=== PATIENT | female | born 1980 | race African-American/Black ===

== ENCOUNTER → 2016-04-22 | Outpatient (CLI) | payer OTHER ==
[~2016-04-22] MED LIST: ARTIOIN OP; ATV/1 PO; BND25 PO; CYAN1LOZ; CYMBALTA PO; DOCU-94 PO; DULO-24 PO; GLC/500 PO; LORA5TAB3 PO; SENN-61 PO; TRIH2TAB2 PO
[2016-04-22 14:05] LABS: BASO % 0.1 %; BASO ABS # 0.01 K/uL (0-0.2); COMPLETE YES; EOS % 2.9 %; HEMATOCRIT 38.1 % (37-47); IG% 0.1 %; LYMPH % 49.9 %; LYMPH ABS # 3.43 K/uL (1.2-3.4); MEAN CELL VOLUME 86.2 fL (80-100); MEAN CORPUSCULAR HGB CONC 33.6 g/dl (32-36); MEAN PLATELET VOLUME 10.3 fL (7.4-10.4); MONO % 7.9 %; NEUT % 39.1 %; PLATELET COUNT 216 K/uL (130-400); RED BLOOD COUNT 4.42 M/uL (4.2-5.4); WHITE BLOOD COUNT 6.87 K/uL (4.8-10.8)
[2016-04-22 14:16] LABS: ALT/SGPT 29 U/L (12-78); AST/SGOT 16 U/L (15-37); BLOOD UREA NITROGEN 11 mg/dl (7-18); BUN/CREATININE RATIO 11.5 (10-20); CALCIUM 8.6 mg/dl (8.5-10.1); CARBON DIOXIDE 26 mmol/L (21-32); CHLORIDE 104 mmol/L (98-107); CREATININE 0.91 mg/dl (0.60-1.20); GLUCOSE 164 mg/dl (70-99); POTASSIUM 3.9 mmol/L (3.5-5.1); SODIUM 140 mmol/L (136-145)
[2016-04-22 14:24] LABS: ALB/GLOB RATIO 0.8 (0.9-2); ALKALINE PHOSPHATASE 54 U/L (45-117); FERRITIN 85.2 ng/ml (8.0-388.0); TOTAL IRON BINDING CAPACITY 291 mcg/dl (250-450)
== END | disposition home or self-care (01) ==
LOC: C.LABBC 09:30
PROVIDERS: ATTEND Family Medicine
DX: E28.2 Polycystic ovarian syndrome (principal); D50.9 Iron deficiency anemia, unspecified; F31.9 Bipolar disorder, unspecified; K59.09 Other constipation

== ENCOUNTER → 2016-10-06 | Outpatient (CLI) | payer OTHER ==
[2016-10-06 18:06] LABS: BLOOD UREA NITROGEN 16 mg/dl (7-18); BUN/CREATININE RATIO 12.1 (10-20); CALCIUM 9.6 mg/dl (8.5-10.1); CARBON DIOXIDE 29 mmol/L (21-32); CHLORIDE 93 mmol/L (98-107); POTASSIUM 4.6 mmol/L (3.5-5.1); SODIUM 128 mmol/L (136-145)
[2016-10-06 18:09] LABS: GLUCOSE 623 mg/dl (70-99)
[2016-10-06 18:28] LABS: BETA-HYDROXYBUTYRATE 2.06 mg/dL (0.2-2.81)
[2016-10-07 06:42] LABS: ESTIMATED AVERAGE GLUCOSE 275 mg/dl
[2016-10-07 06:55] LABS: HA1C FLAG Peak Unknown (Normal)
== END | disposition home or self-care (01) ==
LOC: C.LABBC 15:18
PROVIDERS: ATTEND Physician Assistant Medical
DX: Z00.00 Encounter for general adult medical examination without abnormal findings (principal); K59.09 Other constipation; R73.03 Prediabetes; E28.2 Polycystic ovarian syndrome

== ENCOUNTER 2016-10-07 11:18 | Emergency (ER) | payer OTHER ==
[~2016-10-07] VITALS: Ht 162.6 cm; Wt 104.0 kg
[~2016-10-07 11:18] MED LIST changes: -ARTIOIN OP; -ATV/1 PO; -BND25 PO; -CYAN1LOZ; -DOCU-94 PO; -DULO-24 PO; -GLC/500 PO; -LORA5TAB3 PO; -SENN-61 PO; -TRIH2TAB2 PO
[2016-10-07 11:22] VITALS: TEMP 36.7; Ht 162.6 cm; Wt 104.0 kg
[2016-10-07] MEDS ORDERED: SODIUM CHLORIDE 0.9% 1000ML 2,000 ML IV STA (11:27)
--- NOTE | 2016-10-07 11:39 | EMERGENCY ROOM VISIT NOTE ---
History Report prepared by Dennise: Emily Cabrera Under the Supervision of: Dr. Gaurav Franco M.D. First contact with patient: 11:25 Chief Complaint: HYPERGLYCEMIA Stated Complaint: HIGH BLOOD SUGER History of Present Illness The patient is a 36 year old female who presents to the Emergency Room with complaints of persistent hyperglycemia that was found yesterday. She currently rates her discomfort as a 4/10 in severity. The patient states that over the past two weeks she has been feeling poorly, but attributed her symptoms to her anti-psychotic medications she is prescribed. She states that she consulted her psychiatrist and she was instructed to see her PCP. The patient states that over the past two weeks she has been noticing an increase in urination, and increase in thirst, general weakness, dry mouth, and her hair falling out. She states that she saw her PCP yesterday and had a physical done. The patient states that she was found to have a blood glucose over 600. She states that she was instructed to come to the emergency department for further treatment and work up due to her elevated blood glucose levels. The patient denies any history of diabetes or elevated blood glucose levels. She states that she has been experiencing diarrhea, but denies any vomiting. The patient states that she has been feeling faint with activity. She reports a history of bi-polar disorder. Source of History: patient Onset: yesterday Position: other (global) Symptom Intensity: 4/10 Quality: other (hyperglycemia) Timing: other (persistent) Associated Symptoms: + diarrhea, + weakness, No vomiting Note: Associated Symptoms: increase in urination, increase in thirst, hair falling out , feeling faint. Review of Systems See HPI for pertinent positives & negatives. A total of 10 systems reviewed and were otherwise negative. Past Medical & Surgical Medical Problems: (1) Fracture of metatarsal bone (2) No chronic problems Family History Hypertension Social History Smoking Status: Never Smoker Alcohol Use: none Drug Use: none Marital Status: single Housing Status: unknown Occupation Status: employed Current/Historical Medications Scheduled Artificial Tears Oph Oint (Lacri-Lube Sop Oph Oint), 0.25-0.5 INCH OP QID Diphenhydramine Hcl (Benadryl), 25 MG PO BID Docusate Sodium (Colace), 1 CAP PO BID Duloxetine HCl (Cymbalta), 1 CAP PO DAILY Loratadine & Pseudoephedrine (Claritin-D 12 Hour), 1 TAB PO BID Lorazepam (Ativan), 1 MG PO Q6H Metformin Hcl (Glucophage), 500 MG PO DAILY Trihexyphenidyl Hcl (Artane), 1 TAB PO BID Miscellaneous Medications Cyanocobalamin (Vitamin B 12) Senna (Senokot), 1 TAB PO Allergies Coded Allergies: NUTS (Verified Allergy, Severe, HIVES, 10/07/16) Physical Exam Vital Signs Date Time Temp Pulse Resp B/P (MAP) Pulse Ox O2 Delivery O2 Flow Rate FiO2 10/07/16 12:59 88 18 100/56 94 10/07/16 11:22 36.7 98 20 117/70 94 Room Air Physical Exam GENERAL: Patient is in no acute distress. HEENT: No acute trauma, normocephalic atraumatic, mucous membranes dry, no nasal congestion, no scleral icterus. NECK: No stridor, no adenopathy, no meningismus, trachea is midline. LUNGS: Clear to auscultation bilaterally, no wheeze, no rhonchi, breath sounds equal. HEART: Without murmurs gallops or rubs, regular rate and rhythm. ABDOMEN: Soft, nontender, bowel sounds positive, no hernias, no peritonitis. EXTREMITIES: No cyanosis or edema, full range of motion of all the joints without pain or difficulty, no signs for acute trauma. NEUROLOGIC: Oriented x 3, no acute motor or sensory deficits, no focal weakness. SKIN: No rash, no jaundice, no diaphoresis. Medical Decision & Procedures ER Provider Diagnostic Interpretation: X-ray results as stated below per interpretation by me and the radiologist: CHEST ONE VIEW PORTABLE CLINICAL HISTORY: 36 years-old Female presenting with EVALUATE ALTERED MENTAL STATUS/WEAKNESS. TECHNIQUE: Portable upright AP view of the chest was obtained. COMPARISON: 12/31/2014. FINDINGS: Cardiomediastinal silhouette normal. Lungs and pleural spaces clear. Osseous structures normal. Upper abdomen normal. IMPRESSION: 1. No acute cardiopulmonary disease. Electronically signed by: Chapo Willson M.D. 10/07/2016 11:49 AM Dictated Date/Time: 10/07/2016 11:48 AM Laboratory Results 10/07/16 11:40 Red Blood Count 4.72, Mean Corpuscular Volume 81.6, Mean Corpuscular Hemoglobin 28.4, Mean Corpuscular Hemoglobin Concent 34.8, Mean Platelet Volume 11.5, Neutrophils (%) (Auto) 44.1, Lymphocytes (%) (Auto) 45.6, Monocytes (%) (Auto) 7.4, Eosinophils (%) (Auto) 2.3, Basophils (%) (Auto) 0.3, Neutrophils # (Auto) 2.68, Lymphocytes # (Auto) 2.77, Monocytes # (Auto) 0.45, Eosinophils # (Auto) 0.14, Basophils # (Auto) 0.02 10/07/16 11:40 Test 10/07/16 11:40 10/07/16 13:00 10/07/16 14:26 White Blood Count 6.08 K/uL (4.8-10.8) Red Blood Count 4.72 M/uL (4.2-5.4) Hemoglobin 13.4 g/dL (12.0-16.0) Hematocrit 38.5 % (37-47) Mean Corpuscular Volume 81.6 fL (80-100) Mean Corpuscular Hemoglobin 28.4 pg (25-34) Mean Corpuscular Hemoglobin Concent 34.8 g/dl (32-36) Platelet Count 176 K/uL (130-400) Mean Platelet Volume 11.5 fL (7.4-10.4) Neutrophils (%) (Auto) 44.1 % Lymphocytes (%) (Auto) 45.6 % Monocytes (%) (Auto) 7.4 % Eosinophils (%) (Auto) 2.3 % Basophils (%) (Auto) 0.3 % Neutrophils # (Auto) 2.68 K/uL (1.4-6.5) Lymphocytes # (Auto) 2.77 K/uL (1.2-3.4) Monocytes # (Auto) 0.45 K/uL (0.11-0.59) Eosinophils # (Auto) 0.14 K/uL (0-0.5) Basophils # (Auto) 0.02 K/uL (0-0.2) RDW Standard Deviation 36.7 fL (36.4-46.3) RDW Coefficient of Variation 12.3 % (11.5-14.5) Immature Granulocyte % (Auto) 0.3 % Immature Granulocyte # (Auto) 0.02 K/uL (0.00-0.02) Anion Gap 9.0 mmol/L (3-11) Est Creatinine Clear Calc Drug Dose 83.9 ml/min Estimated GFR () 75.3 Estimated GFR (Non- 65.0 BUN/Creatinine Ratio 13.1 (10-20) Calcium Level 8.9 mg/dl (8.5-10.1) Magnesium Level 1.8 mg/dl (1.8-2.4) Total Bilirubin 0.6 mg/dl (0.2-1) Aspartate Amino Transf (AST/SGOT) 58 U/L (15-37) Alanine Aminotransferase (ALT/SGPT) 74 U/L (12-78) Alkaline Phosphatase 75 U/L (45-117) Total Protein 7.7 gm/dl (6.4-8.2) Albumin 3.5 gm/dl (3.4-5.0) Globulin 4.2 gm/dl (2.5-4.0) Albumin/Globulin Ratio 0.8 (0.9-2) Beta-Hydroxybutyric Acid 7.88 mg/dL (0.2-2.81) Thyroid Stimulating Hormone (TSH) 0.923 uIu/ml (0.300-4.500) Human Chorionic Gonadotropin, Qual NEG (NEG) Chemistry Specimen Hemolysis Urine Color YELLOW Urine Appearance CLEAR (CLEAR) Urine pH 5.0 (4.5-7.5) Urine Specific [place] 1.034 (1.000-1.030) Urine Protein NEG (NEG) Urine Glucose (UA) 3+ (NEG) Urine Ketones 1+ (NEG) Urine Occult Blood NEG (NEG) Urine Nitrite NEG (NEG) Urine Bilirubin NEG (NEG) Urine Urobilinogen NEG (NEG) Urine Leukocyte Esterase NEG (NEG) Bedside Glucose 301 mg/dl (70-90) Laboratory results reviewed by me. Medications Administered Medications (Trade) Dose Ordered Sig/Sarah Route Start Time Stop Time Status Last Admin Dose Admin Sodium Chloride 2,000 ml @ 999 mls/hr Q2H1M STAT IV 10/07/16 11:27 10/07/16 13:27 DC 10/07/16 11:45 999 MLS/HR Insulin Human Regular (novoLIN-R U-100 PER UNIT) 10 units NOW STAT IV 10/07/16 11:42 10/07/16 11:43 DC 10/07/16 11:55 10 UNITS Insulin Human Regular (novoLIN-R U-100 PER UNIT) 10 units NOW STAT IV 10/07/16 13:37 10/07/16 13:38 DC 10/07/16 13:42 10 UNITS Sodium Chloride 500 ml @ 999 mls/hr Q31M STAT IV 10/07/16 13:37 10/07/16 14:07 DC 10/07/16 13:44 999 MLS/HR Insulin Human Regular (novoLIN-R U-100 PER UNIT) 6 units NOW STAT IV 10/07/16 14:28 10/07/16 14:29 DC 10/07/16 14:38 6 UNITS Metformin HCl (Glucophage Tab) 500 mg NOW STAT PO 10/07/16 14:31 10/07/16 14:32 DC 10/07/16 14:56 500 MG ED Course 1126: The patient was evaluated in room C6. A complete history and physical exam was performed. 1127: Ordered Sodium Chloride 2000 ml @ 999 mls/hr IV. 1142: Ordered Insulin Human Regular 10 units IV. 1337: Ordered Sodium Chloride 500 ml @ 999 mls/hr IV, Insulin Human Regular 10 units IV. 1340: I reevaluated the patient and she is resting comfortably. 1428: Ordered Insulin Human Regular 6 units IV. 1430: I discussed the patients case Adrienne Dia, [facility] PA-C. She states that the patient should be started on Metformin and they will follow up with the patient later on this week. Ordered Metformin HCl 500 mg PO. 1443: I reevaluated the patient and she is doing well. I discussed all the exam findings with her and I discussed the treatment plan. She verbalized complete understanding and agreement. She will be ready to go home shortly. Medical Decision The patient is a 36 year old female who presents to the ED with complaints of hyperglycemia. Differential diagnoses considered include New onset diabetes, dehydration, hyperglycemia, electrolyte imbalance, anemia, UTI, , pneumonia. There is no leukocytosis or concerning anemia. Renal panel testing shows hyperglycemia, no renal failure, no acidosis. No concerning hepatitis. Urinalysis does not show infection, ketones and glucose were seen. Chest film does not show pneumonia. On exam, there was no cellulitis. The patient was not toxic or febrile. testing is negative. The patient received 2 L of IV saline and then 500 mL of IV saline. She received IV insulin 10 units 2 doses. She received 6 units of IV insulin. Her blood sugar is decreasing. Last BSG was around 270. The patient was given a dose of oral Glucophage. I did speak to her family doctor's office before giving this medication. The patient will be on Glucophage daily for now and will be seen in the office in a day or 2 for a recheck and repeat BSG. The patient was given instructions on how to stick to a diabetic diet. She was encouraged to return here for vomiting, worsening symptoms or fever. She was felt stable for discharge. She is very likely a type II diabetic, new onset. Consults Time Called: 1428 Consulting Physician: [facility] Returned Call: [phone] I discussed the patients case [facility]. She states that the patient should be started on Metformin and they will follow up with the patient later on this week. Impression Primary Impression: Hyperglycemia Additional Impression: Dehydration Scribe Attestation The scribe's documentation has been prepared under my direction and personally reviewed by me in its entirety. I confirm that the note above accurately reflects all work, treatment, procedures, and medical decision making performed by me. Departure Information Dispostion Home / Self-Care Prescriptions Metformin Hcl (GLUCOPHAGE) 500 Mg Tab 500 MG PO DAILY for 15 Days, #15 TAB Prov: Gaurav Franco M.D. 10/07/16 Referrals Adrienne Dia,P.A. (PCP) Forms HOME CARE DOCUMENTATION FORM, IMPORTANT VISIT INFORMATION, WORK / SCHOOL INSTRUCTIONS Patient Instructions My [facility] Additional Instructions follow a diabetic diet as instructed start glucaphage 500 mg daily, next dose tomorrow am stay well hydrated see your doctor this week for a reheck and possible further testing return for fever, vomiting or worsening symptoms Problem Qualifiers
[2016-10-07] MEDS ORDERED: NovoLIN-R INSULIN PER UNIT CHARGE IV STA ×3 (11:42→14:28)
--- NOTE | 2016-10-07 11:50 | DIAGNOSTIC IMAGING REPORT ---
CHEST ONE VIEW PORTABLE CLINICAL HISTORY: 36 years-old Female presenting with EVALUATE ALTERED MENTAL STATUS/WEAKNESS. TECHNIQUE: Portable upright AP view of the chest was obtained. COMPARISON: 12/31/2014. FINDINGS: Cardiomediastinal silhouette normal. Lungs and pleural spaces clear. Osseous structures normal. Upper abdomen normal. IMPRESSION: 1. No acute cardiopulmonary disease. Electronically signed by: Chapo Willson M.D. 10/07/2016 11:49 AM Dictated Date/Time: 10/07/2016 11:48 AM
[2016-10-07 12:00] LABS: BASO % 0.3 %; BASO ABS # 0.02 K/uL (0-0.2); COMPLETE YES; EOS % 2.3 %; HEMATOCRIT 38.5 % (37-47); IG% 0.3 %; LYMPH % 45.6 %; LYMPH ABS # 2.77 K/uL (1.2-3.4); MEAN CELL VOLUME 81.6 fL (80-100); MEAN CORPUSCULAR HEMOGLOBIN 28.4 pg (25-34); MEAN CORPUSCULAR HGB CONC 34.8 g/dl (32-36); MEAN PLATELET VOLUME 11.5 fL (7.4-10.4); MONO % 7.4 %; NEUT % 44.1 %; PLATELET COUNT 176 K/uL (130-400); RED BLOOD COUNT 4.72 M/uL (4.2-5.4); WHITE BLOOD COUNT 6.08 K/uL (4.8-10.8)
[2016-10-07] MEDS ORDERED: LORA5TAB3 PO (12:02)
[2016-10-07] MEDS ORDERED: ARTIOIN OP (12:02)
[2016-10-07] MEDS ORDERED: SENN-61 PO (12:02)
[2016-10-07] MEDS ORDERED: DOCU-94 PO (12:02)
[2016-10-07] MEDS ORDERED: CYAN1LOZ (12:02)
[2016-10-07] MEDS ORDERED: BND25 PO (12:02)
[2016-10-07] MEDS ORDERED: DULO-24 PO (12:02)
[2016-10-07] MEDS ORDERED: ATV/1 PO (12:02)
[2016-10-07] MEDS ORDERED: TRIH2TAB2 PO (12:02)
[2016-10-07 12:28] LABS: BUN/CREATININE RATIO 13.1 (10-20); CALCIUM 8.9 mg/dl (8.5-10.1); CREATININE 1.1 mg/dl (0.60-1.20); MAGNESIUM 1.8 mg/dl (1.8-2.4)
[2016-10-07 12:35] LABS: ALB/GLOB RATIO 0.8 (0.9-2); THYROID STIMULATING HORMONE 0.923 uIu/ml (0.300-4.500)
[2016-10-07 12:45] LABS: BETA-HYDROXYBUTYRATE 7.88 mg/dL (0.2-2.81)
[2016-10-07 12:46] LABS: PREG INTERNAL NEGATIVE QC NEG CLEAR BACKGROUND; PREG INTERNAL POSITIVE QC POS CONTROL LINE
[2016-10-07 13:34] LABS: URINE APPEARANCE CLEAR (CLEAR); URINE BILIRUBIN NEG (NEG); URINE COLOR YELLOW; URINE NITRITE NEG (NEG); URINE SPECIFIC GRAVITY 1.034 (1.000-1.030); UROBILINOGEN NEG (NEG); ZZUR CULT IF INDIC CLEAN CATCH NO
[2016-10-07] MEDS ORDERED: SODIUM CHLORIDE 0.9% 500ML 500 ML IV STA (13:37)
[2016-10-07 13:48] LABS: MANUAL MICROSCOPIC REQUIRED? NO; REVIEW REQ? NO
[2016-10-07] MEDS ORDERED: METFORMIN HCL 500 MG TAB PO STA (14:31)
[2016-10-07] MEDS ORDERED: GLC/500 PO (14:40)
[2016-10-07 15:10] VITALS: BP 140/90; PULSE 91; O2SAT 98
== END 2016-10-07 15:13 | disposition home or self-care (01) ==
LOC: C.EDB 11:20 → C.EDC 15:13
DX: R73.9 Hyperglycemia, unspecified (principal); E86.0 Dehydration; F31.9 Bipolar disorder, unspecified; Z82.49 Family history of ischemic heart disease and other diseases of the circulatory system

== ENCOUNTER → 2016-11-10 | Outpatient (CLI) | payer OTHER ==
[~2016-11-10] MED LIST changes: +ARTIOIN OP; +ATV/1 PO; +BND25 PO; +CYAN1LOZ; -CYMBALTA PO; +DOCU-94 PO; +DULO-24 PO; +LORA5TAB3 PO; +SENN-61 PO; +TRIH2TAB2 PO
[2016-11-10 13:56] LABS: BLOOD UREA NITROGEN 12 mg/dl (7-18); BUN/CREATININE RATIO 15.1 (10-20); CALCIUM 8.7 mg/dl (8.5-10.1); CARBON DIOXIDE 24 mmol/L (21-32); CHLORIDE 107 mmol/L (98-107); GLUCOSE 162 mg/dl (70-99); POTASSIUM 4.2 mmol/L (3.5-5.1); SODIUM 139 mmol/L (136-145)
== END | disposition home or self-care (01) ==
LOC: C.LABBC 11:07
PROVIDERS: ATTEND Physician Assistant Medical
DX: E11.9 Type 2 diabetes mellitus without complications (principal)

== ENCOUNTER → 2016-12-08 | Outpatient (CLI) | payer OTHER ==
[2016-12-08 15:25] LABS: CREATININE RANDOM URINE 92.5 mg/dl
[2016-12-08 15:38] LABS: RATIO 7.6 mcg/mg (0-30.0)
[2016-12-08 16:44] LABS: PROLACTIN 89.41 ng/mL
[2016-12-12 02:17] LABS: 17 HYDROXYPROGEST 17180X 54 ng/dL
--- NOTE | 2016-12-14 11:54 | CODING QUERY MEDICAL NECESSITY ---
SUPPORTING DIAGNOSIS NEEDED A supporting diagnosis is required for the test/procedure performed on this patient in order for us to be reimbursed by the patient's insurance. Please provide a supporting diagnosis for the following test/procedure listed below next to the test name along with your signature. *If there is no additional diagnosis for this patient that would support the following test/procedure please document that below next to the test/procedure. Test(s)/Procedure(s) that require a supporting diagnosis: * VITAMIN D, 25-HYDROXY DIAGNOSIS: Provider Signature: Date: Thank you Cherry Valladares [employer] Once completed, please kindly fax back to [phone] For questions please call [phone]
== END | disposition home or self-care (01) ==
LOC: C.LAB1850 12:52
PROVIDERS: ATTEND Internal Medicine Endocrinology, Diabetes & Metabolism
DX: E11.65 Type 2 diabetes mellitus with hyperglycemia (principal); E22.1 Hyperprolactinemia; E28.2 Polycystic ovarian syndrome

== ENCOUNTER → 2017-03-13 | Outpatient (CLI) | payer OTHER ==
[~2017-03-13] MED LIST changes: -BND25 PO; +DIPH25CA5 PO
[2017-03-13 12:59] LABS: HEMOGLOBIN A1C 4.7 % (4.5-5.6)
== END | disposition home or self-care (01) ==
LOC: C.LAB1850 11:43
PROVIDERS: ATTEND Internal Medicine Endocrinology, Diabetes & Metabolism
DX: E11.65 Type 2 diabetes mellitus with hyperglycemia (principal); E22.1 Hyperprolactinemia

== ENCOUNTER → 2017-04-10 | Outpatient (CLI) | payer OTHER ==
[2017-04-10 12:52] LABS: HEMATOCRIT 37.2 % (37-47); HEMOGLOBIN 12.5 g/dL (12.0-16.0); MEAN CELL VOLUME 84.4 fL (80-100); MEAN CORPUSCULAR HEMOGLOBIN 28.3 pg (25-34); MEAN CORPUSCULAR HGB CONC 33.6 g/dl (32-36); MEAN PLATELET VOLUME 11.1 fL (7.4-10.4); PLATELET COUNT 207 K/uL (130-400); RED CELL DISTRIBUTION WIDTH CV 12.4 % (11.5-14.5); RED CELL DISTRIBUTION WIDTH SD 38.2 fL (36.4-46.3); WHITE BLOOD COUNT 5.53 K/uL (4.8-10.8)
[2017-04-10 12:59] LABS: ALBUMIN 3.8 gm/dl (3.4-5.0); BLOOD UREA NITROGEN 13 mg/dl (7-18); CALCIUM 9.3 mg/dl (8.5-10.1); CARBON DIOXIDE 25 mmol/L (21-32); CREATININE 0.93 mg/dl (0.60-1.20); GLUCOSE 73 mg/dl (70-99); HEMOGLOBIN A1C 4.5 % (4.5-5.6); SODIUM 139 mmol/L (136-145)
[2017-04-10 13:02] LABS: ALKALINE PHOSPHATASE 43 U/L (45-117); ALT/SGPT 53 U/L (12-78); AST/SGOT 22 U/L (15-37); CHOLESTEROL 164 mg/dl (0-200); LDL CHOLESTEROL CALCULATED 105 mg/dl
== END | disposition home or self-care (01) ==
LOC: C.LAB1850 10:40
PROVIDERS: ATTEND Internal Medicine Endocrinology, Diabetes & Metabolism
DX: Z00.00 Encounter for general adult medical examination without abnormal findings (principal); E22.1 Hyperprolactinemia; N91.5 Oligomenorrhea, unspecified; D50.9 Iron deficiency anemia, unspecified; E11.65 Type 2 diabetes mellitus with hyperglycemia

== ENCOUNTER → 2017-04-23 | Outpatient (CLI) | payer OTHER ==
[~2017-04-23] MED LIST changes: +GADAVIST IV PRN
--- NOTE | 2017-04-23 20:22 | DIAGNOSTIC IMAGING REPORT ---
MRI THE BRAIN AND PITUITARY WITHOUT A WITH GADOLINIUM CLINICAL HISTORY: A menorrhea. Elevated prolactin level. COMPARISON STUDY: Noncontrast head CT performed December 2014 FINDINGS: Sagittal T1, axial diffusion, axial T2, coronal FLAIR, dynamic coronal images through the pituitary, pre and post gadolinium axial T1, and post gadolinium thin section sagittal T1-weighted images were acquired. Imaging was performed before and after the administration of 10 cc of intravenous Gadavist No intra or extra-axial mass lesions are visualized. Axial diffusion-weighted images reveal no evidence of acute or subacute infarction. There is a focus of increased FLAIR signal at the base of the right frontal lobe. This is consistent with an area of encephalomalacia, likely secondary to a remote insult. The pituitary gland is of normal size. The optic chiasm appears normal. The infundibulum is within the midline. Dynamic images reveal a small focus of decreased enhancement within the left posterior aspect of the pituitary measuring 6 x 3 x 1 mm. In the setting of prolactinemia, this could represent a tiny pituitary microadenoma. No additional foci of abnormal enhancement are visualized. IMPRESSION: 1. No evidence of acute or subacute infarction 2. Right frontal lobe encephalomalacia 3. Tiny focus of decreased enhancement within the left posterior pituitary gland measuring 6 x 3 x 1 mm. In the setting of prolactinemia, this could represent a tiny pituitary microadenoma Electronically signed by: Tono Farias M.D. 04/23/2017 8:20 PM Dictated Date/Time: 04/23/2017 8:11 PM
== END | disposition home or self-care (01) ==
LOC: C.MRI 18:08 → EDSTATUS 19:00
PROVIDERS: ATTEND Internal Medicine Endocrinology, Diabetes & Metabolism
DX: E22.1 Hyperprolactinemia (principal); G93.89 Other specified disorders of brain

== ENCOUNTER → 2017-04-30 | Day surgery (SDC) | payer OTHER ==
[~2017-04-30] VITALS: Ht 162.6 cm; Wt 91.0 kg
[~2017-04-30] MED LIST changes: +COSYNTROPIN INJ 250 MCG in SYRINGE 4 ML IV SCH; -GADAVIST IV PRN
[2017-04-30 08:04] VITALS: BP 126/76; PULSE 75; TEMP 36.8; O2SAT 94; Ht 162.6 cm; Wt 91.0 kg
[2017-04-30 09:08] VITALS: BP 117/78; PULSE 71; TEMP 36.8; O2SAT 95
== END | disposition home or self-care (01) ==
LOC: EDSTATUS 04-06 08:00 → C.MTU 04-23 07:49 → EDSTATUS 04-23 08:00 → C.MTU 07:52 → EDSTATUS 08:00
PROVIDERS: ATTEND Internal Medicine Endocrinology, Diabetes & Metabolism
DX: E22.1 Hyperprolactinemia (principal); E28.2 Polycystic ovarian syndrome

== ENCOUNTER → 2017-06-10 | Outpatient (CLI) | payer OTHER ==
[~2017-06-10] MED LIST changes: -COSYNTROPIN INJ 250 MCG in SYRINGE 4 ML IV SCH; -SENN-61 PO
== END | disposition home or self-care (01) ==
LOC: C.PAPS 16:36
PROVIDERS: ATTEND Physician Assistant
DX: Z12.4 Encounter for screening for malignant neoplasm of cervix (principal)

== ENCOUNTER 2019-08-21 08:49 | Inpatient (IN) ==
--- NOTE | 2019-08-21 09:35 | XRay Report ---
XR chest 1V portable HISTORY: 39 years-old Female AMS acutely altered mental status COMPARISON: Chest radiograph 10/07/2016 TECHNIQUE: PA of the chest FINDINGS: Lungs are hypoinflated. Bronchovascular crowding. Cardiac silhouette is upper limits of normal in siz e, likely secondary to hypoinflation. No pneumothorax, pleural effusion or airspace consolidation typ ical for pneumonia. Bones appear grossly intact. IMPRESSION: Hypoinflation without acute process. ACT 112: Negative or not required by law. The above report was generated using voice recognition software. It may contain grammatical, syntax o r spelling errors. Electronically signed by: Jeison Malcolm M.D. 08/21/2019 9:33 AM
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
[2019-08-21 10:14] LABS: Basophils # (auto) 0.02 K/uL (0-0.2); Basophils % (auto) 0.3 %; Eosinophils # (auto) 0.19 K/uL (0-0.5); Eosinophils % (auto) 2.5 %; Hematocrit (blood only) 40.3 % (37-47); Hemoglobin 13.5 g/dL (12.0-16.0); Immature Granulocytes # (auto) 0.02 K/uL (0.00-0.02); Immature Granulocytes % (auto) 0.3 %; Lymphocytes # (auto) 3.58 K/uL (1.2-3.4); Lymphocytes % (auto) 47.2 %; Mean Corpuscular Hemoglobin 28.7 pg (25-34); Mean Corpuscular Hgb Conc 33.5 g/dL (32-36); Mean Corpuscular Volume 85.7 fL (80-100); Monocytes # (auto) 0.48 K/uL (0.11-0.59); Monocytes % (auto) 6.3 %; Neutrophils # (auto) 3.29 K/uL (1.4-6.5); Neutrophils % (auto) 43.4 %; Platelet Count 208 K/uL (130-400); RDW Coefficient of Variation 12.6 % (11.5-14.5); RDW Standard Deviation 39.4 fL (36.4-46.3); White Blood Count 7.58 K/uL (4.8-10.8)
[2019-08-21 10:26] LABS: Prothrombin Time 10.9 Seconds (9.0-12.0)
[2019-08-21 10:32] LABS: Alanine Aminotransferase 48 U/L (12-78); Albumin Level 3.6 gm/dl (3.4-5.0); Aspartate Aminotransferase 20 U/L (15-37); BUN Creatinine Ratio 14.2 (10-20); Blood Urea Nitrogen 14 mg/dl (7-18); Calcium 9.2 mg/dl (8.5-10.1); Carbon Dioxide 25 mmol/L (21-32); Chloride 108 mmol/L (98-107); Creatinine Clr Calc Pharmacy 97.3 ml/min; Est GFR (African American) 81.8; Est GFR (Non-African American) 70.6; Glucose 161 mg/dl (70-99); Magnesium 1.8 mg/dl (1.8-2.4); Potassium 3.8 mmol/L (3.5-5.1); Sodium 138 mmol/L (136-145)
[2019-08-21 10:33] LABS: Acetaminophen < 2 ug/ml (10-30)
--- NOTE | 2019-08-21 10:33 | CT Scan Report ---
CT head/brain wo con CT DOSE: 1042.04 mGy.cm HISTORY: Mental status change AMS TECHNIQUE: Multiaxial CT images of the head were performed without the use of intravenous contrast. A dose lowering technique was utilized adhering to the principles of ALARA. Comparison: 01/02/2015 Findings: The paranasal sinuses and mastoid air cells are clear. The calvarium and skull base are int act. The ventricles and sulci are within normal limits. There is no mass, hematoma, midline shift, or acute infarct. Impression: No acute intracranial abnormality. ACT 112: Negative or not required by law. The above report was generated using voice recognition software. It may contain grammatical, syntax or spelling errors. Electronically signed by: Aryan Rojo M.D. 08/21/2019 10:31 AM
[2019-08-21 10:34] LABS: Salicylate < 1.7 mg/dl (2.8-20)
[2019-08-21 10:43] LABS: Albumin Globulin Ratio 0.9 (0.9-2); Alkaline Phosphatase 52 U/L (45-117); Bilirubin,Total 1.1 mg/dl (0.2-1); Globulin 4.2 gm/dl (2.5-4.0); Thyroid Stimulating Hormone 0.818 uIu/ml (0.300-4.500); Total Protein 7.8 gm/dl (6.4-8.2); Troponin I < 0.015 ng/ml (0-0.045)
--- NOTE | 2019-08-21 10:56 | CT Scan Report ---
CT OF THE CERVICAL SPINE WITHOUT CONTRAST CLINICAL HISTORY: Altered mental status. COMPARISON STUDY: No previous studies for comparison. TECHNIQUE: Helical axial images of the cervical spine were obtained without IV contrast. Sagittal a nd coronal reconstructions were viewed. Automated exposure control was utilized for the study. A do se lowering technique was utilized adhering to the principles of ALARA. FINDINGS: Alignment of the cervical spine is anatomic. Vertebral body heights are maintained. No acut e cervical spine fracture or subluxation is present. There is no prevertebral edema. Facet joints are intact. Exam is mildly compromised by motion artifact. Central canal and neural foramen are subopti brenna assessed by CT. IMPRESSION: No acute cervical spine fracture or subluxation. ACT 112: Negative or not required by law. Electronically signed by: Johny Veras M.D. 08/21/2019 10:55 AM
[2019-08-21 10:59] LABS: Pregnancy Test, Serum Negative (Negative)
[2019-08-21 13:51] LABS: Appearance Urine Clear (Clear); Bacteria Urine Automated Negative (Negative); Bilirubin Urine Negative (Negative); Blood Urine Negative (Negative); Cast Urine Automated 0 /lpf (0-5); Color Urine Yellow; Glucose Urine UA Negative (Negative); Ketones Urine Negative (Negative); Leukocyte Esterase Urine 1+ (Negative); Nitrite Urine Negative (Negative); Protein Urine Negative (Negative); RBC Urine Automated 0-4 /hpf (0-4); Specific Gravity Urine 1.021 (1.000-1.030); Urobilinogen Urine Negative (Negative)
[2019-08-21 14:17] LABS: Amphetamines+Metham, Urine Neg (Neg); Barbiturates, Urine Neg (Neg); Benzodiazepine, Urine Neg (Neg); Cocaine, Urine Neg (Neg); MDMA (Ecstacy), Urine Neg (Neg); Methadone, Urine Neg (Neg); Opiate, Urine Neg (Neg); Phencyclidine, Urine Neg (Neg)
[2019-08-21] MEDS ORDERED: ACETAMINOPHEN 325 MG TAB PO PRN (15:49)
[2019-08-21] MEDS ORDERED: BISMUTH SUBSALICYLATE PER ML OMNICELL CHARGE PO PRN (15:49)
[2019-08-21] MEDS ORDERED: ALUMINUM/MAGNESIUM SUSP 30 ML UDC PO PRN (15:49)
[2019-08-21] MEDS ORDERED: MAGNESIUM HYDROXIDE SUSP 30 ML UDC PO PRN (15:49)
[2019-08-21] MEDS ORDERED: SODIUM CHLORIDE 0.65% NA SOLN 45 ML (OCEAN) PRN (15:49)
[2019-08-21] MEDS ORDERED: haloperidoL 5 MG TAB PO PRN (15:54)
[2019-08-21] MEDS ORDERED: LORazepam 2 MG/ML VIAL (IM USE) IM STA (16:07)
[2019-08-21] MEDS ORDERED: HALOPERIDOL LACTATE 5 MG/ML 1 ML VIAL IM STA (16:07)
[2019-08-21] MEDS ORDERED: PHARMACY GLYCEMIC MGMT CONSULT PRN (17:17)
[2019-08-21] MEDS: LORazepam 1 MG TAB PO PRN (17:23)
[2019-08-21] MEDS ORDERED: GLUCOSE 10 TABS/TUBE PO PRN (18:15)
[2019-08-21] MEDS ORDERED: DEXTROSE 50% 50 ML SYRINGE IV PRN (18:15)
[2019-08-21] MEDS ORDERED: GLUCOSE 40% GEL 15 GM TUBE PO PRN (18:15)
[2019-08-21] MEDS ORDERED: CARBOHYDRATES FOR HYPOGLYCEMIA PO PRN (18:15)
[2019-08-21] MEDS ORDERED: GLUCAGON FOR INJ 1 MG VIAL IM PRN (18:15)
[2019-08-21] MEDS: METFORMIN HCL 500 MG TAB PO SCH (18:42)
[2019-08-21] MEDS: INSULIN ASPART 100 UNITS/ML 3 ML PEN SC SCH ×2 (18:42→22:53)
[2019-08-21] MEDS: CLOTRIMAZOLE/BETAMETHASONE CR 15 GM TUBE EXT SCH (21:03)
--- NOTE | 2019-08-22 06:18 | Electrocardiogram Report ---
Test Reason : Blood Pressure : / mmHG Vent. Rate : 075 BPM Atrial Rate : 075 BPM P-R Int : 160 ms QRS Dur : 076 ms QT Int : 348 ms P-R-T Axes : 026 017 025 degrees QTc Int : 388 ms Normal sinus rhythm Nonspecific T wave abnormality Abnormal ECG When compared with ECG of 04-OCT-2018 10:30, Nonspecific T wave abnormality now evident in Anterior leads Confirmed by Rito Michelle ([id number]) on 08/22/2019 6:18:30 AM Referred By: REFERRED SELF Confirmed By:Rito Michelle
[2019-08-22] MEDS: RESTASIS: ORDER AWAITING ACTION SCH ×2 (08:38→21:11)
[2019-08-22] MEDS: METFORMIN HCL 500 MG TAB PO SCH ×2 (08:40→18:16)
--- NOTE | 2019-08-22 08:44 | History & Physical ---
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 of Portia Plt Count MPV Immature Gran % (Auto) Neut % (Auto) Lymph % (Auto) [place] % (Auto) Eos % (Auto) Baso % (Auto) Neut # (Auto) Lymph # (Auto) [place] # (Auto) Eos # (Auto) Baso # (Auto) Immature Gran # (Auto) PT INR Sodium Potassium Chloride Carbon Dioxide Anion Gap BUN Creatinine Est Cr Clr Drug Dosing Est GFR ( Amer) Est GFR (Non-Af Amer) BUN/Creatinine Ratio Glucose POC Glucose Calcium Magnesium Total Bilirubin AST ALT Alkaline Phosphatase Troponin I Total Protein Albumin Globulin Albumin/Globulin Ratio TSH HCG, Qual Negative Urine Color Urine Appearance Urine pH Ur Specific Brethren Urine Protein Urine Glucose (UA) Urine Ketones Urine Blood Urine Nitrite Urine Bilirubin Urine Urobilinogen Ur Leukocyte Esterase Urine WBC (Auto) Urine RBC (Auto) U Hyaline Cast (Auto) U Epithel Cells (Auto) Urine Bacteria (Auto) Salicylates < 1.7 L Urine Opiates Screen Ur Methadone, Qual Acetaminophen < 2 L Urine Barbiturates Ur Phencyclidine (PCP) U Amphetamin/Meth Scrn MDMA (Ecstasy) Screen U Benzodiazepines Scrn Ur Cocaine Metabolite U Marijuana (THC) Screen Ethyl Alcohol mg/dL < 3.0 08/21/19 08/21/19 08/21/19 13:35 13:35 17:17 WBC RBC Hgb Hct MCV MCH MCHC RDW Std Deviation RDW Coeff of Portia Plt Count MPV Immature Gran % (Auto) Neut % (Auto) Lymph % (Auto) [place] % (Auto) Eos % (Auto) Baso % (Auto) Neut # (Auto) Lymph # (Auto) [place] # (Auto) Eos # (Auto) Baso # (Auto) Immature Gran # (Auto) PT INR Sodium Potassium Chloride Carbon Dioxide Anion Gap BUN Creatinine Est Cr Clr Drug Dosing Est GFR ( Amer) Est GFR (Non-Af Amer) BUN/Creatinine Ratio Glucose POC Glucose 113 H Calcium Magnesium Total Bilirubin AST ALT Alkaline Phosphatase Troponin I Total Protein Albumin Globulin Albumin/Globulin Ratio TSH HCG, Qual Urine Color Yellow Urine Appearance Clear Urine pH 5.0 Ur Specific Brethren 1.021 Urine Protein Negative Urine Glucose (UA) Negative Urine Ketones Negative Urine Blood Negative Urine Nitrite Negative Urine Bilirubin Negative Urine Urobilinogen Negative Ur Leukocyte Esterase 1+ H Urine WBC (Auto) 10-30 H Urine RBC (Auto) 0-4 U Hyaline Cast (Auto) 0 U Epithel Cells (Auto) 5-10 H Urine Bacteria (Auto) Negative Salicylates Urine Opiates Screen Neg Ur Methadone, Qual Neg Acetaminophen Urine Barbiturates Neg Ur Phencyclidine (PCP) Neg U Amphetamin/Meth Scrn Neg MDMA (Ecstasy) Screen Neg U Benzodiazepines Scrn Neg Ur Cocaine Metabolite Neg U Marijuana (THC) Screen Neg Ethyl Alcohol mg/dL 08/22/19 07:57 WBC RBC Hgb Hct MCV MCH MCHC RDW Std Deviation RDW Coeff of Portia Plt Count MPV Immature Gran % (Auto) Neut % (Auto) Lymph % (Auto) [place] % (Auto) Eos % (Auto) Baso % (Auto) Neut # (Auto) Lymph # (Auto) [place] # (Auto) Eos # (Auto) Baso # (Auto) Immature Gran # (Auto) PT INR Sodium Potassium Chloride Carbon Dioxide Anion Gap BUN Creatinine Est Cr Clr Drug Dosing Est GFR ( Amer) Est GFR (Non-Af Amer) BUN/Creatinine Ratio Glucose POC Glucose 190 H Calcium Magnesium Total Bilirubin AST ALT Alkaline Phosphatase Troponin I Total Protein Albumin Globulin Albumin/Globulin Ratio TSH HCG, Qual Urine Color Urine Appearance Urine pH Ur Specific [place]thren Urine Protein Urine Glucose (UA) Urine Ketones Urine Blood Urine Nitrite Urine Bilirubin Urine Urobilinogen Ur Leukocyte Esterase Urine WBC (Auto) Urine RBC (Auto) U Hyaline Cast (Auto) U Epithel Cells (Auto) Urine Bacteria (Auto) Salicylates Urine Opiates Screen Ur Methadone, Qual Acetaminophen Urine Barbiturates Ur Phencyclidine (PCP) U Amphetamin/Meth Scrn MDMA (Ecstasy) Screen U Benzodiazepines Scrn Ur Cocaine Metabolite U Marijuana (THC) Screen Ethyl Alcohol mg/dL Current Inpatient Medications Current Inpatient Medications: Current Inpatient Medications Acetaminophen (Tylenol) 650 mg PO Q4H PRN PRN Reason: Headache or Minor Fever Stop: 09/20/19 15:48 Al Hydrox/Mg Hydrox/Simethicone (Maalox) 30 ml PO Q4H PRN PRN Reason: GI Upset Stop: 09/20/19 15:48 Benztropine Mesylate (Cogentin) 0.5 mg PO Q6 PRN PRN Reason: Muscle Spasm Stop: 09/20/19 15:53 Betamethasone/Clotrimazole (Lotrisone 1/0.5%) 1 appln EXT BID LEIF Stop: 09/20/19 20:59 Last Admin: 08/21/19 21:03 Dose: 1 appln Documented by: Bismuth Subsalicylate (Kaopectate) 15 ml PO PRN PRN PRN Reason: Loose Stool Stop: 09/20/19 15:48 Dextrose (Dextrose 50%) 25 - 50 ml IV UD PRN; Protocol PRN Reason: Hypoglycemia Protocol Stop: 09/20/19 18:14 Glucagon (Glucagen) 1 mg IM UD PRN; Protocol PRN Reason: Hypoglycemia Protocol Stop: 09/20/19 18:14 Glucose (Glucose 40%) 15 - 30 gm PO UD PRN; Protocol PRN Reason: Hypoglycemia Protocol Stop: 09/20/19 18:14 Glucose (Dex4 Glucose) 4 - 8 tabs PO UD PRN; Protocol PRN Reason: Hypoglycemia Protocol Stop: 09/20/19 18:14 Haloperidol (Haldol) 5 mg PO Q6 PRN PRN Reason: Anxiety/Agitation Stop: 09/20/19 15:53 Hydroxyzine HCl (Vistaril) 50 mg PO HSZ PRN PRN Reason: Insomnia Stop: 09/20/19 15:48 Hydroxyzine HCl (Vistaril) 25 mg PO Q4H PRN PRN Reason: Anxiety Stop: 09/20/19 15:48 Insulin Aspart (Novolog Flexpen) 0 units SC ACHS LEIF Stop: 09/20/19 17:59 Last Admin: 08/21/19 22:53 Dose: Not Given Documented by: Insulin Glargine (Lantus Solostar Pen) 20 units SQ DAILY LEIF Stop: 09/21/19 08:59 Lorazepam (Ativan) 1 mg PO Q6 PRN PRN Reason: Anxiety/Agitation Stop: 09/20/19 15:53 Last Admin: 08/21/19 17:23 Dose: 1 mg Documented by: Magnesium Hydroxide (Milk Of Magnesia) 30 ml PO DAILY PRN PRN Reason: Constipation Stop: 09/20/19 15:48 Metformin HCl (Glucophage) 1,000 mg PO BIDM LEIF Stop: 09/20/19 17:59 Last Admin: 08/21/19 18:42 Dose: Not Given Documented by: Miscellaneous (Order Awaiting Action) 1 ea N/A QS LEIF Stop: 09/21/19 00:00 Last Admin: 08/22/19 08:38 Dose: Not Given Documented by: Miscellaneous (Order Awaiting Action) 1 ea N/A QS LEIF Stop: 09/21/19 00:00 Last Admin: 08/22/19 08:38 Dose: Not Given Documented by: Miscellaneous (Carbohydrates For Hypoglycemia) 15 - 30 gm PO UD PRN PRN Reason: Hypoglycemia Treatment Stop: 09/20/19 18:14 Miscellaneous Information (Consult Glycemic Management Pharmacy) 1 ea N/A UD PRN PRN Reason: Consult Stop: 09/20/19 17:16 Sodium Chloride ([place] Nasal) 1 - 2 sprays NA PRN PRN PRN Reason: Nasal Dryness/Congestion Stop: 09/20/19 15:48
[2019-08-22] MEDS: CLOTRIMAZOLE/BETAMETHASONE CR 15 GM TUBE EXT SCH ×2 (08:45→21:11)
[2019-08-22] MEDS: INSULIN ASPART 100 UNITS/ML 3 ML PEN SC SCH ×4 (08:57→21:12)
[2019-08-22] MEDS: INSULIN GLARGINE SOLOSTAR 100 UNITS/ML 3 ML PEN SQ SCH (08:58)
[2019-08-22] MEDS: LORazepam 1 MG TAB PO PRN (09:44)
[2019-08-22] MEDS ORDERED: PHARMACY GLYCEMIC MGMT CONSULT STA (09:55)
[2019-08-22] MEDS ORDERED: OLANZapine 5 MG TABLET PO PRN (11:25)
--- NOTE | 2019-08-22 14:44 | Pharmacy Report ---
Glycemic Control Consultation - Date of Service August 22, 2019 - Scope Scope: Glycemic Pharmacist consulted for glycemic control and to write orders per [facility] inpatient glycemic control protocol. - Objective Weight: 111.7 kg Accuchecks BSG (last 24hrs): 08/21/19 08/22/19 08/22/19 17:17 07:57 12:31 POC Glucose 113 H 190 H 112 H - Recent Pertinent Medications Outpatient Anti-diabetic Regimen: * Lantus 20 units daily (22?); metformin 1000 mg BId * A1c = 13.1 % 05/15/2019; A1c refused this morning, attempting again tomorrow The patient is currently receiving: * Basal insulin: Lantus 20 units every 24 hours * Correctional Insulin: Novolog Correction per scale ACHS Goal Range: Low 110 mg/dL - High 140 mg/dL Correction Factor: 20 mg/dL/unit * Prandial insulin: Per carb ratio of 1 unit per 7 grams CHO consumed Risk Factors for Insulin Resistance: * Diet: T2DM - Assessment & Plan Assessment & Plan: ASSESSMENT: * Ms. Barcenas has a history of schizoaffective disorder and is admitted to the psychiatric unit, initially refusing medication last PM but received insulin doses/metformin this AM * Fasting this morning 190, received lantus 20 units x 1 this morning will continue for now * Prandial BSG 112, will continue current weight based stress of 2 novolog parameters PLAN FOR INPATIENT GLYCEMIC CONTROL: * Metformin 1000 mg BID * Basal insulin * Lantus 20 units SQ qAM * Bolus insulin * NovoLog per scale ACHS or Q6hrs while NPO * Goal Range: Low 110 mg/dL - High 140 mg/dL * Correction Factor: 20 mg/dL/unit * Nutritional / Prandial insulin per carb ratio of 1 unit per 7 grams CHO consumed * Please note that the plan above was derived based on current level of insulin resistance and hospital stress. These recommendations are appropriate for inpatient admission only. Plan of care upon discharge will need to be reassessed to avoid potential outpatient hypo/hyperglycemia. Thank you.
--- NOTE | 2019-08-22 16:24 | Communication Note ---
Date of Service: August 22, 2019 Spoke with Concepcion Vo and reviewed patient's history: did not complete grad school, was in a Master's program at [employer] when she became ill, and left. W as hospitalized at [facility] 03/2015 where they were unsure if she had bipolar or schizophrenia. She went to the [facility] on discharge from [place], and then went to [place] to try grad school again, against medical advice. At her last appt with Concepcion last month she was paranoid, mood elevated, speech rapid, appeared manic, and refused medication. She has consistently refused antipsychotics, doesn't agree with her diagnosis or med recommendations, and often stops medications. She recommends an involuntary outpatient commitment. She had been on Invega Sustenna and didn't like it as made her affect flat. She recommended Abilify Maintena as low risk for hyperprolactinemia and affective flattening. She had given her samples of Abilify which she refused to try.
[2019-08-22] MEDS: OLANZapine 5 MG TABLET PO SCH (21:12)
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
--- NOTE | 2019-08-23 08:41 | Pharmacy Report ---
Pharmacy Glycemic Short Note 2 - Date of Service August 23, 2019 - Glycemic Short BSG Results (Last 24 hours): 08/22/19 08/22/19 08/23/19 12:31 16:54 08:23 POC Glucose 112 H 137 H 306 H* OUTPATIENT ANTIDIABETIC REGIMEN: * Lantus 20 units daily (22?); metformin 1000 mg BID * A1c = 13.1 % 05/15/2019; follow-up A1c ordered and refused by patient ASSESSMENT: * AO is a 39 year old female with schizoaffective disorder * History of multiple hospitalizations and treatment noncompliance * BSGs reasonably well-controlled yesterday - ranging 112-190 mg/dL * Of note: patient intermittently refusing insulin and BSG checks * BSG of 306 mg/dL this morning, but patient did eat cereal about 1-1.5 hrs prior to BSG check * Will adjust CF this morning as to not overcorrect the high BSG level PLAN FOR INPATIENT GLYCEMIC CONTROL: * Continue home metformin 1000 mg PO BIDM - patient refused last 2 doses * Basal insulin - continue * Lantus 20 units SQ daily * Consider increasing Lantus tomorrow - will stick with once daily Lantus given patient non-compliance * Bolus insulin * NovoLog per scale ACHS or Q6hrs while NPO * Goal Range: Low 110 mg/dL - High 140 mg/dL * Correction Factor: 20 mg/dL/unit * Nutritional / Prandial insulin per carb ratio of 1 unit per 7 grams CHO consumed PLAN FOR DISCHARGE: * A1c in April 2019 of 13.1% demonstrates very poor outpatient glycemic control * Patient is non-compliant with medications, which may explain poor A1c - will follow BSGs while inpatient and recommend changes to regimen as needed
[2019-08-23] MEDS: INSULIN ASPART 100 UNITS/ML 3 ML PEN SC SCH ×5 (08:55→20:32)
[2019-08-23] MEDS: INSULIN GLARGINE SOLOSTAR 100 UNITS/ML 3 ML PEN SQ SCH ×2 (08:58→09:49)
[2019-08-23] MEDS ORDERED: HALOPERIDOL LACTATE 5 MG/ML 1 ML VIAL IM PRN ×2 (09:49→13:56)
[2019-08-23] MEDS: CLOTRIMAZOLE/BETAMETHASONE CR 15 GM TUBE EXT SCH (09:50)
[2019-08-23] MEDS: METFORMIN HCL 500 MG TAB PO SCH ×2 (09:50→17:43)
[2019-08-23] MEDS: OLANZapine 5 MG TABLET PO SCH (09:50)
[2019-08-23] MEDS ORDERED: LORazepam 2 MG/ML VIAL (IM USE) IM PRN (09:51)
--- NOTE | 2019-08-23 13:29 | Communication Note ---
Date of Service: August 23, 2019 I personally evaluated the patient in a [id number] interview this afternoon. I have also reviewed her medical record and discussed the case with the jason corley team. I agree that the patient suffers from schizoaffective disorder and is currently psychotic. Attempts to discuss her treatment options with her were frustrated by her insistence that I place "an ankle monitor on [her] ankle and let her leave the hospital." The patient tells me that earlier today she was "Yosef," but now she is "Tu," and that her problem is "too much cooking wine when making dinner," as well as "M.S." and claustrophobia. She cannot rationally process information and lacks the capacity to refuse antipsychotic medications. She also tells me that she will continue to refuse psychiatric medications. I agree that antipsychotic medications over objection are medically necessary at this point.
[2019-08-23] MEDS: ARIPiprazole 5 MG TAB PO SCH (14:27)
[2019-08-23] MEDS: BENZTROPINE MESYLATE 0.5 MG TAB PO PRN (16:11)
[2019-08-23] MEDS: haloperidoL 5 MG TAB PO PRN (16:11)
[2019-08-23] MEDS: LORazepam 1 MG TAB PO PRN (16:15)
[2019-08-24] MEDS: haloperidoL 5 MG TAB PO PRN ×2 (09:13→17:26)
[2019-08-24] MEDS: METFORMIN HCL 500 MG TAB PO SCH ×2 (09:13→17:29)
[2019-08-24] MEDS: INSULIN ASPART 100 UNITS/ML 3 ML PEN SC SCH ×4 (09:17→21:26)
[2019-08-24] MEDS: INSULIN GLARGINE SOLOSTAR 100 UNITS/ML 3 ML PEN SQ SCH (09:18)
[2019-08-24] MEDS: RESTASIS: ORDER AWAITING ACTION SCH ×2 (09:20→13:12)
[2019-08-24] MEDS: ARIPiprazole 5 MG TAB PO SCH (09:20)
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
[2019-08-24] MEDS: BENZTROPINE MESYLATE 0.5 MG TAB PO PRN (16:57)
[2019-08-24] MEDS ORDERED: TRIHEXYPHENIDYL HCL 2 MG TAB PO STA (17:14)
[2019-08-24] MEDS: LORazepam 1 MG TAB PO PRN (17:26)
[2019-08-25] MEDS: RESTASIS: ORDER AWAITING ACTION SCH (00:13)
[2019-08-25 08:23] LABS: Chol HDL Ratio 4; Cholesterol 222 mg/dl (0-200); HDL Cholesterol 50 mg/dl; LDL Cholesterol Calculated 150 mg/dl; Triglycerides 111 mg/dl (0-150); VLDL Cholesterol 22 mg/dl
[2019-08-25 08:53] LABS: Estimated Average Glucose 163 mg/dl; Hemoglobin A1C 7.3 % (4.5-5.6)
[2019-08-25] MEDS: METFORMIN HCL 500 MG TAB PO SCH ×2 (09:19→17:42)
[2019-08-25] MEDS: haloperidoL 5 MG TAB PO SCH (09:20)
[2019-08-25] MEDS: TRIHEXYPHENIDYL HCL 2 MG TAB PO SCH (09:20)
[2019-08-25] MEDS: INSULIN GLARGINE SOLOSTAR 100 UNITS/ML 3 ML PEN SQ SCH (09:22)
[2019-08-25] MEDS: INSULIN ASPART 100 UNITS/ML 3 ML PEN SC SCH ×4 (09:23→21:49)
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
[2019-08-25] MEDS: CLOTRIMAZOLE/BETAMETHASONE CR 15 GM TUBE EXT PRN (12:30)
[2019-08-25] MEDS: LORazepam 1 MG TAB PO PRN (17:12)
[2019-08-25] MEDS: BENZTROPINE MESYLATE 0.5 MG TAB PO PRN (17:12)
[2019-08-25] MEDS: haloperidoL 5 MG TAB PO PRN (17:13)
[2019-08-26] MEDS: RESTASIS: ORDER AWAITING ACTION SCH (04:56)
[2019-08-26] MEDS: TRIHEXYPHENIDYL HCL 2 MG TAB PO SCH (07:55)
[2019-08-26] MEDS: haloperidoL 5 MG TAB PO SCH (07:55)
[2019-08-26] MEDS: METFORMIN HCL 500 MG TAB PO SCH ×2 (07:55→17:48)
[2019-08-26] MEDS: INSULIN GLARGINE SOLOSTAR 100 UNITS/ML 3 ML PEN SQ SCH (09:07)
[2019-08-26] MEDS: INSULIN ASPART 100 UNITS/ML 3 ML PEN SC SCH ×4 (09:09→20:41)
--- NOTE | 2019-08-26 10:58 | Pharmacy Report ---
Pharmacy Glycemic Short Note 2 - Date of Service August 26, 2019 - Glycemic Short BSG Results (Last 24 hours): 08/25/19 08/25/19 08/25/19 12:34 17:04 21:43 POC Glucose 133 H 124 H 126 H 08/26/19 07:38 POC Glucose 142 H OUTPATIENT ANTIDIABETIC REGIMEN: * Lantus 20 units daily; metformin 1000 mg BID * A1c = 7.3% 08/25/19 ASSESSMENT: 08/26/19 * Blood sugars at goal, no changes needed in glycemic regimen at this time. 08/23/19 * AO is a 39 year old female with schizoaffective disorder * History of multiple hospitalizations and treatment noncompliance * BSGs reasonably well-controlled yesterday - ranging 112-190 mg/dL * Of note: patient intermittently refusing insulin and BSG checks * BSG of 306 mg/dL this morning, but patient did eat cereal about 1-1.5 hrs prior to BSG check * Will adjust CF this morning as to not overcorrect the high BSG level PLAN FOR INPATIENT GLYCEMIC CONTROL: * Continue home metformin 1000 mg PO BIDM * Basal insulin - continue * Lantus 20 units SQ daily * Bolus insulin - continue * NovoLog per scale ACHS or Q6hrs while NPO * Goal Range: Low 110 mg/dL - High 140 mg/dL * Correction Factor: 20 mg/dL/unit * Nutritional / Prandial insulin per carb ratio of 1 unit per 8 grams CHO consumed PLAN FOR DISCHARGE: * A1c 7.3 % demonstrates much better outpatient glycemic control since April, previous A1c 13.3%. * Recommend continue outpatient regimen at this time, encouraging and affirming compliance.
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
[2019-08-26] MEDS: TRIHEXYPHENIDYL HCL 2 MG TAB PO PRN (17:59)
[2019-08-26] MEDS: haloperidoL 5 MG TAB PO PRN (18:00)
[2019-08-26] MEDS: LORazepam 1 MG TAB PO PRN (18:00)
[2019-08-27] MEDS: haloperidoL 5 MG TAB PO SCH ×2 (08:31→21:15)
[2019-08-27] MEDS: TRIHEXYPHENIDYL HCL 2 MG TAB PO SCH (08:31)
[2019-08-27] MEDS: METFORMIN HCL 500 MG TAB PO SCH ×2 (08:31→18:23)
[2019-08-27] MEDS: INSULIN GLARGINE SOLOSTAR 100 UNITS/ML 3 ML PEN SQ SCH (09:04)
[2019-08-27] MEDS: INSULIN ASPART 100 UNITS/ML 3 ML PEN SC SCH ×4 (09:04→21:10)
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
[2019-08-27] MEDS ORDERED: HALOPERIDOL LACTATE 5 MG/ML 1 ML VIAL IM PRN (12:50)
[2019-08-27] MEDS ORDERED: haloperidoL 5 MG TAB PO PRN (12:50)
[2019-08-27] MEDS: LORazepam 1 MG TAB PO PRN (17:15)
[2019-08-27] MEDS: TRIHEXYPHENIDYL HCL 2 MG TAB PO PRN (17:15)
[2019-08-27] MEDS: haloperidoL 5 MG TAB PO PRN (17:15)
[2019-08-28] MEDS: INSULIN ASPART 100 UNITS/ML 3 ML PEN SC SCH ×4 (09:13→21:14)
[2019-08-28] MEDS: TRIHEXYPHENIDYL HCL 2 MG TAB PO SCH (09:14)
[2019-08-28] MEDS: METFORMIN HCL 500 MG TAB PO SCH ×2 (09:14→18:08)
[2019-08-28] MEDS: haloperidoL 5 MG TAB PO SCH ×2 (09:14→21:14)
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
[2019-08-28] MEDS: INSULIN GLARGINE SOLOSTAR 100 UNITS/ML 3 ML PEN SQ SCH (09:31)
[2019-08-28] MEDS: CLOTRIMAZOLE/BETAMETHASONE CR 15 GM TUBE EXT PRN (09:42)
[2019-08-28] MEDS: LORazepam 1 MG TAB PO PRN (18:47)
[2019-08-28] MEDS: TRIHEXYPHENIDYL HCL 2 MG TAB PO PRN (18:47)
[2019-08-28] MEDS: haloperidoL 5 MG TAB PO PRN (18:47)
[2019-08-29] MEDS: haloperidoL 5 MG TAB PO SCH ×2 (08:06→21:10)
[2019-08-29] MEDS: METFORMIN HCL 500 MG TAB PO SCH ×2 (08:06→17:39)
[2019-08-29] MEDS: TRIHEXYPHENIDYL HCL 2 MG TAB PO SCH (08:06)
[2019-08-29] MEDS: INSULIN ASPART 100 UNITS/ML 3 ML PEN SC SCH ×4 (08:50→21:28)
[2019-08-29] MEDS: INSULIN GLARGINE SOLOSTAR 100 UNITS/ML 3 ML PEN SQ SCH (08:50)
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
[2019-08-29] MEDS: DOCUSATE SODIUM 100 MG CAP PO SCH ×2 (12:59→21:10)
--- NOTE | 2019-08-29 14:08 | Pharmacy Report ---
Pharmacy Glycemic Short Note 2 - Date of Service August 29, 2019 - Glycemic Short BSG Results (Last 24 hours): 08/28/19 08/28/19 08/29/19 16:43 20:20 07:36 POC Glucose 141 H 99 137 H 08/29/19 12:42 POC Glucose 116 H OUTPATIENT ANTIDIABETIC REGIMEN: * Lantus 20 units daily; metformin 1000 mg BID * A1c = 7.3% 08/25/19 ASSESSMENT: 08/29/19 * Blood sugars at goal today, fasting BSG at 137. No changes made to insulin basal and bolus regimen. 08/26/19 * Blood sugars at goal, no changes needed in glycemic regimen at this time. 08/23/19 * AO is a 39 year old female with schizoaffective disorder * History of multiple hospitalizations and treatment noncompliance * BSGs reasonably well-controlled yesterday - ranging 112-190 mg/dL * Of note: patient intermittently refusing insulin and BSG checks * BSG of 306 mg/dL this morning, but patient did eat cereal about 1-1.5 hrs prior to BSG check * Will adjust CF this morning as to not overcorrect the high BSG level PLAN FOR INPATIENT GLYCEMIC CONTROL: * Continue home metformin 1000 mg PO BIDM * Basal insulin - continue * Lantus 20 units SQ daily * Bolus insulin - continue * NovoLog per scale ACHS or Q6hrs while NPO * Goal Range: Low 110 mg/dL - High 140 mg/dL * Correction Factor: 20 mg/dL/unit * Nutritional / Prandial insulin per carb ratio of 1 unit per 8 grams CHO consumed PLAN FOR DISCHARGE: * A1c 7.3 % demonstrates much better outpatient glycemic control since April, previous A1c 13.3%. * Recommend continue outpatient regimen at this time, encouraging and affirming compliance.
[2019-08-29] MEDS: TRIHEXYPHENIDYL HCL 2 MG TAB PO PRN (18:33)
[2019-08-29] MEDS: LORazepam 1 MG TAB PO PRN (18:33)
[2019-08-29] MEDS: haloperidoL 5 MG TAB PO PRN (18:34)
[2019-08-30] MEDS: haloperidoL 5 MG TAB PO SCH ×3 (08:50→20:59)
[2019-08-30] MEDS: METFORMIN HCL 500 MG TAB PO SCH ×2 (08:50→17:39)
[2019-08-30] MEDS: TRIHEXYPHENIDYL HCL 2 MG TAB PO SCH ×2 (08:51→20:58)
[2019-08-30] MEDS: DOCUSATE SODIUM 100 MG CAP PO SCH ×2 (08:51→20:58)
[2019-08-30] MEDS: INSULIN GLARGINE SOLOSTAR 100 UNITS/ML 3 ML PEN SQ SCH (08:52)
[2019-08-30] MEDS: INSULIN ASPART 100 UNITS/ML 3 ML PEN SC SCH ×4 (08:54→21:19)
[2019-08-30] MEDS ORDERED: HALOPERIDOL DECANOATE INJ 50 MG/ML VIAL IM ONE (09:45)
--- NOTE | 2019-08-30 09:48 | Psychiatric Progress Note ---
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 Glycemic state: with hyperglycemia Qualified Code(s): E11.65 - Type 2 diabetes mellitus with hyperglycemia (2) Schizoaffective disorder Schizoaffective disorder type: unspecified Qualified Code(s): F25.9 - Schizoaffective disorder, unspecified
[2019-08-30] MEDS: CLOTRIMAZOLE/BETAMETHASONE CR 15 GM TUBE EXT PRN (12:40)
[2019-08-30] MEDS: TRIHEXYPHENIDYL HCL 2 MG TAB PO PRN (15:59)
[2019-08-30] MEDS: LORazepam 1 MG TAB PO PRN (16:04)
[2019-08-30] MEDS: haloperidoL 5 MG TAB PO PRN (16:11)
--- NOTE | 2019-08-31 08:48 | Psychiatric Progress Note ---
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 Haloperidol Decanoate (Haldol Decanoate) 100 mg IM ONE ONE Stop: 09/02/19 09:31 Haloperidol Lactate (Haldol) 10 mg IM DAILY PRN PRN Reason: refusal of PO antipsychotics Stop: 09/22/19 13:55 Haloperidol Lactate (Haldol) 5 mg IM DAILY PRN PRN Reason: psychosis or agitation Stop: 09/22/19 09:48 Insulin Aspart (Novolog Flexpen) 0 units SC ACHS [facility] Stop: 09/20/19 17:59 Last Admin: 08/30/19 21:19 Dose: 3 units Documented by: Insulin Glargine (Lantus Solostar Pen) 20 units SQ DAILY [facility] Stop: 09/21/19 08:59 Last Admin: 08/30/19 08:52 Dose: 20 units Documented by: Lorazepam (Ativan) 1 mg PO Q4H PRN PRN Reason: psychosis Stop: 09/22/19 09:50 Last Admin: 08/30/19 16:04 Dose: 1 mg Documented by: Lorazepam (Ativan) 2 mg IM Q4H PRN PRN Reason: psychosis Stop: 09/22/19 09:50 Magnesium Hydroxide (Milk Of Magnesia) 30 ml PO DAILY PRN PRN Reason: Constipation Stop: 09/20/19 15:48 Metformin HCl (Glucophage) 1,000 mg PO BIDM [facility] Stop: 09/20/19 17:59 Last Admin: 08/30/19 17:39 Dose: 1,000 mg Documented by: Miscellaneous (Carbohydrates For Hypoglycemia) 15 - 30 gm PO UD PRN PRN Reason: Hypoglycemia Treatment Stop: 09/20/19 18:14 Miscellaneous Information (Consult Glycemic Management Pharmacy) 1 ea N/A UD PRN PRN Reason: Consult Stop: 09/20/19 17:16 Sodium Chloride ([place] Nasal) 1 - 2 sprays NA PRN PRN PRN Reason: Nasal Dryness/Congestion Stop: 09/20/19 15:48 Trihexyphenidyl HCl (Artane) 1 mg PO Q4 PRN PRN Reason: Restlessness Stop: 09/23/19 17:10 Last Admin: 08/30/19 15:59 Dose: 1 mg Documented by: Trihexyphenidyl HCl (Artane) 2 mg PO BID [facility] Stop: 09/29/19 20:59 Last Admin: 08/30/19 20:58 Dose: 2 mg Documented by: Mental Health & Subst Abuse Tx Psychiatrist Name of Psychiatrist: Kailey Vo Psychiatrist's Date of Appointment with Psychiatrist: 09/21/19 Time of Appointment with Psychiatrist: 1:00 p.m Psychiatric Appointment Comment: [facility] Therapist Name of Therapist: Kailey Britton Therapist's Date of Therapist Appointment: 09/25/19 Time of Therapist Appointment: 1:00 p.m. Therapy Appointment Comment: [facility] Schedule Maker Name of Schedule Maker: Otilio Zimmer Phone Number for Schedule Maker: [phone] Post Discharge Appointments Primary Care Physician Name Of Family Doctor: ANIBAL EVANS Primary Care Provider Appointment Comment: [address] [facility] Specialist Name of Specialist: [facility] Door Maker - Dr. Lisa Contact Information Discharge Discharge Address: [address] [place] [address] [id number], [place], [place] (1) Diabetes mellitus type 2, uncontrolled Glycemic state: with hyperglycemia Qualified Code(s): E11.65 - Type 2 diabetes mellitus with hyperglycemia (2) Schizoaffective disorder Schizoaffective disorder type: unspecified Qualified Code(s): F25.9 - Schizoaffective disorder, unspecified
[2019-08-31] MEDS: INSULIN ASPART 100 UNITS/ML 3 ML PEN SC SCH ×4 (08:58→20:59)
[2019-08-31] MEDS: INSULIN GLARGINE SOLOSTAR 100 UNITS/ML 3 ML PEN SQ SCH (09:01)
[2019-08-31] MEDS: DOCUSATE SODIUM 100 MG CAP PO SCH ×2 (09:03→20:47)
[2019-08-31] MEDS: METFORMIN HCL 500 MG TAB PO SCH ×2 (09:03→17:18)
[2019-08-31] MEDS: TRIHEXYPHENIDYL HCL 2 MG TAB PO SCH ×2 (09:03→20:46)
[2019-08-31] MEDS: haloperidoL 5 MG TAB PO SCH ×2 (09:04→20:47)
[2019-08-31] MEDS: LORazepam 1 MG TAB PO PRN (11:50)
[2019-08-31] MEDS: TRIHEXYPHENIDYL HCL 2 MG TAB PO PRN ×2 (12:53→20:50)
[2019-09-01] MEDS: TRIHEXYPHENIDYL HCL 2 MG TAB PO PRN ×2 (00:49→17:14)
[2019-09-01] MEDS: haloperidoL 5 MG TAB PO PRN (00:51)
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
[2019-09-01] MEDS: haloperidoL 5 MG TAB PO SCH ×2 (09:14→21:18)
[2019-09-01] MEDS: DOCUSATE SODIUM 100 MG CAP PO SCH ×2 (09:14→21:18)
[2019-09-01] MEDS: METFORMIN HCL 500 MG TAB PO SCH ×2 (09:14→17:10)
[2019-09-01] MEDS: TRIHEXYPHENIDYL HCL 2 MG TAB PO SCH ×2 (09:14→21:16)
[2019-09-01] MEDS: INSULIN GLARGINE SOLOSTAR 100 UNITS/ML 3 ML PEN SQ SCH (09:17)
[2019-09-01] MEDS: INSULIN ASPART 100 UNITS/ML 3 ML PEN SC SCH ×4 (09:20→21:23)
[2019-09-01] MEDS ORDERED: DiphenhydrAMINE HCL 50 MG/ML VIAL IM STA (10:04)
[2019-09-01] MEDS ORDERED: DiphenhydrAMINE HCL 50 MG/ML VIAL ONE (10:06)
--- NOTE | 2019-09-01 12:14 | Pharmacy Report ---
Pharmacy Glycemic Sign Off Nt - Date of Service September 01, 2019 - Assessment & Plan ASSESSMENT: * Pharmacy was consulted by Dr Deluca on 08/21/19 for glycemic control and to write orders per [facility] inpatient glycemic control protocol. * Major changes made by pharmacy to antidiabetic regimen include: * adjust CF/CR * Patient has been receiving/requiring 39 units of insulin per day for adequate glycemic control * BSGs ranging 76-150 mg/dl (recent draw of 221mg/dl was after patient rec ently ate breakfast) * Regimen has not required any adjustments over the past 6 days to achieve this level of control * Do not anticipate further changes in patient status that would quickly deteriorate glycemic control (i.e. patient to be NPO for upcoming procedure, steroids tapering, starting tube feedings, etc). * Please see recommendations for outpatient antidiabetic regimen below. PLAN FOR INPATIENT GLYCEMIC CONTROL: No changes needed to current regimen. * Continue basal insulin with Lantus 20 units SQ daily * Continue NovoLog per scale ACHS/Q6hrs while NPO * Goal range = 110-140 mg/dl * CF = 20 mg/dl/unit * CR = 1 unit for ever 8 g CHO consumed * Pharmacy is signing off of glycemic consult and will no longer be making adjustments to inpatient regimen. Please feel free to re-consult if needed. Thank you. DISCHARGE RECOMMENDATIONS: * A1c 7.3 % on 08/25/19 * No changes to current regimen, encourage compliance and lifestyle modifications.
--- NOTE | 2019-09-01 17:02 | Psychiatric Progress Note ---
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 Haloperidol (Haldol) 5 mg PO Q12H PRN PRN Reason: agitation/psychosis Stop: 09/26/19 14:30 Last Admin: 09/01/19 00:51 Dose: 5 mg Documented by: Haloperidol Decanoate (Haldol Decanoate) 100 mg IM ONE ONE Stop: 09/02/19 09:31 Haloperidol Lactate (Haldol) 10 mg IM DAILY PRN PRN Reason: refusal of PO antipsychotics Stop: 09/22/19 13:55 Haloperidol Lactate (Haldol) 5 mg IM DAILY PRN PRN Reason: psychosis or agitation Stop: 09/22/19 09:48 Insulin Aspart (Novolog Flexpen) 0 units SC ACHS [facility] Stop: 09/20/19 17:59 Last Admin: 09/01/19 13:54 Dose: 7 units Documented by: Insulin Glargine (Lantus Solostar Pen) 20 units SQ DAILY [facility] Stop: 09/21/19 08:59 Last Admin: 09/01/19 09:17 Dose: 20 units Documented by: Lorazepam (Ativan) 1 mg PO Q4H PRN PRN Reason: psychosis Stop: 09/22/19 09:50 Last Admin: 08/31/19 11:50 Dose: 1 mg Documented by: Lorazepam (Ativan) 2 mg IM Q4H PRN PRN Reason: psychosis Stop: 09/22/19 09:50 Magnesium Hydroxide (Milk Of Magnesia) 30 ml PO DAILY PRN PRN Reason: Constipation Stop: 09/20/19 15:48 Metformin HCl (Glucophage) 1,000 mg PO BIDM [facility] Stop: 09/20/19 17:59 Last Admin: 09/01/19 09:14 Dose: 1,000 mg Documented by: Miscellaneous (Carbohydrates For Hypoglycemia) 15 - 30 gm PO UD PRN PRN Reason: Hypoglycemia Treatment Stop: 09/20/19 18:14 Sodium Chloride ([place] Nasal) 1 - 2 sprays NA PRN PRN PRN Reason: Nasal Dryness/Congestion Stop: 09/20/19 15:48 Trihexyphenidyl HCl (Artane) 1 mg PO Q4 PRN PRN Reason: Restlessness Stop: 09/23/19 17:10 Last Admin: 09/01/19 00:49 Dose: 1 mg Documented by: Trihexyphenidyl HCl (Artane) 2 mg PO BID LEIF Stop: 09/29/19 20:59 Last Admin: 09/01/19 09:14 Dose: 2 mg Documented by: Mental Health & Subst Abuse Tx Psychiatrist Name of Psychiatrist: Kailey Vo Psychiatrist's Date of Appointment with Psychiatrist: 09/21/19 Time of Appointment with Psychiatrist: 1:00 p.m Psychiatric Appointment Comment: [facility] Therapist Name of Therapist: Kailey Britton Therapist's Date of Therapist Appointment: 09/25/19 Time of Therapist Appointment: 1:00 p.m. Therapy Appointment Comment: [facility] Inspector Aligning Name of Inspector Aligning: Otilio Zimmer Phone Number for Inspector Aligning: [phone] Date of Appointment with Inspector Aligning: 09/04/19 Time of Appointment with Inspector Aligning: 3:00 p.m. Case Management Appointment Comment: Will meet you at your apartment Post Discharge Appointments Primary Care Physician Name Of Family Doctor: ANIBAL EVANS Primary Care Time of Appointment with PCP: Please follow up as needed Provider Appointment Comment: [address] [facility] Specialist Name of Specialist: Visual Specialist - Dr. Lisa Contact Information Discharge Discharge Address: [address] [place] [address], [place] Contact Information Comment: Housing Transitions (1) Schizoaffective disorder Schizoaffective disorder type: unspecified Qualified Code(s): F25.9 - Schizoaffective disorder, unspecified (2) Diabetes mellitus type 2, uncontrolled Glycemic state: with hyperglycemia Qualified Code(s): E11.65 - Type 2 diabetes mellitus with hyperglycemia
[2019-09-02] MEDS: TRIHEXYPHENIDYL HCL 2 MG TAB PO PRN ×3 (03:56→18:18)
[2019-09-02] MEDS: LORazepam 1 MG TAB PO PRN (03:56)
[2019-09-02] MEDS: haloperidoL 5 MG TAB PO SCH ×2 (08:16→20:56)
[2019-09-02] MEDS: DOCUSATE SODIUM 100 MG CAP PO SCH ×2 (08:16→20:55)
[2019-09-02] MEDS: TRIHEXYPHENIDYL HCL 2 MG TAB PO SCH ×2 (08:17→20:55)
[2019-09-02] MEDS: METFORMIN HCL 500 MG TAB PO SCH ×2 (08:17→17:59)
[2019-09-02] MEDS: INSULIN GLARGINE SOLOSTAR 100 UNITS/ML 3 ML PEN SQ SCH (09:10)
[2019-09-02] MEDS: INSULIN ASPART 100 UNITS/ML 3 ML PEN SC SCH ×4 (09:13→21:00)
[2019-09-02] MEDS ORDERED: HALOPERIDOL DECANOATE INJ 50 MG/ML VIAL IM ONE (09:30)
--- NOTE | 2019-09-02 11:34 | Psychiatric Progress Note ---
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 1,000 mg PO BIDM [facility] Stop: 09/20/19 17:59 Last Admin: 09/02/19 08:17 Dose: 1,000 mg Documented by: Miscellaneous (Carbohydrates For Hypoglycemia) 15 - 30 gm PO UD PRN PRN Reason: Hypoglycemia Treatment Stop: 09/20/19 18:14 Sodium Chloride ([place] Nasal) 1 - 2 sprays NA PRN PRN PRN Reason: Nasal Dryness/Congestion Stop: 09/20/19 15:48 Trihexyphenidyl HCl (Artane) 1 mg PO Q4 PRN PRN Reason: Restlessness Stop: 09/23/19 17:10 Last Admin: 09/02/19 03:56 Dose: 1 mg Documented by: Trihexyphenidyl HCl (Artane) 5 mg PO BID [facility] Stop: 10/01/19 20:59 Last Admin: 09/02/19 08:17 Dose: 5 mg Documented by: Mental Health & Subst Abuse Tx Psychiatrist Name of Psychiatrist: Kailey Vo Psychiatrist's Date of Appointment with Psychiatrist: 09/21/19 Time of Appointment with Psychiatrist: 1:00 p.m Psychiatric Appointment Comment: [id number] [facility] Therapist Name of Therapist: Kailey Britton Therapist's Date of Therapist Appointment: 09/25/19 Time of Therapist Appointment: 1:00 p.m. Therapy Appointment Comment: [id number] [facility] Insight Director Name of Insight Director: Otilio Zimmer Phone Number for Insight Director: [phone] Date of Appointment with Insight Director: 09/04/19 Time of Appointment with Insight Director: 3:00 p.m. Case Management Appointment Comment: Will meet you at your apartment Post Discharge Appointments Primary Care Physician Name Of Family Doctor: ANIBAL EVANS Primary Care Time of Appointment with PCP: Please follow up as needed Provider Appointment Comment: [id number] [facility] Specialist Name of Specialist: Funeral Arrangement Director - Dr. Lisa Contact Information Discharge Discharge Address: [address] [place] [address], [place] Contact Information Comment: Housing Transitions (1) Schizoaffective disorder Schizoaffective disorder type: unspecified Qualified Code(s): F25.9 - Schizoaffective disorder, unspecified (2) Diabetes mellitus type 2, uncontrolled Glycemic state: with hyperglycemia Qualified Code(s): E11.65 - Type 2 diabetes mellitus with hyperglycemia
[2019-09-03] MEDS: TRIHEXYPHENIDYL HCL 2 MG TAB PO PRN ×3 (02:02→18:24)
[2019-09-03] MEDS: LORazepam 1 MG TAB PO PRN (02:03)
--- NOTE | 2019-09-03 08:18 | Psychiatric Progress Note ---
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 Reason: Restlessness Stop: 09/23/19 17:10 Last Admin: 09/03/19 02:02 Dose: 1 mg Documented by: Trihexyphenidyl HCl (Artane) 5 mg PO BID [facility] Stop: 10/01/19 20:59 Last Admin: 09/02/19 20:55 Dose: 5 mg Documented by: Mental Health & Subst Abuse Tx Psychiatrist Name of Psychiatrist: Kailey Vo Psychiatrist's Date of Appointment with Psychiatrist: 09/21/19 Time of Appointment with Psychiatrist: 1:00 p.m Psychiatric Appointment Comment: [id number] [facility] Therapist Name of Therapist: Kailey Britton Therapist's Date of Therapist Appointment: 09/25/19 Time of Therapist Appointment: 1:00 p.m. Therapy Appointment Comment: [id number] [facility] Spooling Supervisor Name of Spooling Supervisor: Otilio Zimmer Phone Number for Spooling Supervisor: [phone] Date of Appointment with Spooling Supervisor: 09/04/19 Time of Appointment with Spooling Supervisor: 3:00 p.m. Case Management Appointment Comment: Will meet you at your apartment Post Discharge Appointments Primary Care Physician Name Of Family Doctor: ANIBAL EVANS Primary Care Time of Appointment with PCP: Please follow up as needed Provider Appointment Comment: [phone] [facility] Specialist Name of Specialist: Validation Analyst - Dr. Lisa Contact Information Discharge Discharge Address: [address] [place] [address], [place] Contact Information Comment: Housing Transitions (1) Diabetes mellitus type 2, uncontrolled Glycemic state: with hyperglycemia Qualified Code(s): E11.65 - Type 2 diabetes mellitus with hyperglycemia (2) Schizoaffective disorder Schizoaffective disorder type: unspecified Qualified Code(s): F25.9 - Schizoaffective disorder, unspecified
[2019-09-03] MEDS: DOCUSATE SODIUM 100 MG CAP PO SCH ×2 (09:10→20:33)
[2019-09-03] MEDS: METFORMIN HCL 500 MG TAB PO SCH ×2 (09:10→17:41)
[2019-09-03] MEDS: haloperidoL 5 MG TAB PO SCH ×2 (09:11→20:33)
[2019-09-03] MEDS: TRIHEXYPHENIDYL HCL 2 MG TAB PO SCH ×2 (09:11→20:31)
[2019-09-03] MEDS: INSULIN GLARGINE SOLOSTAR 100 UNITS/ML 3 ML PEN SQ SCH (09:14)
[2019-09-03] MEDS: INSULIN ASPART 100 UNITS/ML 3 ML PEN SC SCH ×4 (09:15→20:57)
[2019-09-04] MEDS: TRIHEXYPHENIDYL HCL 2 MG TAB PO PRN (01:49)
--- NOTE | 2019-09-04 06:43 | Discharge Summary ---
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 that she does favorably appear to respond to some degree to haloperidol, it was decided that, for the time being, it would be best to simplify medication administration by discontinuing oral aripiprazole and focusing on haloperidol. Her dose of haloperidol has been increased to a dose of 10 mg of haloperidol in the morning, and an order for medication over objection has been issued for haloperidol 10 mg IM if the patient refuses her oral antipsychotic medication. - Maintain private room 08/25 - very disorganized yesterday, seems to be willing to take po haldol last 2 doses offered, will keep at 10mg at this time with ongoing medication over objection is declined and monitor behavior during the day. She is certainly isolating but states that she feels agitated by noises and activity when outside her room needing to meditate in her room to cope, appreciate her insight and will continue MNPR for this time. Agree with consideration for haldol decanoate if she continues to respond. 08/26 - mixed picture as she is taking oral meds and at times asking for prns, showing some reorganization of thoughts, but quickly labile to irritability remains. She is sleeping which is a good sign. SHe is unwilling to engage in available activities she has been offered to occupy her attention other than laying in bed listening to radio. We will continue haldol 10mg/AM and add scheduled haldol 5mg/hs, and maintain 5mg po qday prn agitation/psychosis. - IN regards to her demands for her phone. She does indeed have a disability but there is no indication clinically that her disability requires a handheld electronic device to recover and adapt to the unit. Certainly we understand her desire and want and her difficulty with lability and will continue to try to work towards offering a variety of options to occupy her and continue to allow MNPR for her own ability to withdraw from agitating stimuli as she remains labile at this time.. Further she has access to TV or [employer] fit as diversions. 08/27 - Pt remains very irritable, and while better able to acknowledge that she was delusional and disorganized on admission she continues to be irrational as it relates to her need to be discharged from the hospital immediately. - Sleep has improved, and patient has been compliant with scheduled doses of haloperidol. Revisited the idea of transitioning to oral aripiprazole, with eventual goal of converting to an ODELL. Pt is unwilling to take this medication, and is stating she will only take haloperidol until she is able to meet with her outpatient psychiatric provider and discuss other medication options. Risks, benefits, and reasonable alternatives were discussed with patient, who is now stating she has "resolved to never go off my antipsychotic medication again, and that is your proof." She is considering if she would be willing for an ODELL - as there is potential to initiate haloperidol decanoate until patient is able to discuss options that may be more ideal for long-term treatment. - Pt continues to demand discharge based on claims of "claustrophobia", but affect is not generally consistent with these claims. Continue to offer encouragement and assist with development of coping strategies that will allow patient to take advantage of available programming and resources to distract or withdraw from agitating stimuli. - Pt is willing for support meeting with her counter caser, and was encouraged to work on her safety plan - Maintain MNPR due to significant irritability and continued mood lability. 08/28 - Continue current medication regimen, as patient is unwilling to engage in conversation to discuss antipsychotic medications that may be more ideal for long-term use given numerous co-morbidities. Consider conversion to haloperidol decanoate prior to discharge if patient is unwilling to consider an alternative agent. - Pt continues to demand discharge and has been filing numerous grievances which report "claustrophobia" - pt again made aware of numerous resources and staff available on the unit to assist with processing and distracting from these feelings. Reminded that discharge at this time is not considered safe or appropriate and patient is encouraged to focus on treatment which includes attending group programming, development of a safe discharge plan, and engaging in appropriate conversations about treatment recommendations. - Maintain MNPR 08/29 - Pt consented to initial injection of haloperidol decanoate 100mg IM given today; second 100mg IM injection ordered for 09/02/2019. Oral dose of haloperidol was reduced to 5mg BID (with continued prn availability not to exceed 20mg daily dose), and oral medication can be tapered on an outpatient basis (patient's request). - Scheduled dosing of Artane increased to 2mg BID. Patient continues to report "restlessness" and "claustrophobia", but presentation does not clearly reflect these reports. Prn doses of 1mg Artane remain available if needed - Pt was informed today that there will be changes to her housing on discharge - Family meeting scheduled with sister and counter caser to begin conversations about discharge transition. - Maintain MNPR as patient continues to be rather irritable 08/30 - Tolerated initial injection of haloperidol decanoate 100mg IM - second injection ordered for 09/01 - Continue oral haloperidol at 5mg BID, with Artane 2mg BID (prn dosing still available) - Support meeting with sister and counter caser scheduled for tomorrow - Maintain MNPR, behavior and irritability slowly improving but is not yet compatible with a shared room situation 08/31 -Today's behavior reflected a setback for the patient. Not long after she was told that her estimated length of stay would be fairly short at this point, she had what she later referred to as a "seizure" that she claims was precipitated by 1 of her peers. However, the patient was never unresponsive to verbal and visual stimuli. She did have mild cogwheel rigidity on testing, and a dystonic reaction was considered as a possible explanation. However, although she held her head back in a posture suggestive of torticollis, and although she also rolled her eyes upward in her eye sockets as if to suggest an oculogyric crisis, the patient's head and neck were supple and could be easily manipulated manually. She also tracked finger movements with her eyes, briefly, and then as if she suddenly realized what she was doing simply return to her eyes to the previous upward gaze. Vital signs and blood sugars were non-explanatory. She said that she did feel better after she was given diphenhydramine 25 mg IM, and the cogwheel rigidity noted at the time of the episode had resolved. During the episode the patient Indicating that she had had a "seizure" because she was "jealous" of attention that to other persons in the mill you were giving to each other. Subsequent to that, the patient was poorly communicative, isolated, and responded only to select questions. -1 of the things the patient did say was that she thought that she needed an increase in her dose of Artane. She has received a series of a extra doses of Artane as well as the Benadryl noted above, and today her dose of Artane has been increased from 2 mg twice a day to a dose of 5 mg twice a day with an extra dose being given in the late afternoon. -The patient's planned discharge at the beginning of next week may be delayed because of the current setback. 09/01 -Continue current medication regimen; received second haloperidol decanoate injection today, and will be due for maintenance dose 200 mg in 4 weeks (09/30/2019). We will discontinue oral haloperidol at discharge. -Fasting labs performed 08/25/2019 for monitoring on an antipsychotic: Hemoglobin A1c 7.3% (estimated average glucose 163), FLP notable for cholesterol 222. Prolactin 20.52. She will need to follow-up with her PCP for hypercholesterolemia. 09/02 -[facility] tomorrow, with discharge afterwards. 09/03 -Patient being discharged on Haldol decanoate, and although we have recommended aripiprazole with transition to Maintena due to history of hyperprolactinemia and to minimize risk of weight gain, but she refused and was only willing to take haloperidol. -Discharged on a 304 involuntary outpatient commitment. (2) Diabetes mellitus type 2, uncontrolled: 08/21 -Continue metformin and insulin, diabetic diet, consult diabetic pharmacist as glucose poorly controlled, daily BG, and Hgb A1C and FLP (patient refused blood draw this AM, will try again tomorrow). -Reviewed outpatient records from Endocrinology, Dr. Lisa and ALEJA Brar: Last seen 07/14/2019, and follow-up recommended in 1 month. She also saw her PCP 07/25/2019 who recommended Restasis for dry eyes, and follow-up with an cigarette vendor. 08/22 -Patient refusing insulin and labs. We may need to restrain her in order to administer insulin and check lab work, as BG > 300 today, with risk of DKA if she continues to refuse treatment. -Continue to attempt to get fasting labs, which she has been refusing. 08/23 - intermittently agreeable with scheduled insulin dosing - Fasting labs rescheduled for tomorrow morning 08/24 -The patient remains only intermittently agreeable to her scheduled insulin dos ages. She also has been nonadherent with diet and diabetic monitoring, and requires a great deal of support and encouragement from staff in order to achieve adherence with scheduled medications, diet, and laboratory testing. 08/25 - she seems more willing to have blood sugars taken, appreciate nursing efforts and pharamcy guidance for insuline dosing, will attempt to increase low Carbohydrate options for patient as she feels she is not getting enough to eat (some of this may be impact of abilify, but uncertain hopefully CHO craving wilil lower as that medication leaves her system) 08/26 - she is agreeable to blood sugar checks, but still feels hungry, agreeable to manugrapher consult to discuss healthy additional food options that fit with her allergies/sensitivities. 08/27 - HgbA1c is elevated at 7.3%, though decreased from 13.1% in 04/2019 -Diabetic regimen reviewed and adjusted. The patient has been more adherent with her medications and waived testing. 09/03 - Follow up with Endocrinology as directed. (3) Hyperprolactinemia: 08/21 -Per review of outpatient records, patient has a history of hyperprolactinemia with pituitary microadenoma, possibly related to paliperidone, which was discontinued > 1.5 years ago. Reviewed prolactin levels available in the system: 11/2016 level was 89.41, gradually decreased over the next 8 months and was 11.52 in 07/2018. Will order a prolactin level for tomorrow to be drawn with her fasting labs. Will recommend antipsychotic with low risk of hyperprolactinemia, as discussed above. 08/22 -patient refusing blood draws; will continue to try to get a prolactin level. Prolactin drawn on 08/24 and was found to be WNL at 20.52 (4) Central hypothyroidism: 08/21 -patient previously diagnosed with hypothyroidism and prescribed levothyroxine, but was noncompliant with it and has been off of it for some time. TSH normal on admission. (5) Athletes foot: 08/21 -reviewed dermatology note from 07/31/2019, patient was prescribed ketoconazole 2% x 3 weeks, and should have completed this. Continue to monitor and treat as needed. 08/31 -When asked about this today the patient refused to allow her feet to be examined, but she said "it is fine." Mental Health & Subst Abuse Tx Psychiatrist Name of Psychiatrist: Kailey Vo Psychiatrist's Date of Appointment with Psychiatrist: 09/21/19 Time of Appointment with Psychiatrist: 1:00 p.m Psychiatric Appointment Comment: [phone] [facility] Therapist Name of Therapist: Kailey Britton Therapist's Date of Therapist Appointment: 09/25/19 Time of Therapist Appointment: 1:00 p.m. Therapy Appointment Comment: [phone] [facility] Advertising Account Representative Name of Advertising Account Representative: Otilio Zimmer Phone Number for Advertising Account Representative: [phone] Date of Appointment with Advertising Account Representative: 09/04/19 Time of Appointment with Advertising Account Representative: 3:00 p.m. Case Management Appointment Comment: Will meet you at your apartment Post Discharge Appointments Primary Care Physician Name Of Family Doctor: ANIBAL EVANS Primary Care Time of Appointment with PCP: Please follow up as needed Provider Appointment Comment: [id number] [facility] Specialist Name of Specialist: Terrazzo Tile Maker - Dr. Lisa Smoking Cessation Counseling Tobacco Cessation Medication Prescribed at Discharge: Not Applicable/Non-Smoker Contact Information Discharge Discharge Address: [address] [place], [place] [id number], [place], [place] Contact Information Comment: Housing Transitions Discharge Plan Discharge Items Patient Disposition: Home - Self-Care Reason For Visit: SCHIZOAFFECTIVE DO Discharge Diagnosis: Schizoaffective disorder, bipolar type Activity: Per Instructions section Non-emergency contact: Psychiatrist, Therapist and Java Application Developer Call non-emergency contact if: you have any medication questions and your symptoms worsen Follow-up/Referrals: PCP,NO [Primary Care Provider] - Diet: Carb Consistent or DM2 Addtl Attending Provider Instructions: SPECIAL CARE INSTRUCTIONS: 1. Follow through with your scheduled aftercare appointments. If unable to keep an appointment, please call to reschedule. 2. Take your medication only as prescribed. Medication should not be changed or stopped without the approval of your doctor. In the event of worsening symptoms or concerns about side effects, contact your doctor immediately. YOU ARE BEING DISCHARGED ON AN INVOLUNTARY OUTPATIENT COMMITMENT. SEE ATTACHED PAPERWORK REGARDING THE TERMS OF THE COMMITMENT. 3. Utilize new healthy coping skills, anger management skills, and stress management skills learned during your hospitalization. Journal feelings and process them with a support person. Identify stressors or situations that may result in relapse, deterioration or inappropriate behaviors and develop a plan to deal with those issues. 4. If your coping skills are ineffective and you are in crisis, contact your outpatient providers for direction. If unable to reach your providers, please call the CAN HELP LINE AT or go to the closest Emergency Room. 5. Avoid alcohol and un-prescribed drugs. 6. You have been provided with the Mental Health Advance Directives Pamphlet for your review. AFTERCARE APPOINTMENTS: * Please call your insurance company prior to your scheduled appointment to confirm your aftercare providers are covered. Take your insurance information to your appointments. WHO TO CALL AND WHEN: Medical Emergencies: For questions or emergencies related to your hospital stay, please contact the Inpatient Behavioral Health Unit at [phone]. A behavioral health clinician is on-call 07/09 for the Behavioral Health Unit for emergencies At any time you feel your situation is an emergency, you may also call 911 immediately. Your Doctors Instructions noted above were prepared by provider April Perkins MD. Pending Studies at Discharge: No Stand-Alone Forms: My [facility], Smoking Cessation, Suicide Prevention Resources Medications and DC Order Prescriptions: New trihexyphenidyl 2 mg Tablet 5 mg PO BID Qty: 20 RF: 0 haloperidol decanoate 50 mg/mL Solution 200 mg IM Q4WK Qty: 4 RF: 0 Continued (DME) pen needle, diabetic [BD Ultra-Fine Mariel Pen Needle] 32 gauge x 5/32" needle See Rx Instructions .ROUTE .MEDSUPPLY Qty: 100 RF: 3 (DME) blood-glucose meter [OneTouch Verio Meter] Misc See Rx Instructions .ROUTE .MEDSUPPLY Qty: 1 RF: 0 metformin 1,000 mg tablet 1,000 mg PO BID Qty: 60 RF: 5 (DME) OneTouch Verio test strips Strip See Rx Instructions .ROUTE .MEDSUPPLY Qty: 200 RF: 3 (DME) lancets [OneTouch Delica Lancets] 33 gauge misc See Rx Instructions .ROUTE .MEDSUPPLY Qty: 200 RF: 3 butenafine 1 % cream 1 appln TOP BID Qty: 30 RF: 1 Lantus Solostar U-100 Insulin 100 unit/mL (3 mL) insulin pen 20 units SQ DAILY RF: 0 clotrimazole-betamethasone 1-0.05 % cream 1 applic TOPICAL BID RF: 0 Restasis MultiDose 0.05 % drops 1 drp OPB BID RF: 0 Discontinued fluoxetine 20 mg capsule 20 mg PO DAILY RF: 0 Discharge Orders: Discharge Order (Routine); Ordered 09/04/19 Ordered By: April Perkins Admission Data Admit Date/Time: 08/21/19 15:49 Attending Provider: April Perkins Admit Provider: Millie Deluca Primary Care Provider: PCP,NO Other Interventions: Discharge Summary Assessment (RN) Last Done: 09/04/19 08:11 PSY Interdisciplinary Discharge Planning Last Done: 09/04/19 11:31 Coding Level of Care Code 72174 D/C day mgmt > 30 min Diagnoses Schizoaffective disorder F25.9 Schizoaffective disorder type: unspecified Diabetes mellitus type 2, uncontrolled E11.65 Glycemic state: with hyperglycemia Hyperprolactinemia E22.1 Central hypothyroidism E03.8 Athletes foot B35.3
[2019-09-04] MEDS: METFORMIN HCL 500 MG TAB PO SCH (09:46)
[2019-09-04] MEDS: DOCUSATE SODIUM 100 MG CAP PO SCH (09:47)
[2019-09-04] MEDS: TRIHEXYPHENIDYL HCL 2 MG TAB PO SCH (09:47)
[2019-09-04] MEDS: INSULIN GLARGINE SOLOSTAR 100 UNITS/ML 3 ML PEN SQ SCH (09:48)
[2019-09-04] MEDS: haloperidoL 5 MG TAB PO SCH (09:48)
[2019-09-04] MEDS: INSULIN ASPART 100 UNITS/ML 3 ML PEN SC SCH (09:51)
[2019-09-30] MEDS ORDERED: HALOPERIDOL DECANOATE INJ 50 MG/ML VIAL IM SCH (09:00)
== END 2019-09-04 12:03 | disposition home or self-care (01) | DRG 885 ==
LOC: ED 08:49 → MERGE 08:49 → 3S 15:49

== ENCOUNTER 2020-03-28 18:07 | Inpatient (IN) ==
--- NOTE | 2020-03-28 18:31 | Emergency Department Note ---
Impression & Plan Mood disorder, Elevated serum glucose ED Provider Note NAME: ZAHIRA JOHNSON AGE: 39 SEX: F : 1980 ARRIVES VIA: Ambulance INFORMANT: Patient ED PROVIDER(S): Redd Caldwell DO CHIEF COMPLAINT: Mood disorder with suicidal ideations HPI: Patient is a 31-year-old female who presents the ER for command hallucinations. She has a past medical history of schizoaffective disorder, diabetes type 2 as well as multiple personality disorder. She notes that "Stiven" has taken over her body now. He is telling her to kill her self and to jump out a window or to drown herself. She notes that she can generally fight these urges for short period of time and then she has no control when he takes over her body and she will do what he wants her to do. She denies any headache or change in vision. No chest pain or shortness of breath. No loss of taste or sm ell, cough or runny nose. No belly pain, nausea, vomiting or diarrhea. No dysuria, urgency, or frequency. No other exacerbating or remitting factors. ROS: See above HPI for pertinent positives & negatives. A total of 10 systems reviewed and were otherwise negative. PAST MEDICAL HISTORY:See Below PAST SURGICAL HISTORY:See Below FAMILY HISTORY:See Below SOCIAL HISTORY:See Below HOME MEDICATIONS:See Below ALLERGIES:See Below VITALS:See Below PHYSICAL EXAMINATION: GENERAL: Sitting up in bed, alert, well appearing, well nourished, no distress, non-toxic EYE EXAM: normal conjunctiva. OROPHARYNX: no exudate, no erythema, lips, buccal mucosa, and tongue normal and mucous membranes are moist NECK: supple, no nuchal rigidity, no adenopathy, non-tender LUNGS: Clear to auscultation. Normal chest wall mechanics HEART: no murmurs, S1 normal and S2 normal ABDOMEN: abdomen soft, non-tender, normo-active bowel sounds, no masses, no rebound or guarding. UPPER EXTREMITIES: upper extremities are grossly normal. LOWER EXTREMITIES: No pitting edema. NEURO EXAM: Normal sensorium, cranial nerves II-XII grossly intact, normal speech, no gross weakness of arms, no gross weakness of legs. PSYCH: Admits to multiple personalities and like controlling her body with suicidal ideations with a plan to jump out a window or drown self MEDICAL DECISION MAKING: Patient is a 31-year-old female who presents the ER as she feels her body is being controlled by Stiven. He is telling her to kill her self. She knows she can normally withstand these urges for short period of time and then has to follow everything that she is told to. Labs showed no significant leukocytosis or anemia. BMP was unremarkable with exception of slightly elevated glucose at 131. LFTs bilirubin TSH was unremarkable. was negative. UA was negative. Tox was negative. Alcohol was negative. Covid was negative. Patient was evaluated by 3 S. and admitted on 201. Observation Status: Indication: Patient with a family history of Diabetes, was seen first at 1815 hrs and was necessary in order to determine Medical stability and avoid unnecessary admission. Upon reevaluation, 6.5hours of observation revealed that the patient should be Admitted to psychiatric unit. Disposition date and time 0030 on 03/29/20. Triage Nursing notes reviewed. Limited review of prior medical records performed Vital Signs: reviewed and remarkable for HTN Differential diagnosis: Mood disorder, infection, hypoglycemia, electrolyte abnormalities, cardiac sources, intracerebral event, toxicologic, trauma, neurologic, as well as other pathologies. ER treatment provided: See below Diagnostics interpreted by me: ECG: none Laboratory studies: As stated above and show below. Imaging studies: none Consultation(s): none Procedures: none Critical Care: None Past Med/Surg History Medical History Abnormal finding on thyroid function test Athletes foot Chronic constipation Fracture of metatarsal bone Hyperprolactinemia Iron deficiency anemia Mass of left axilla Obesity Paranoia Polycystic ovary syndrome Sickle cell trait Status epilepticus Family History Mother Diabetes Cardiac disorder Father Diabetes Cardiac disorder Grandmother Diabetes Cardiac disorder Grandfather Diabetes Cardiac disorder Sister Depression Other Hypertension Social History Smoking Status: Never smoker Hx Alcohol Use: Yes Hx Substance Use: No Preferred Language: Sami Communication Ability: Effective Project Manager Interior Design Required: No Beliefs That Will Affect Care: None Feels Safe at Home: Yes Childhood Exposure to Second-Hand Smoke: No Assistive Devices: Brace/Splint/Immobilizer, Crutches and Glasses Allergies Allergies Allergy/AdvReac Type Severity Reaction Status Date / Time tree nut Allergy Intermediate HIVES, GI Verified 03/25/20 14:36 UPSET monosodium glutamate Allergy Verified 03/25/20 14:36 sodium glycerophosphate Allergy Unknown Verified 03/25/20 14:36 soybean AdvReac GI Symptoms Verified 03/25/20 14:36 Home Meds Home Medications Medication Instructions Recorded Confirmed lorazepam 0.5 mg PO DAILY PRN 02/12/20 03/28/20 trihexyphenidyl 5 mg PO BID 02/12/20 03/28/20 paliperidone palmitate 156 mg/mL 156 mg IM Q30D 02/20/20 03/28/20 intramuscular syringe aripiprazole PO HS 03/25/20 03/25/20 Previous Rx's Medication Instructions Recorded blood-glucose meter #1 ea 05/11/19 blood sugar diagnostic #200 ea 10/08/19 lancets 33 gauge #200 ea 10/08/19 FreeStyle Genie 14 Day [place] #1 ea NS 10/12/19 FreeStyle Genie 14 Day Sensor #2 ea NS 10/12/19 medroxyprogesterone 10 mg tablet 10 mg PO DAILY 10 Days #10 tab 01/17/20 butenafine 1 % topical cream 1 applic TOP BID #30 g 01/26/20 pen needle, diabetic 32 gauge x #100 ea 01/29/20 5/32" Lantus Solostar U-100 Insulin 100 28 unit SQ HS #15 ml NS 02/07/20 unit/mL (3 mL) subcutaneous pen metformin 1,000 mg tablet 1,000 mg PO BID #60 tab 02/14/20 ergocalciferol (vitamin D2) 50 mcg 50 mcg PO DAILY #30 cap 02/22/20 (2,000 unit) capsule imiquimod 5 % topical cream packet 1 applic TOPICAL ONCE 56 Days #24 03/06/20 ea Results & Data (ED) Vital Signs Vital Signs - 24 hr 03/28/20 18:22 03/29/20 00:21 Temperature 36.9 C Temperature Source Oral Pulse Rate 90 Pulse Rate [Right Finger] 78 Respiratory Rate 18 17 Blood Pressure 163/100 H Blood Pressure [Left Arm] 123/78 Blood Pressure Mean 121 Blood Pressure Mean [Left Arm] 93 Pulse Oximetry 99 100 Sepsis Recent Fever Within 48 Hours No Sepsis New/Unexplained Change in Mental Status No Sepsis Action Taken by Nursing No Action Required Laboratory Data Result diagrams: 03/28/20 18:47 03/28/20 18:47 Lab Results 03/28/20 03/28/20 03/28/20 Range/Units 18:47 18:47 18:47 WBC 8.29 (4.8-10.8) K/uL RBC 4.26 (4.2-5.4) M/uL Hgb 12.2 (12.0-16.0) g/dL Hct 36.5 L (37-47) % MCV 85.7 (80-100) fL MCH 28.6 (25-34) pg MCHC 33.4 (32-36) g/dL RDW Std Deviation 39.8 (36.4-46.3) fL RDW Coeff of Portia 12.8 (11.5-14.5) % Plt Count 243 (130-400) K/uL MPV 10.7 H (7.4-10.4) fL Immature Gran % (Auto) 0.1 % Neut % (Auto) 38.5 % Lymph % (Auto) 52.2 % [place] % (Auto) 7.7 % Eos % (Auto) 1.4 % Baso % (Auto) 0.1 % Neut # (Auto) 3.18 (1.4-6.5) K/uL Lymph # (Auto) 4.33 H (1.2-3.4) K/uL [place] # (Auto) 0.64 H (0.11-0.59) K/uL Eos # (Auto) 0.12 (0-0.5) K/uL Baso # (Auto) 0.01 (0-0.2) K/uL Immature Gran # (Auto) 0.01 (0.00-0.02) K/uL Sodium 138 (136-145) mmol/L Potassium 3.6 (3.5-5.1) mmol/L Chloride 105 (98-107) mmol/L Carbon Dioxide 24 (21-32) mmol/L Anion Gap 9.0 (3-11) BUN 12 (7-18) mg/dl Creatinine 1.05 (0.6-1.2) mg/dl Est Cr Clr Drug Dosing 90.9 ml/min Est GFR ( Amer) 78.0 Est GFR (Non-Af Amer) 67.3 BUN/Creatinine Ratio 11.0 (10-20) Glucose 131 H (70-99) mg/dl POC Glucose (70-99) mg/dl Calcium 9.7 (8.5-10.1) mg/dl Total Bilirubin 0.9 (0.2-1) mg/dl AST 21 (15-37) U/L ALT 65 (12-78) U/L Alkaline Phosphatase 45 (45-117) U/L Total Protein 7.7 (6.4-8.2) gm/dl Albumin 3.8 (3.4-5.0) gm/dl Globulin 3.9 (2.5-4.0) gm/dl Albumin/Globulin Ratio 1.0 (0.9-2) TSH 1.370 (0.300-4.500) uIu/ml Urine Color Urine Appearance (Clear) Urine pH (4.5-7.5) Ur Specific [place] (1.000-1.030) Urine Protein (Negative) Urine Glucose (UA) (Negative) Urine Ketones (Negative) Urine Blood (Negative) Urine Nitrite (Negative) Urine Bilirubin (Negative) Urine Urobilinogen (Negative) Ur Leukocyte Esterase (Negative) Urine WBC (Auto) (0-5) /hpf Urine RBC (Auto) (0-4) /hpf U Hyaline Cast (Auto) (0-5) /lpf U Epithel Cells (Auto) (0-5) /lpf Urine Bacteria (Auto) (Negative) POC Ur Test (NEG) Salicylates < 1.7 L (2.8-20) mg/dl Urine Opiates Screen (Neg) Ur Methadone, Qual (Neg) Acetaminophen < 2 L (10-30) ug/ml Urine Barbiturates (Neg) Ur Phencyclidine (PCP) (Neg) U Amphetamin/Meth Scrn (Neg) MDMA (Ecstasy) Screen (Neg) U Benzodiazepines Scrn (Neg) Ur Cocaine Metabolite (Neg) U Marijuana (THC) Screen (Neg) Ethyl Alcohol mg/dL (0-3) mg/dl SARS-CoV-2 Ag (Rapid) (Negative) 03/28/20 03/28/20 03/28/20 Range/Units 18:47 18:52 19:20 WBC (4.8-10.8) K/uL RBC (4.2-5.4) M/uL Hgb (12.0-16.0) g/dL Hct (37-47) % MCV (80-100) fL MCH (25-34) pg MCHC (32-36) g/dL RDW Std Deviation (36.4-46.3) fL RDW Coeff of Portia (11.5-14.5) % Plt Count (130-400) K/uL MPV (7.4-10.4) fL Immature Gran % (Auto) % Neut % (Auto) % Lymph % (Auto) % [place] % (Auto) % Eos % (Auto) % Baso % (Auto) % Neut # (Auto) (1.4-6.5) K/uL Lymph # (Auto) (1.2-3.4) K/uL [place] # (Auto) (0.11-0.59) K/uL Eos # (Auto) (0-0.5) K/uL Baso # (Auto) (0-0.2) K/uL Immature Gran # (Auto) (0.00-0.02) K/uL Sodium (136-145) mmol/L Potassium (3.5-5.1) mmol/L Chloride (98-107) mmol/L Carbon Dioxide (21-32) mmol/L Anion Gap (3-11) BUN (7-18) mg/dl Creatinine (0.6-1.2) mg/dl Est Cr Clr Drug Dosing ml/min Est GFR ( Amer) Est GFR (Non-Af Amer) BUN/Creatinine Ratio (10-20) Glucose (70-99) mg/dl POC Glucose (70-99) mg/dl Calcium (8.5-10.1) mg/dl Total Bilirubin (0.2-1) mg/dl AST (15-37) U/L ALT (12-78) U/L Alkaline Phosphatase (45-117) U/L Total Protein (6.4-8.2) gm/dl Albumin (3.4-5.0) gm/dl Globulin (2.5-4.0) gm/dl Albumin/Globulin Ratio (0.9-2) TSH (0.300-4.500) uIu/ml Urine Color Yellow Urine Appearance Clear (Clear) Urine pH 5.0 (4.5-7.5) Ur Specific [place] 1.010 (1.000-1.030) Urine Protein Negative (Negative) Urine Glucose (UA) Negative (Negative) Urine Ketones Negative (Negative) Urine Blood 2+ H (Negative) Urine Nitrite Negative (Negative) Urine Bilirubin Negative (Negative) Urine Urobilinogen Negative (Negative) Ur Leukocyte Esterase Negative (Negative) Urine WBC (Auto) 1-5 (0-5) /hpf Urine RBC (Auto) 0-4 (0-4) /hpf U Hyaline Cast (Auto) 0 (0-5) /lpf U Epithel Cells (Auto) 5-10 H (0-5) /lpf Urine Bacteria (Auto) Negative (Negative) POC Ur Test (NEG) Salicylates (2.8-20) mg/dl Urine Opiates Screen (Neg) Ur Methadone, Qual (Neg) Acetaminophen (10-30) ug/ml Urine Barbiturates (Neg) Ur Phencyclidine (PCP) (Neg) U Amphetamin/Meth Scrn (Neg) MDMA (Ecstasy) Screen (Neg) U Benzodiazepines Scrn (Neg) Ur Cocaine Metabolite (Neg) U Marijuana (THC) Screen (Neg) Ethyl Alcohol mg/dL < 3.0 (0-3) mg/dl SARS-CoV-2 Ag (Rapid) Negative (Negative) 03/28/20 03/28/20 03/28/20 Range/Units 19:20 19:20 23:26 WBC (4.8-10.8) K/uL RBC (4.2-5.4) M/uL Hgb (12.0-16.0) g/dL Hct (37-47) % MCV (80-100) fL MCH (25-34) pg MCHC (32-36) g/dL RDW Std Deviation (36.4-46.3) fL RDW Coeff of Portia (11.5-14.5) % Plt Count (130-400) K/uL MPV (7.4-10.4) fL Immature Gran % (Auto) % Neut % (Auto) % Lymph % (Auto) % [place] % (Auto) % Eos % (Auto) % Baso % (Auto) % Neut # (Auto) (1.4-6.5) K/uL Lymph # (Auto) (1.2-3.4) K/uL [place] # (Auto) (0.11-0.59) K/uL Eos # (Auto) (0-0.5) K/uL Baso # (Auto) (0-0.2) K/uL Immature Gran # (Auto) (0.00-0.02) K/uL Sodium (136-145) mmol/L Potassium (3.5-5.1) mmol/L Chloride (98-107) mmol/L Carbon Dioxide (21-32) mmol/L Anion Gap (3-11) BUN (7-18) mg/dl Creatinine (0.6-1.2) mg/dl Est Cr Clr Drug Dosing ml/min Est GFR ( Amer) Est GFR (Non-Af Amer) BUN/Creatinine Ratio (10-20) Glucose (70-99) mg/dl POC Glucose 178 H (70-99) mg/dl Calcium (8.5-10.1) mg/dl Total Bilirubin (0.2-1) mg/dl AST (15-37) U/L ALT (12-78) U/L Alkaline Phosphatase (45-117) U/L Total Protein (6.4-8.2) gm/dl Albumin (3.4-5.0) gm/dl Globulin (2.5-4.0) gm/dl Albumin/Globulin Ratio (0.9-2) TSH (0.300-4.500) uIu/ml Urine Color Urine Appearance (Clear) Urine pH (4.5-7.5) Ur Specific [place] (1.000-1.030) Urine Protein (Negative) Urine Glucose (UA) (Negative) Urine Ketones (Negative) Urine Blood (Negative) Urine Nitrite (Negative) Urine Bilirubin (Negative) Urine Urobilinogen (Negative) Ur Leukocyte Esterase (Negative) Urine WBC (Auto) (0-5) /hpf Urine RBC (Auto) (0-4) /hpf U Hyaline Cast (Auto) (0-5) /lpf U Epithel Cells (Auto) (0-5) /lpf Urine Bacteria (Auto) (Negative) POC Ur Test NEG (NEG) Salicylates (2.8-20) mg/dl Urine Opiates Screen Neg (Neg) Ur Methadone, Qual Neg (Neg) Acetaminophen (10-30) ug/ml Urine Barbiturates Neg (Neg) Ur Phencyclidine (PCP) Neg (Neg) U Amphetamin/Meth Scrn Neg (Neg) MDMA (Ecstasy) Screen Neg (Neg) U Benzodiazepines Scrn Neg (Neg) Ur Cocaine Metabolite Neg (Neg) U Marijuana (THC) Screen Neg (Neg) Ethyl Alcohol mg/dL (0-3) mg/dl SARS-CoV-2 Ag (Rapid) (Negative) Administered Medications Discontinued Medications Insulin Glargine (Lantus Per Unit Charge) 28 units SQ NOW STA Stop: 03/28/20 21:01 Last Admin: 03/28/20 22:03 Dose: 28 units Documented by: [id number] Cosigned by: [id number] Metformin HCl (Metformin Hcl 500 Mg Tab) 1,000 mg PO NOW STA Stop: 03/28/20 21:01 Last Admin: 03/28/20 22:04 Dose: 1,000 mg Documented by: [id number] Discharge Plan Visit Data Chief Complaint: Mental Health Evaluation Stated Complaint: [facility] ED Provider: Redd Caldwell Discharge Problem: Mood disorder, Elevated serum glucose Discharge Instructions Interventions: ED Discharge Assessment Last Done: 03/29/20 00:31 Forms Stand Alone Forms: [facility], Suicide Prevention Resources Prescriptions Prescriptions: No Action (DME) blood-glucose meter [OneTouch Verio Meter] Misc See Rx Instructions .ROUTE .MEDSUPPLY Qty: 1 RF: 0 (DME) lancets [OneTouch Delica Lancets] 33 gauge misc See Rx Instructions .ROUTE .MEDSUPPLY Qty: 200 RF: 3 (DME) OneTouch Verio test strips Strip See Rx Instructions .ROUTE .MEDSUPPLY Qty: 200 RF: 3 (DME) FreeStyle Genie 14 Day [place] Misc See Rx Instructions .ROUTE .MEDSUPPLY Qty: 1 RF: 0 (DME) FreeStyle Genie 14 Day Sensor Kit See Rx Instructions .ROUTE .MEDSUPPLY Qty: 2 RF: 5 butenafine 1 % cream 1 applic TOP BID Qty: 30 RF: 1 (DME) pen needle, diabetic [BD Ultra-Fine Mariel Pen Needle] 32 gauge x 5/32" needle See Rx Instructions .ROUTE .MEDSUPPLY Qty: 100 RF: 3 Lantus Solostar U-100 Insulin 100 unit/mL (3 mL) insulin pen 28 unit SQ HS Qty: 15 RF: 5 metformin 1,000 mg tablet 1,000 mg PO BID Qty: 60 RF: 5 ergocalciferol (vitamin D2) 50 mcg (2,000 unit) capsule 50 mcg PO DAILY Qty: 30 RF: 5 imiquimod 5 % cream in packet 1 applic topical ONCE 56 Days Qty: 24 RF: 4 aripiprazole PO HS RF: 0 medroxyprogesterone 10 mg tablet 10 mg PO DAILY 10 Days Qty: 10 RF: 3 Invega Sustenna 156 mg/mL syringe 156 mg IM Q30D RF: 0 lorazepam 0.5 mg tablet 0.5 mg PO DAILY PRN (Reason: Anxiety) RF: 0 trihexyphenidyl 5 mg tablet 5 mg PO BID RF: 0 Referrals Referrals: Grisel Leon PA-C [Primary Care Provider] -
[2020-03-28 19:13] LABS: Hematocrit (blood only) 36.5 % (37-47); Hemoglobin 12.2 g/dL (12.0-16.0); Mean Corpuscular Hemoglobin 28.6 pg (25-34); Mean Corpuscular Hgb Conc 33.4 g/dL (32-36); Mean Corpuscular Volume 85.7 fL (80-100); Mean Platelet Volume 10.7 fL (7.4-10.4); Platelet Count 243 K/uL (130-400); RDW Coefficient of Variation 12.8 % (11.5-14.5); RDW Standard Deviation 39.8 fL (36.4-46.3); Red Blood Count 4.26 M/uL (4.2-5.4); White Blood Count 8.29 K/uL (4.8-10.8)
[2020-03-28 19:29] LABS: Albumin Level 3.8 gm/dl (3.4-5.0); Calcium 9.7 mg/dl (8.5-10.1); Creatinine Clr Calc Pharmacy 90.9 ml/min; Est GFR (Non-African American) 67.3; Potassium 3.6 mmol/L (3.5-5.1)
[2020-03-28 19:40] LABS: Bilirubin,Total 0.9 mg/dl (0.2-1); Globulin 3.9 gm/dl (2.5-4.0); Thyroid Stimulating Hormone 1.37 uIu/ml (0.300-4.500); Total Protein 7.7 gm/dl (6.4-8.2)
[2020-03-28 19:41] LABS: Acetaminophen < 2 ug/ml (10-30); Salicylate < 1.7 mg/dl (2.8-20)
[2020-03-28 20:15] LABS: Basophils # (auto) 0.01 K/uL (0-0.2); Basophils % (auto) 0.1 %; Eosinophils # (auto) 0.12 K/uL (0-0.5); Eosinophils % (auto) 1.4 %; Immature Granulocytes # (auto) 0.01 K/uL (0.00-0.02); Immature Granulocytes % (auto) 0.1 %; Lymphocytes # (auto) 4.33 K/uL (1.2-3.4); Lymphocytes % (auto) 52.2 %; Monocytes # (auto) 0.64 K/uL (0.11-0.59); Monocytes % (auto) 7.7 %; Neutrophils # (auto) 3.18 K/uL (1.4-6.5); Neutrophils % (auto) 38.5 %
[2020-03-28 20:22] LABS: Appearance Urine Clear (Clear); Bacteria Urine Automated Negative (Negative); Bilirubin Urine Negative (Negative); Blood Urine 2+ (Negative); Cast Urine Automated 0 /lpf (0-5); Color Urine Yellow; Glucose Urine UA Negative (Negative); Ketones Urine Negative (Negative); Leukocyte Esterase Urine Negative (Negative); Nitrite Urine Negative (Negative); Protein Urine Negative (Negative); RBC Urine Automated 0-4 /hpf (0-4); Urobilinogen Urine Negative (Negative)
[2020-03-28 20:40] LABS: Amphetamines+Metham, Urine Neg (Neg); Barbiturates, Urine Neg (Neg); Benzodiazepine, Urine Neg (Neg); Cocaine, Urine Neg (Neg); MDMA (Ecstacy), Urine Neg (Neg); Methadone, Urine Neg (Neg); Opiate, Urine Neg (Neg); Phencyclidine, Urine Neg (Neg)
[2020-03-28] MEDS ORDERED: LANTUS PER UNIT CHARGE SQ STA (21:00)
[2020-03-28] MEDS ORDERED: metFORMIN HCL 500 MG TAB PO STA (21:00)
[2020-03-29] MEDS ORDERED: BISMUTH SUBSALICYLATE LIQD 236 ML PO PRN (01:09)
[2020-03-29] MEDS ORDERED: MAGNESIUM HYDROXIDE SUSP 30 ML UDC PO PRN (01:09)
[2020-03-29] MEDS ORDERED: SODIUM CHLORIDE 0.65% NA SOLN 45 ML (OCEAN) PRN (01:09)
[2020-03-29] MEDS ORDERED: hydrOXYzine HCl 25 MG TAB PO PRN ×2 (01:09)
[2020-03-29] MEDS ORDERED: ALUMINUM/MAGNESIUM SUSP 30 ML UDC PO PRN (01:09)
[2020-03-29] MEDS ORDERED: ACETAMINOPHEN 325 MG TAB PO PRN (01:09)
[2020-03-29] MEDS ORDERED: haloperidoL 5 MG TAB PO PRN (01:10)
--- NOTE | 2020-03-29 15:32 | History & Physical ---
Date of Service March 29, 2020 Impression / Recommendations Impression This is a rather complex case that is known to the behavioral health unit from a previous admission in the summer 2019. She can become floridly psychotic, highly disturbed, extremely disorganized (both in terms of behavior and in terms of her thinking). She has periodically lapsed into what she refers to as her "alters," and during these periods claims to be various entities of both genders and of various ages. There is something of a "as if" quality when this occurs, and there is some element of attention seeking observed previously. The patient also can be quite uncooperative, disagreeable, or catatonic. She has a history of symptom abeyance, and it has never been entirely clear if the apparent symptom resolution is entirely attributable to medications and other forms of treatment. The patient, herself, says that she has never taken any psychiatric medication and she thinks has been particularly helpful, but does acknowledge that she had been doing fairly well while taking Invega Sustenna. She seems to have suddenly taken the flight into health following a night's sleep after being admitted. On evaluation today the patient says that she slept well because the staff gave her something for sleep last night and she slept fairly well. She also says that she feels that having an increase in the amount of human interaction has helped. Her alters from speaking and has brought her back to "being [herself]." There is a history of nonadherence with medications and it is generally agreed that the patient needs to take a long-acting depot injectable antipsychotic. Invega Sustenna was stopped because of prolactinemia. The plan had been to switch her to Abilify Maintena, after she had tolerated Abilify 5 mg orally for approximately a month. However, at the last minute the patient refused to take Abilify as an injectable and claimed that her "alter" Stiven had ordered her not to. Of concern is the fact that at the time of admission last evening the patient was reporting that she was experiencing a command hallucination that was telling her to kill herself by jumping or by drowning, and she acknowledges today that she has a remote history of a serious suicide attempt by jumping off of a bridge. Although today she is saying that her symptoms have essentially gone into remission, her pattern during previous admissions had included the waxing and waning of symptoms, and given the severity of the presenting symptoms at admission it is agreed that inpatient psychiatric hospitalization is the least intensive, least restrictive level of care consistent with the patient's safety and clinical needs. (1) Schizoaffective disorder: 03/29/20 -The patient has been admitted to the locked inpatient psychiatric unit at [facility] and has been put on suicide precautions for safety. When appropriate, the patient will be referred for group and activity therapies. We will also anticipate family interventions, as permitted by the patient. -Following her significantly disturbed presentation last evening, today the patient seems to have taken a "flight into health," and says that her presenting symptoms, including hearing the voices of her "alters" have all stopped. She says that without the voices of the altered she is not suicidal, and she also says that her mood is "okay." However, inpatient psychiatric hospitalization is the least intensive level of care consistent with the patient's safety and clinical needs, given her history of waxing and waning symptomatology is observed during previous contact with the patient. Accordingly, additional observation at the inpatient level of hospitalization is medically necessary. Schizoaffective disorder type: bipolar Qualified Code(s): F25.0 - Schizoaffective disorder, bipolar type Present on Admission?: Yes (2) Diabetes mellitus type 2, uncontrolled: 03/29/20 -Patient's blood sugars will be monitored and we will continue the diabetic regimen that the patient has been following on an outpatient basis, with support and monitoring from nursing staff. -The patient's assertion is that she can independently follow her diabetic diet and medication regimen (including insulin) on her own, but acknowledges that sometimes her alters may interfere. Glycemic state: with hyperglycemia Qualified Code(s): E11.65 - Type 2 diabetes mellitus with hyperglycemia Present on Admission?: No Inventory Assets Strengths: Intelligent. Good social skills when stable. Some insight into her need to stay more connected with other people. Needs: History of florid psychosis, nonadherence, and limited cooperation with treatment. Risk Factors Assessment History of multiple suicide attempts, including at least one very serious suicide attempt that resulted in multiple physical injuries as well as a head injury. Mitigating is the fact that, recently, she has been cooperative with outpatient treatment and has performed an attachment with her outpatient treatment providers Male: No : No Do You Have Access To A Gun?: No Health Problems: Yes Mental Health Diagnoses: Yes Substance Use Disorders: No Previous Attempt: Yes Previous Attempt; Highly Lethal: Yes Previous Attempt; Planned: Yes Previous Attempt; Didn't Tell Anyone: Yes Family History of Suicide: No Previous Psychiatric Hospitalization: Yes Hopelessness: No Smoker: No Protective Factors Assessment Zoroastrian Beliefs: Yes ("Spiritual. Believe in a higher power. Raised Advent.") : No Responsible for Young Children: No Employed: No Stable Relationships: Yes Supportive Family: Yes Good Rapport with Provider: Yes Absence of Any Risk Factors Above: No Psychiatric History Identifying Data ZAHIRA JOHNSON ("Yosef") is a 39-year-old F who currently lives in alone in [place]. She has a history of schizoaffective disorder bipolar type and was admitted on 03/29/20 00:10 on a 201 voluntary commitment for a report of command hallucinations that tell her to commit suicide, combined with a reported intent to follow the commands. Chief Complaint "I was hearing voices. Now I'm not." History of Present Illness The patient is a 39-year-old female who presented in the ER and reported command auditory hallucinations that were telling her to kill herself. She has a known diagnosis of schizoaffective disorder and diabetes type 2. 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 She notes that "Stiven," who she identifies as one of her alters, had taken over her body and that he was telling her to kill herself by jumping out of a window or by drowning herself. She noted that she can generally fight these urges for short periods of time and then she has no control when he takes over her body and she will do what he wants her to do. The patient is under the care and treatment of a community psychiatrist, Dr. Concepcion Vo. She had been successfully treated with Invega Sustenna and was due shortly for her next monthly injection of Invega Sustenna 156 mg IM. However, the patient developed symptoms of hyperprolactinemia, and for that reason Dr. Vo had started her on aripiprazole 5 mg by mouth approximately 1 month ago. According to the record, the plan had been to switch the patient to Abilify Maintena, but the patient began asserting that her "alter," a voice that she refers to as "Stiven" had ordered her, beginning last week, to refuse to take the Abilify Maintena, and so, currently, she refused to take it. At the time of her psychiatric evaluation, following her admission to the behavioral health unit, the patient said that, inexplicably, the voice of "Stiven" and all other voices have stopped and she is no longer contemplating suicide. In retrospect, the patient says that possibly she began experiencing command auditory hallucinations because it was getting close to the time at which she would have normally taken her next Invega Sustenna injection, and she supposes that the Depo medication may have lost potency. The patient also says that she thinks that possibly the perceptual disturbances and emergence of the "alter" that she refers to as "Stiven" may have dissipated because she had been so involved in various interviews, for example with her casework specialist, emergency room staff, staff on the behavioral health unit, etc., and she thinks that perhaps this level of fairly intensive human interaction may have helped bring h er back into reality. She notes that she often spends much of her time alone in her apartment and she indicates that the the perceptual disturbances, that she refers to as her "alters" are more prominent when she is isolated. We talked her about Dr. Gupta's recommendation that she begin taking Abilify Maintena, but she says that she would much prefer to take Abilify by mouth. She has a reported history of nonadherence with medications, and it was explained to her that a once a month shot would not only be more convenient, but would be more likely to help her avoid nonadherence. However, the patient was adamant that she "prefers" taking oral medicines rather than shots because she feels that giving her shots takes away her sense of self control. There was some uncertainty about her use of lorazepam. It has been prescribed as lorazepam 0.5 mg daily as needed for anxiety, and 1 mg at bedtime as needed for sleep. However, the patient says that she may or may not take the 0.5 mg tablet during the day for sleep, and that she generally ((almost every night) takes half of a lorazepam 1 mg tablet at bedtime as needed for sleep, and then if she awakens during the night she takes the other halfand with the system she reportedly sleeps well. The patient acknowledges that she is socially isolated and has a limited support network outside of her mental health treatment providers. 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 She notes that she has a history of multiple psychiatric hospitalizations, as well as a history of multiple suicide attemptsalthough she reports that none of the attempts has been recent. Approximately 10 years ago she had what she considers to be the only truly serious suicide attempt, and that involved jumping off of a bridge. She reports that her symptoms were first consistent with depression, and then she began to hear voices and have significant mood swings in various directions, although she does not provide history that is entirely consistent with felipe or hypomania. Current Psychiatric Diagnosis: Schioaffective Disorder Bipolar Type, Depression, Anxiety Outpatient Services: The patient sees Dr. Concepcion Vo at [facility]. She reports that she has a favorable relationship with Dr. Vo. Previous Psych Admissions: The patient reports multiple psychiatric hospita lizations. Among these admissions was an admission to the [facility] behavioral health unit last summer. She was discharged from the unit in August 2019. Do You Have Access To A Gun?: No History of Previous Suicide Attempt: Yes (Multiple) Describe Attempts in the Past: Patient reports that she has a history of multiple suicide attempts Past Medication Trials: Multiple psychiatric medications. She developed increased serum prolactin levels in association with Invega. The patient does note that she cannot take any antipsychotic medication without also taking "Artane" and she prefers 5 mg twice a day. She gives a history of extrapyramidal symptoms. Past Head Trauma/Neuro History History of Concussion/Seizure: Yes (The patient reported that she was rendered unconscious and had a concussion) She does not have a history of seizures, but notes that she had a head injury associated with a suicide attempt by jumping off of a bridge that, she put it "was not quite high enough," approximately 10 years ago. Allergies Allergy/AdvReac Type Severity Reaction Status Date / Time tree nut Allergy Intermediate HIVES, GI Verified 03/25/20 14:36 UPSET monosodium glutamate Allergy Verified 03/25/20 14:36 sodium glycerophosphate Allergy Unknown Verified 03/25/20 14:36 soybean AdvReac GI Symptoms Verified 03/25/20 14:36 Home Medications Medication Instructions Recorded Confirmed Type blood-glucose meter #1 ea 05/11/19 03/28/20 Rx blood sugar diagnostic #200 ea 10/08/19 03/28/20 Rx lancets 33 gauge #200 ea 10/08/19 03/28/20 Rx FreeStyle Genie 14 Day [place] #1 ea NS 10/12/19 03/28/20 Rx FreeStyle Genie 14 Day Sensor #2 ea NS 10/12/19 03/28/20 Rx butenafine 1 % topical cream 1 applic TOP BID #30 g 01/26/20 03/28/20 Rx pen needle, diabetic 32 gauge x #100 ea 01/29/20 03/28/20 Rx 5/32" Lantus Solostar U-100 Insulin 100 28 unit SQ HS #15 ml NS 02/07/20 03/28/20 Rx unit/mL (3 mL) subcutaneous pen lorazepam 0.5 mg PO DAILY PRN 02/12/20 03/28/20 History trihexyphenidyl 5 mg PO BID 02/12/20 03/28/20 History paliperidone palmitate 156 mg/mL 234 mg IM Q30D 02/20/20 03/29/20 History intramuscular syringe ergocalciferol (vitamin D2) 50 mcg 50 mcg PO DAILY #30 cap 02/22/20 03/28/20 Rx (2,000 unit) capsule aripiprazole 5 mg PO HS 03/29/20 03/29/20 History imiquimod See Rx Instructions .ROUTE .COMPLEX 03/29/20 03/29/20 History lorazepam 1 mg PO HS 03/29/20 03/29/20 History metformin 1,000 mg PO BIDM 03/29/20 03/29/20 History Family History Family Mental Health History Comment: one sister with depression; one sister with anxiety and agoraphobia Alcohol History Hx of Alcohol Use Over the Past 12 Months: No AUDIT Total Score: 0 Smoking Use Have You Smoked or Used Tobacco Products in the Last 30 Days: No Smoking Status: Never smoker Substance History Hx of Prescription Med Misuse Over the Past 12 Months: No Hx of Over the Counter Med Misuse Over the Past 12 Months: No Hx of Inhalent Misuse Over the Past 12 Months: No Hx of Organic Substance Use Over the Past 12 Months: No Hx of Illegal Substances/Street Drug Use Over Past 12 Months: No Problems as a Result of Past Substance Use: None Identified Personal History Living Arrangements: Apartment Living Arrangements Comments: alone Born In: [place] Childhood: 1 of 6 children born of her mother and father. Her parents raised the children, but then when the patient was in her 20s. Highest Grade Completed: Graduate School Highest Grade Completed Comment: Reportedly, the patient attended [employer] and has a masters degree. However, today she says that she would prefer not to talk about it. Employment Status: Unemployed Marital Status: Number Of Children: 0 Beliefs That Will Affect Care: Spiritual (The patient notes that she believes in a higher power, and was raised as a Advent.) Current Legal Problems: No Hx Legal Problems: No Hx Traumatic Life Events: Yes Psychological Trauma History Comment: Patient reports that she has a past history of trauma and believes she may have certain symptoms of PTSD, such as flashbacks, but without nightmares. She declines to discuss the traumatic events at the present time. Patient History Medical History Abnormal finding on thyroid function test Athletes foot Chronic constipation Fracture of metatarsal bone Hyperprolactinemia Iron deficiency anemia Mass of left axilla Obesity [place] Polycystic ovary syndrome Sickle cell trait Status epilepticus Family History Mother Diabetes Cardiac disorder Father Diabetes Cardiac disorder Grandmother Diabetes Cardiac disorder Grandfather Diabetes Cardiac disorder Sister Depression Other Hypertension Social History Smoking Status: Never smoker Hx Alcohol Use: Yes Hx Substance Use: No Preferred Language: Kittitian Communication Ability: Effective Marketing Content Coordinator Required: No Beliefs That Will Affect Care: None Feels Safe at Home: Yes Childhood Exposure to Second-Hand Smoke: No Assistive Devices: Glasses Review of Systems Review of Systems: All systems reviewed & are unremarkable except as noted in HPI & below At least 10 systems were reviewed as part of the psychiatric assessment. The patient reports that she sustained multiple fractures and underwent facial surgery following an intentional LEEP from a bridge more than 10 years ago (suicide attempt). She also reports that she has type 2 diabetes and manages her blood glucose levels fairly effectively at home on her own. She reports diarrhea approximately once a week. She also has what she refers to is vaginal warts, and says that she has been told that these are not HPV warts, but she suspects that they might be. She also suffers from obesity and "athlete's feet." The patient reports that following the above-referenced suicide attempt she had a head injury that rendered her unconscious. She also has made references to having "seizures." During her most recent previous hospitalization the undersigned personally witnessed the patient have what would clearly be considered to be a pseudoseizure. Physical Exam Psychiatric: Obese Orientation: alert, oriented x 3 and cooperative Apperance: appropriately dressed, appropriately groomed and appeared stated age Eye Contact: + fair eye contact Motor Behavior: steady gait and station Speech: normal rate/rhythm/volume of speech Affect: + constricted affect "Okay." Thought Process: goal directed thought process and linear/logical thought process Thought Content: reality based without delusions The patient believes that she has dissociative identity disorder ("multiple personality disorder") and that her "alters" periodically take over her body and take control of her behaviors. Suicidal Thoughts: denies suicidal thoughts She insists that the suicidality that she reported at admission came from one of her "alters" a man that she refers to as "Stiven." Homicidal Thoughts: denies homicidal thoughts Hallucinations: + auditory hallucinations The patient reports that she hears the voices of her "alters" through her ears in the same way that she hears the examiner's voice through her ears. She says that this happens regularly, and sometimes the "alters" take over her body and sometimes they do not. Cognition: recent memory grossly intact, remote memory grossly intact, attention grossly intact and language grossly intact Estimated Intelligence: + above average estimated intelligence Insight: + limited insight Judgement: + limited judgement Vital Signs (Past 24 Hours): Last Vital Signs Temp 36.7 C 03/29/20 07:07 Pulse 86 03/29/20 07:08 Resp 18 03/29/20 07:07 BP 123/86 03/29/20 07:08 Pulse Ox 100 03/29/20 00:51 Results & Data ([facility]) Laboratory Results Laboratory Results - last 24 hr 03/28/20 03/28/20 03/28/20 18:47 18:47 18:47 WBC 8.29 RBC 4.26 Hgb 12.2 Hct 36.5 L MCV 85.7 MCH 28.6 MCHC 33.4 RDW Std Deviation 39.8 RDW Coeff of Portia 12.8 Plt Count 243 MPV 10.7 H Immature Gran % (Auto) 0.1 Neut % (Auto) 38.5 Lymph % (Auto) 52.2 [place] % (Auto) 7.7 Eos % (Auto) 1.4 Baso % (Auto) 0.1 Neut # (Auto) 3.18 Lymph # (Auto) 4.33 H [place] # (Auto) 0.64 H Eos # (Auto) 0.12 Baso # (Auto) 0.01 Immature Gran # (Auto) 0.01 Sodium 138 Potassium 3.6 Chloride 105 Carbon Dioxide 24 Anion Gap 9.0 BUN 12 Creatinine 1.05 Est Cr Clr Drug Dosing 90.9 Est GFR ( Amer) 78.0 Est GFR (Non-Af Amer) 67.3 BUN/Creatinine Ratio 11.0 Glucose 131 H POC Glucose Calcium 9.7 Total Bilirubin 0.9 AST 21 ALT 65 Alkaline Phosphatase 45 Total Protein 7.7 Albumin 3.8 Globulin 3.9 Albumin/Globulin Ratio 1.0 TSH 1.370 Urine Color Urine Appearance Urine pH Ur Specific [place] Urine Protein Urine Glucose (UA) Urine Ketones Urine Blood Urine Nitrite Urine Bilirubin Urine Urobilinogen Ur Leukocyte Esterase Urine WBC (Auto) Urine RBC (Auto) U Hyaline Cast (Auto) U Epithel Cells (Auto) Urine Bacteria (Auto) POC Ur Test Salicylates < 1.7 L Urine Opiates Screen Ur Methadone, Qual Acetaminophen < 2 L Urine Barbiturates Ur Phencyclidine (PCP) U Amphetamin/Meth Scrn MDMA (Ecstasy) Screen U Benzodiazepines Scrn Ur Cocaine Metabolite U Marijuana (THC) Screen Ethyl Alcohol mg/dL SARS-CoV-2 Ag (Rapid) 03/28/20 03/28/20 03/28/20 18:47 18:52 19:20 WBC RBC Hgb Hct MCV MCH MCHC RDW Std Deviation RDW Coeff of Portia Plt Count MPV Immature Gran % (Auto) Neut % (Auto) Lymph % (Auto) [place] % (Auto) Eos % (Auto) Baso % (Auto) Neut # (Auto) Lymph # (Auto) [place] # (Auto) Eos # (Auto) Baso # (Auto) Immature Gran # (Auto) Sodium Potassium Chloride Carbon Dioxide Anion Gap BUN Creatinine Est Cr Clr Drug Dosing Est GFR ( Amer) Est GFR (Non-Af Amer) BUN/Creatinine Ratio Glucose POC Glucose Calcium Total Bilirubin AST ALT Alkaline Phosphatase Total Protein Albumin Globulin Albumin/Globulin Ratio TSH Urine Color Yellow Urine Appearance Clear Urine pH 5.0 Ur Specific [place] 1.010 Urine Protein Negative Urine Glucose (UA) Negative Urine Ketones Negative Urine Blood 2+ H Urine Nitrite Negative Urine Bilirubin Negative Urine Urobilinogen Negative Ur Leukocyte Esterase Negative Urine WBC (Auto) 1-5 Urine RBC (Auto) 0-4 U Hyaline Cast (Auto) 0 U Epithel Cells (Auto) 5-10 H Urine Bacteria (Auto) Negative POC Ur Test Salicylates Urine Opiates Screen Ur Methadone, Qual Acetaminophen Urine Barbiturates Ur Phencyclidine (PCP) U Amphetamin/Meth Scrn MDMA (Ecstasy) Screen U Benzodiazepines Scrn Ur Cocaine Metabolite U Marijuana (THC) Screen Ethyl Alcohol mg/dL < 3.0 SARS-CoV-2 Ag (Rapid) Negative 03/28/20 03/28/20 03/28/20 19:20 19:20 23:26 WBC RBC Hgb Hct MCV MCH MCHC RDW Std Deviation RDW Coeff of Portia Plt Count MPV Immature Gran % (Auto) Neut % (Auto) Lymph % (Auto) [place] % (Auto) Eos % (Auto) Baso % (Auto) Neut # (Auto) Lymph # (Auto) [place] # (Auto) Eos # (Auto) Baso # (Auto) Immature Gran # (Auto) Sodium Potassium Chloride Carbon Dioxide Anion Gap BUN Creatinine Est Cr Clr Drug Dosing Est GFR ( Amer) Est GFR (Non-Af Amer) BUN/Creatinine Ratio Glucose POC Glucose 178 H Calcium Total Bilirubin AST ALT Alkaline Phosphatase Total Protein Albumin Globulin Albumin/Globulin Ratio TSH Urine Color Urine Appearance Urine pH Ur Specific [place] Urine Protein Urine Glucose (UA) Urine Ketones Urine Blood Urine Nitrite Urine Bilirubin Urine Urobilinogen Ur Leukocyte Esterase Urine WBC (Auto) Urine RBC (Auto) U Hyaline Cast (Auto) U Epithel Cells (Auto) Urine Bacteria (Auto) POC Ur Test NEG Salicylates Urine Opiates Screen Neg Ur Methadone, Qual Neg Acetaminophen Urine Barbiturates Neg Ur Phencyclidine (PCP) Neg U Amphetamin/Meth Scrn Neg MDMA (Ecstasy) Screen Neg U Benzodiazepines Scrn Neg Ur Cocaine Metabolite Neg U Marijuana (THC) Screen Neg Ethyl Alcohol mg/dL SARS-CoV-2 Ag (Rapid) 03/29/20 07:27 WBC RBC Hgb Hct MCV MCH MCHC RDW Std Deviation RDW Coeff of Portia Plt Count MPV Immature Gran % (Auto) Neut % (Auto) Lymph % (Auto) [place] % (Auto) Eos % (Auto) Baso % (Auto) Neut # (Auto) Lymph # (Auto) [place] # (Auto) Eos # (Auto) Baso # (Auto) Immature Gran # (Auto) Sodium Potassium Chloride Carbon Dioxide Anion Gap BUN Creatinine Est Cr Clr Drug Dosing Est GFR ( Amer) Est GFR (Non-Af Amer) BUN/Creatinine Ratio Glucose POC Glucose 85 Calcium Total Bilirubin AST ALT Alkaline Phosphatase Total Protein Albumin Globulin Albumin/Globulin Ratio TSH Urine Color Urine Appearance Urine pH Ur Specific [place] Urine Protein Urine Glucose (UA) Urine Ketones Urine Blood Urine Nitrite Urine Bilirubin Urine Urobilinogen Ur Leukocyte Esterase Urine WBC (Auto) Urine RBC (Auto) U Hyaline Cast (Auto) U Epithel Cells (Auto) Urine Bacteria (Auto) POC Ur Test Salicylates Urine Opiates Screen Ur Methadone, Qual Acetaminophen Urine Barbiturates Ur Phencyclidine (PCP) U Amphetamin/Meth Scrn MDMA (Ecstasy) Screen U Benzodiazepines Scrn Ur Cocaine Metabolite U Marijuana (THC) Screen Ethyl Alcohol mg/dL SARS-CoV-2 Ag (Rapid) Current Inpatient Medications Current Inpatient Medications: Current Inpatient Medications Acetaminophen (Acetaminophen 325 Mg Tab) 650 mg PO Q4H PRN PRN Reason: Headache or Minor Fever Stop: 04/28/20 01:08 Al Hydrox/Mg Hydrox/Simethicone (Aluminum/Magnesium Susp 30 Ml Udc) 30 ml PO Q4 H PRN PRN Reason: GI Upset Stop: 04/28/20 01:08 Aripiprazole (Aripiprazole 10 Mg Tab) 10 mg PO QAM LEIF Stop: 04/29/20 08:59 Aripiprazole (Aripiprazole 5 Mg Tab) 5 mg PO NOW ONE Stop: 03/29/20 15:05 Bismuth Subsalicylate (Bismuth Subsalicylate Liqd 236 Ml) 15 ml PO PRN PRN PRN Reason: Loose Stool Stop: 04/28/20 01:08 Haloperidol (Haloperidol 5 Mg Tab) 5 mg PO Q6 PRN PRN Reason: Agitation Stop: 04/28/20 05:59 Hydroxyzine HCl (Hydroxyzine Hcl 25 Mg Tab) 50 mg PO HSZ PRN PRN Reason: Insomnia Stop: 04/28/20 01:08 Last Admin: 03/29/20 02:11 Dose: 50 mg Documented by: Hydroxyzine HCl (Hydroxyzine Hcl 25 Mg Tab) 25 mg PO Q4H PRN PRN Reason: Anxiety Stop: 04/28/20 01:08 Insulin Glargine (Insulin Glargine Solostar 100 Units/Ml 3 Ml Pen) 28 units SQ HS LEIF Stop: 04/28/20 21:59 Lorazepam (Lorazepam 0.5 Mg Tab) 0.5 mg PO HS PRN PRN Reason: Sleep Stop: 04/28/20 14:59 Magnesium Hydroxide (Magnesium Hydroxide Susp 30 Ml Udc) 30 ml PO DAILY PRN PRN Reason: Constipation Stop: 04/28/20 01:08 Metformin HCl (Metformin Hcl 500 Mg Tab) 1,000 mg PO BIDM LEIF Stop: 04/28/20 17:44 Non-Formulary Medication (Imiquimod) 2 pkt PV .COMPLEX LEIF Stop: 04/29/20 14:59 Non-Formulary Medication (Butenafine) 1 appln TOP BID LEIF Stop: 04/28/20 20:59 Non-Formulary Medication (Ergocalciferol (Vitamin D2)) 50 mcg PO DAILY LEIF Stop: 04/29/20 08:59 Sodium Chloride (Sodium Chloride 0.65% Na Soln 45 Ml ([place])) 1 - 2 sprays NA PRN PRN PRN Reason: Nasal Dryness/Congestion Stop: 04/28/20 01:08 Trihexyphenidyl HCl (Trihexyphenidyl Hcl 2 Mg Tab) 5 mg PO BID LEIF Stop: 04/28/20 20:59
[2020-03-29] MEDS ORDERED: ARIPiprazole 5 MG TAB PO ONE (16:00)
[2020-03-29] MEDS: metFORMIN HCL 500 MG TAB PO SCH (16:58)
[2020-03-29] MEDS ORDERED: TRIHEXYPHENIDYL HCL 2 MG TAB PO STA ×2 (17:10→17:28)
[2020-03-29] MEDS ORDERED: PHARMACY GLYCEMIC MGMT CONSULT PRN (18:48)
[2020-03-29] MEDS ORDERED: GLUCAGON FOR INJ 1 MG VIAL IM PRN (20:30)
[2020-03-29] MEDS ORDERED: GLUCOSE 40% GEL 15 GM TUBE PO PRN (20:30)
[2020-03-29] MEDS ORDERED: GLUCOSE 10 TABS/TUBE PO PRN (20:30)
[2020-03-29] MEDS ORDERED: DEXTROSE 50% 50 ML SYRINGE IV PRN (20:30)
[2020-03-29] MEDS ORDERED: CARBOHYDRATES FOR HYPOGLYCEMIA PO PRN (20:30)
[2020-03-29] MEDS: TRIHEXYPHENIDYL HCL 5 MG TAB PO SCH (21:42)
[2020-03-29] MEDS: INSULIN ASPART 100 UNITS/ML 3 ML PEN SC SCH (21:53)
[2020-03-29] MEDS: INSULIN GLARGINE SOLOSTAR 100 UNITS/ML 3 ML PEN SQ SCH (21:56)
[2020-03-29] MEDS ORDERED: INSULIN GLARGINE SOLOSTAR 100 UNITS/ML 3 ML PEN SQ SCH (22:00)
--- NOTE | 2020-03-30 07:44 | Psychiatric Progress Note ---
Date of Service March 30, 2020 Impression / Recommendations Impression Admission Impression (03/29/2020) - This is a rather complex case that is known to the behavioral health unit from a previous admission in the summer 2019. She can become floridly psychotic, highly disturbed, extremely disorganized (both in terms of behavior and in terms of her thinking). She has periodically lapsed into what she refers to as her "alters," and during these periods claims to be various entities of both genders and of various ages. There is something of a "as if" quality when this occurs, and there is some element of attention seeking observed previously. The patient also can be quite uncooperative, disagreeable, or catatonic. She has a history of symptom abeyance, and it has never been entirely clear if the apparent symptom resolution is entirely attributable to medications and other forms of treatment. The patient, herself, says that she has never taken any psychiatric medication and she thinks has been particularly helpful, but does acknowledge that she had been doing fairly well while taking Invega Sustenna. She seems to have suddenly taken the flight into health following a night's sleep after being admitted. On evaluation today the patient says that she slept well because the staff gave her something for sleep last night and she slept fairly well. She also says that she feels that having an increase in the amount of human interaction has helped. Her alters from speaking and has brought her back to "being [herself]." There is a history of nonadherence with medications and it is generally agreed that the patient needs to take a long-acting depot injectable antipsychotic. Invega Sustenna was stopped because of prolactinemia. The plan had been to switch her to Abilify Maintena, after she had tolerated Abilify 5 mg orally for approximately a month. However, at the last minute the patient refused to take Abilify as an injectable and claimed that her "alter" Stiven had ordered her not to. Of concern is the fact that at the time of admission last evening the patient was reporting that she was experiencing a command hallucination that was telling her to kill herself by jumping or by drowning, and she acknowledges today that she has a remote history of a serious suicide attempt by jumping off of a bridge. Although today she is saying that her symptoms have essentially gone into remission, her pattern during previous admissions had included the waxing and waning of symptoms, and given the severity of the presenting symptoms at admission it is agreed that inpatient psychiatric hospitalization is the least intensive, least restrictive level of care consistent with the patient's safety and clinical needs. (1) Schizoaffective disorder: 03/29/20 -The patient has been admitted to the locked inpatient psychiatric unit at [facility] and has been put on suicide precautions for safety. When appropriate, the patient will be referred for group and activity therapies. We will also anticipate family interventions, as permitted by the patient. -Following her significantly disturbed presentation last evening, today the patient seems to have taken a "flight into health," and says that her presenting symptoms, including hearing the voices of her "alters" have all stopped. She says that without the voices of the altered she is not suicidal, and she also says that her mood is "okay." However, inpatient psychiatric hospitalization is the least intensive level of care consistent with the patient's safety and clinical needs, given her history of waxing and waning symptomatology is observed during previous contact with the patient. Accordingly, additional observation at the inpatient level of hospitalization is medically necessary. 03/30 - Titrating aripiprazole to 15mg qAM starting tomorrow morning. Pt continues to be resistant to considering Abilify Maintena despite previous conversations with her outpatient psychiatric prescriber. - Pt does not appear to be actively responding to internal stimuli and is denying hallucinations since admission - but she also seems to be minimizing symptoms and is seeming to demonstrate a 'flight into health' as stated above. - Will attempt to schedule support meeting - patient requesting involvement of sister and social work case manager, Mesha - Pt is becoming a bit more irritable, focused more on discharge due to concern for development of claustrophobia. (2) Diabetes mellitus type 2, uncontrolled: 03/29/20 -Patient's blood sugars will be monitored and we will continue the diabetic regimen that the patient has been following on an outpatient basis, with support and monitoring from nursing staff. -The patient's assertion is that she can independently follow her diabetic diet and medication regimen (including insulin) on her own, but acknowledges that sometimes her alters may interfere. Inventory Assets Strengths: Intelligent. Good social skills when stable. Some insight into her need to stay more connected with other people. Needs: History of florid psychosis, nonadherence, and limited cooperation with treatment. Risk Factors Assessment Male: No : No Do You Have Access To A Gun?: No Health Problems: Yes Mental Health Diagnoses: Yes Substance Use Disorders: No Previous Attempt: Yes Previous Attempt; Highly Lethal: Yes Previous Attempt; Planned: Yes Previous Attempt; Didn't Tell Anyone: Yes Family History of Suicide: No Previous Psychiatric Hospitalization: Yes Hopelessness: No Smoker: No Protective Factors Assessment Lutheran Beliefs: Yes ("Spiritual. Believe in a higher power. Raised Hoahaoism.") : No Responsible for Young Children: No Employed: No Stable Relationships: Yes Supportive Family: Yes Good Rapport with Provider: Yes Absence of Any Risk Factors Above: No Interval History Identifying Information ZAHIRA JOHNSON ("Yosef") is a 39-year-old F who currently lives in alone in [place]. She has a history of schizoaffective disorder bipolar type and was admitted on 03/29/20 00:10 on a 201 voluntary commitment for a report of command hallucinations that tell her to commit suicide, combined with a reported intent to follow the commands. Chief Complaint "The issue is they're not waking me up for groups. I don't want people to think I'm depressed, cause then you will make me stay here longer." Review of Systems Notes Constitutional: reports fatigue Cardiovascular: denied Respiratory: denied Gastrointestinal: denied Neurological: denied Psychiatric: denies symptoms other than stated above Total of at least 10 systems reviewed, pertinent positives as above and in HPI. Sleep Information Total Hours of Sleep: 9.25 Sleep Comments: admitted at 0039. Meal Information Percent Meal Consumed - Breakfast: 100 Percent Meal Consumed - Lunch: 100 Percent Meal Consumed - Dinner: 100 Subjective Subjective Patient was seen & assessed and interval progress reviewed with nursing and social work. Staff report the patient has been attending groups and seems to be participating appropriately. Pt was seen today to assess progress since admission. Pt begins our conversation rather sternly and states "the issue is they're not waking me up for groups. I don't want people to think I'm depressed, cause then you will make me stay here longer." The patient seemed to perseverate quite a bit on this idea, repeating herself several times despite this provider reassuring her that staff would be encouraged to ensure she was woken up for groups. Initially patient stated she has been sleeping more at home now that she is not employed, but later contradicts herself and states "I'm very busy. I get up around 8:00 each day, work out every other day, and spend my time researching my disease and reading up and educating myself on homelessness policies." Pt states that she has not heard "voices" since "before I even got up here." She denies SI. Pt continues to direct our conversation toward discharge, stating "If I stay here too long I will get claustrophobic, and that is a real thing. It happens to me and it is not good. I will need to not be here very long, I'm already feeling anxious." Treatment and discharge goals were clearly laid out for the patient, who verbalized understanding of need to secure outpatient appointments, monitor for stability on new medication, and schedule a support meeting. Pt is willing to have a meeting with her sister and social work case manager. Pt did agree to further titration of aripiprazole to 15mg qAM, but is still hesitant to switching to Abilify Maintena stating only "I would prefer the oral version. I'm not trying to get off of it, I know that's what you think. I don't like being in the hospital, so I'm not trying to stop it." Pt denied other needs or concerns at this time. Physical Exam Psychiatric Orientation: alert, oriented x 3 and + guarded (superficially cooperative ) Apperance: appropriately dressed, appropriately groomed and appeared stated age Eye Contact: + fair eye contact Motor Behavior: no abnormal motor movements (observed while laying in bed) Speech: normal rate/rhythm/volume of speech (somewhat irritable tone) Affect: + flat affect and + constricted affect (with an irritable edge) Mood: no depressed mood and no anxious mood "I'm fine, I don't want people to think I'm depressed." Thought Process: + tangential thought process and + perseveration (focused on discharge, avoiding feelings of claustrophobia) Thought Content: reality based without delusions; no hopelessness and no worthlessness Suicidal Thoughts: denies suicidal thoughts Homicidal Thoughts: denies homicidal thoughts Hallucinations: no auditory hallucinations (though unclear if her denial of "voices" is reliable) and no visual hallucinations Cognition: attention grossly intact and language grossly intact Insight: + impaired insight (seems to be minimizing) Judgement: + impaired judgement Vital Signs (Past 24 Hours) Last Vital Signs Temp 36.7 C 03/30/20 06:43 Pulse 76 03/30/20 06:44 Resp 16 03/30/20 06:43 BP 124/88 03/30/20 06:44 Pulse Ox 100 03/29/20 00:51 Results & Data ([facility]) Laboratory Results Laboratory Results - last 24 hr 03/29/20 03/29/20 17:06 21:47 POC Glucose 119 H 104 H Current Inpatient Medications Current Inpatient Medications: Current Inpatient Medications Acetaminophen (Acetaminophen 325 Mg Tab) 650 mg PO Q4H PRN PRN Reason: Headache or Minor Fever Stop: 04/28/20 01:08 Al Hydrox/Mg Hydrox/Simethicone (Aluminum/Magnesium Susp 30 Ml Udc) 30 ml PO Q4H PRN PRN Reason: GI Upset Stop: 04/28/20 01:08 Aripiprazole (Aripiprazole 10 Mg Tab) 10 mg PO QAM LEIF Stop: 04/29/20 08:59 Bismuth Subsalicylate (Bismuth Subsalicylate Liqd 236 Ml) 15 ml PO PRN PRN PRN Reason: Loose Stool Stop: 04/28/20 01:08 Dextrose (Dextrose 50% 50 Ml Syringe) 25 - 50 ml IV UD PRN; Protocol PRN Reason: Hypoglycemia Protocol Stop: 04/28/20 20:29 Glucagon (Glucagon For Inj 1 Mg Vial) 1 mg IM UD PRN; Protocol PRN Reason: Hypoglycemia Protocol Stop: 04/28/20 20:29 Glucose (Glucose 40% Gel 15 Gm Tube) 15 - 30 gm PO UD PRN; Protocol PRN Reason: Hypoglycemia Protocol Stop: 04/28/20 20:29 Glucose (Glucose 10 Tabs/Tube) 4 - 8 tabs PO UD PRN; Protocol PRN Reason: Hypoglycemia Protocol Stop: 04/28/20 20:29 Haloperidol (Haloperidol 5 Mg Tab) 5 mg PO Q6 PRN PRN Reason: Agitation Stop: 04/28/20 05:59 Hydroxyzine HCl (Hydroxyzine Hcl 25 Mg Tab) 50 mg PO HSZ PRN PRN Reason: Insomnia Stop: 04/28/20 01:08 Last Admin: 03/29/20 02:11 Dose: 50 mg Documented by: Hydroxyzine HCl (Hydroxyzine Hcl 25 Mg Tab) 25 mg PO Q4H PRN PRN Reason: Anxiety Stop: 04/28/20 01:08 Insulin Aspart (Insulin Aspart 100 Units/Ml 3 Ml Pen) 0 units SC ACHS LEIF Stop: 04/28/20 21:59 Last Admin: 03/29/20 21:53 Dose: 1 units Documented by: Insulin Glargine (Insulin Glargine Solostar 100 Units/Ml 3 Ml Pen) 20 units SQ HS LEIF Stop: 04/28/20 21:59 Last Admin: 03/29/20 21:56 Dose: 20 units Documented by: Lorazepam (Lorazepam 0.5 Mg Tab) 0.5 mg PO HS PRN PRN Reason: Sleep Stop: 04/28/20 14:59 Magnesium Hydroxide (Magnesium Hydroxide Susp 30 Ml Udc) 30 ml PO DAILY PRN PRN Reason: Constipation Stop: 04/28/20 01:08 Metformin HCl (Metformin Hcl 500 Mg Tab) 1,000 mg PO BIDM [facility] Stop: 04/28/20 17:44 Last Admin: 03/29/20 16:58 Dose: 1,000 mg Documented by: Miscellaneous (Imiquimod 5 % Cream In Packet- Order Awaiting Action) 1 ea N/A QS [facility] Stop: 04/29/20 15:59 Miscellaneous (Butenafine 1 % Cream- Order Awaiting Action) 1 ea N/A QS [facility] Stop: 04/28/20 15:59 Last Admin: 03/30/20 07:23 Dose: Not Given Documented by: Miscellaneous (Carbohydrates For Hypoglycemia ) 15 - 30 gm PO UD PRN PRN Reason: Hypoglycemia Treatment Stop: 04/28/20 20:29 Miscellaneous Information (Pharmacy Glycemic Mgmt Consult) 1 ea N/A UD PRN PRN Reason: Consult Stop: 04/28/20 18:47 Sodium Chloride (Sodium Chloride 0.65% Na Soln 45 Ml ([place])) 1 - 2 sprays NA PRN PRN PRN Reason: Nasal Dryness/Congestion Stop: 04/28/20 01:08 Trihexyphenidyl HCl (Trihexyphenidyl Hcl 5 Mg Tab) 5 mg PO BID LEIF Stop: 04/28/20 20:59 Last Admin: 03/29/20 21:42 Dose: 5 mg Documented by: Vitamin D (Cholecalciferol 1,000 Units 25 Mcg Tab) 2,000 units PO DAILY LEIF Stop: 04/29/20 08:59 Mental Health & Subst Abuse Tx Psychiatrist Name of Psychiatrist: Concepcion Vo Date of Appointment with Psychiatrist: 05/15/20 Time of Appointment with Psychiatrist: 11:00 Therapist Name of Therapist: Rico Britton Date of Therapist Appointment: 04/04/20 Time of Therapist Appointment: 9:00am Recycling Center Operator Name of Recycling Center Operator: Mesha LOYA Date of Appointment with Recycling Center Operator: 04/02/20 Time of Appointment with Recycling Center Operator: 3:30pm Post Discharge Appointments Primary Care Physician Name Of Family Doctor: Grisel Leon (1) Diabetes mellitus type 2, uncontrolled Glycemic state: with hyperglycemia Qualified Code(s): E11.65 - Type 2 diabetes mellitus with hyperglycemia (2) Schizoaffective disorder Schizoaffective disorder type: bipolar Qualified Code(s): F25.0 - Schizoaffective disorder, bipolar type
[2020-03-30] MEDS: metFORMIN HCL 500 MG TAB PO SCH ×2 (08:47→18:05)
[2020-03-30] MEDS: CHOLECALCIFEROL 1,000 UNITS 25 MCG TAB PO SCH (08:47)
[2020-03-30] MEDS: TRIHEXYPHENIDYL HCL 5 MG TAB PO SCH ×2 (08:47→21:12)
[2020-03-30] MEDS: INSULIN ASPART 100 UNITS/ML 3 ML PEN SC SCH ×4 (08:49→20:29)
[2020-03-30] MEDS ORDERED: ARIPiprazole 10 MG TAB PO SCH (09:00)
--- NOTE | 2020-03-30 10:44 | Pharmacy Report ---
Pharmacy Glycemic Short Note 2 - Date of Service March 30, 2020 - Glycemic Short BSG Results (Last 24 hours): 03/29/20 03/29/20 03/30/20 17:06 21:47 08:35 POC Glucose 119 H 104 H 164 H OUTPATIENT ANTIDIABETIC REGIMEN: * Lantus 28 units HS, metformin 1 gm bid * A1c of 6.1% 02/20/20 ASSESSMENT: * Patient admitted to [facility] for management of schizoaffective bipolar state. Pharmacy consulted to help with glycemic management * Fasting BSG 85 mg/dL yesterday AM, therefore evening home Lantus reduced last night by ~30% * Fasting this AM 164 mg/dL - plan to continue with same Lantus regimen for now, started on CF/CR PLAN FOR INPATIENT GLYCEMIC CONTROL: * Resumed home metformin 1000 mg bidm * Basal insulin * Lantus 20 units HS * Bolus insulin * NovoLog per scale ACHS or Q6hrs while NPO * Goal Range: Low 120 mg/dL - High 150 mg/dL * Correction Factor: 30 mg/dL/unit * Nutritional / Prandial insulin per carb ratio of 1 unit per 10 grams CHO consumed PLAN FOR DISCHARGE: * A1c 6.1% 02/20/20 - reasonable goal <7% * Would recommend continuation of home insulin regimen/metformin on discharge as long as no contraindications exist
--- NOTE | 2020-03-30 10:48 | Communication Note ---
Date of Service: March 30, 2020 Summary of Outpatient Records from [facility] - Psychiatry Diagnosis: - Schizoaffective disorder, bipolar type. Medications: - Abilify 5mg qAM - Lorazepam 0.5mg - 2 tabs PO qHS with additional 1 tab available once daily as needed for anxiety - Invega Sustenna 234mg IM received on 03/04/20 - Plan to transition to Abilify Maintena 400mg IM for next injection appointment (scheduled for 04/01/2020) 03/28 - Triage Notes - Pt sent numerous triage notes to her psychiatric prescriber to cancel her injection appointment, because her alternate personality did not want her to take the injection. Pt did agree to continuing the oral medication. Pt then stated the voices are telling her to kill herself. Pt was talking with mobile clothing worker at next encounter and did agree to present to the ED for inpatient admission. 03/21/20 - Rico Britton LCSW - Therapy Appointment - Pt reported she has been depressed for the past month. Pt reported feeling she has "lost years of my life and lost my earning potential". Pt denied SI/HI. Alter-ego "Stiven" has been more kind to her. She also reported another persona "Jocelynn", a [id number] [place] girl, causing her to behave in a "childlike" manner. 03/04/20 - Concepcion Vo PA-C - Medication Management - Pt presented for injection appointment for Invega Sustenna 234mg IM - as well as medication check. 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 Stating she is worried about continuing Invega Sustenna and wanted to discuss other options. Mood has reportedly been "manic" with patient sending frequent emails to her provider. Pt denied SI/HI. - Abilify added to current regimen at 5mg with thoughts to switch to Abilify Maintena 400mg IM at next appointment.
[2020-03-30] MEDS: INSULIN GLARGINE SOLOSTAR 100 UNITS/ML 3 ML PEN SQ SCH (21:12)
[2020-03-30] MEDS: LORazepam 0.5 MG TAB PO PRN (21:23)
--- NOTE | 2020-03-31 07:50 | Psychiatric Progress Note ---
Date of Service March 31, 2020 Impression / Recommendations Impression Admission Impression (03/29/2020) - This is a rather complex case that is known to the behavioral health unit from a previous admission in the summer 2019. She can become floridly psychotic, highly disturbed, extremely disorganized (both in terms of behavior and in terms of her thinking). She has periodically lapsed into what she refers to as her "alters," and during these periods claims to be various entities of both genders and of various ages. There is something of a "as if" quality when this occurs, and there is some element of attention seeking observed previously. The patient also can be quite uncooperative, disagreeable, or catatonic. She has a history of symptom abeyance, and it has never been entirely clear if the apparent symptom resolution is entirely attributable to medications and other forms of treatment. The patient, herself, says that she has never taken any psychiatric medication and she thinks has been particularly helpful, but does acknowledge that she had been doing fairly well while taking Invega Sustenna. She seems to have suddenly taken the flight into health following a night's sleep after being admitted. On evaluation today the patient says that she slept well because the staff gave her something for sleep last night and she slept fairly well. She also says that she feels that having an increase in the amount of human interaction has helped. Her alters from speaking and has brought her back to "being [herself]." There is a history of nonadherence with medications and it is generally agreed that the patient needs to take a long-acting depot injectable antipsychotic. Invega Sustenna was stopped because of prolactinemia. The plan had been to switch her to Abilify Maintena, after she had tolerated Abilify 5 mg orally for approximately a month. However, at the last minute the patient refused to take Abilify as an injectable and claimed that her "alter" Stiven had ordered her not to. Of concern is the fact that at the time of admission last evening the patient was reporting that she was experiencing a command hallucination that was telling her to kill herself by jumping or by drowning, and she acknowledges today that she has a remote history of a serious suicide attempt by jumping off of a bridge. Although today she is saying that her symptoms have essentially gone into remission, her pattern during previous admissions had included the waxing and waning of symptoms, and given the severity of the presenting symptoms at admission it is agreed that inpatient psychiatric hospitalization is the least intensive, least restrictive level of care consistent with the patient's safety and clinical needs. (1) Schizoaffective disorder: 03/29/20 -The patient has been admitted to the locked inpatient psychiatric unit at [facility] and has been put on suicide precautions for safety. When appropriate, the patient will be referred for group and activity therapies. We will also anticipate family interventions, as permitted by the patient. -Following her significantly disturbed presentation last evening, today the patient seems to have taken a "flight into health," and says that her presenting symptoms, including hearing the voices of her "alters" have all stopped. She says that without the voices of the altered she is not suicidal, and she also says that her mood is "okay." However, inpatient psychiatric hospitalization is the least intensive level of care consistent with the patient's safety and clinical needs, given her history of waxing and waning symptomatology is observed during previous contact with the patient. Accordingly, additional observation at the inpatient level of hospitalization is medically necessary. 03/30 - Titrating aripiprazole to 15mg qAM starting tomorrow morning. Pt continues to be resistant to considering [place] despite previous conversations with her outpatient psychiatric prescriber. - Pt does not appear to be actively responding to internal stimuli and is denying hallucinations since admission - but she also seems to be minimizing symptoms and is seeming to demonstrate a 'flight into health' as stated above. - Will attempt to schedule support meeting - patient requesting involvement of sister and manager of case managementMesha - Pt is becoming a bit more irritable, focused more on discharge due to concern for development of claustrophobia. 03/31 - Pt agreed to titration of aripiprazole to 20mg starting tomorrow morning. Pt continues to deny side effects and perceived akathisia (has been reported with previous antipsychotic medications) - Pt continues to deny hallucinations, but has been irritable and verbalizing excuses to try to not attend group programming. - Attempts are being made to try to schedule a meeting with the patient's sister and manager of case management early this coming week. (2) Diabetes mellitus type 2, uncontrolled: 03/29/20 -Patient's blood sugars will be monitored and we will continue the diabetic regimen that the patient has been following on an outpatient basis, with support and monitoring from nursing staff. -The patient's assertion is that she can independently follow her diabetic diet and medication regimen (including insulin) on her own, but acknowledges that sometimes her alters may interfere. Inventory Assets Strengths: Intelligent. Good social skills when stable. Some insight into her need to stay more connected with other people. Needs: History of florid psychosis, nonadherence, and limited cooperation with treatment. Risk Factors Assessment Male: No : No Do You Have Access To A Gun?: No Health Problems: Yes Mental Health Diagnoses: Yes Substance Use Disorders: No Previous Attempt: Yes Previous Attempt; Highly Lethal: Yes Previous Attempt; Planned: Yes Previous Attempt; Didn't Tell Anyone: Yes Family History of Suicide: No Previous Psychiatric Hospitalization: Yes Hopelessness: No Smoker: No Protective Factors Assessment Episcopal Beliefs: Yes ("Spiritual. Believe in a higher power. Raised Nondenominational.") : No Responsible for Young Children: No Employed: No Stable Relationships: Yes Supportive Family: Yes Good Rapport with Provider: Yes Absence of Any Risk Factors Above: No Interval History Identifying Information ZAHIRA JOHNSON ("Yosef") is a 39-year-old F who currently lives in alone in [place]. She has a history of schizoaffective disorder bipolar type and was admitted on 03/29/20 00:10 on a 201 voluntary commitment for a report of command hallucinations that tell her to commit suicide, combined with a reported intent to follow the commands. Chief Complaint "So, I realized after talking on the phone with my sister that groups trigger my PTSD." Review of Systems Notes Constitutional: denied Cardiovascular: denied Respiratory: denied Gastrointestinal: denied Neurological: denied Psychiatric: denies symptoms other than stated above Total of at least 10 systems reviewed, pertinent positives as above and in HPI. Sleep Information Total Hours of Sleep: 6.5 Sleep Comments: . Meal Information Percent Meal Consumed - Breakfast: 100 Percent Meal Consumed - Lunch: 100 Percent Meal Consumed - Dinner: 100 Subjective Subjective Patient was seen & assessed and interval progress reviewed with nursing and social work. Staff report the patient participated in some groups earlier in the morning, but then returned to isolating in her room and only limited engagement with staff. The patient begins our conversation by telling this provider that she believes she has PTSD from her hospitalizations, specifically as it relates to group programming. Pt states she spoke with her sister about this and "realized that's what it was, so I really don't want to go to groups anymore. But I also don't want you guys to think I'm depressed or sleeping all day." This provider offered reassurance and attempted to illicit more information regarding these concerns. It appears from speaking with the patient further that her concerns are less related to true PTSD pathology but instead to a desire to avoid having to participate in groups. Pt states "you guys are trying to change my personality, but I'm just not an outgoing person, I just don't like to talk a lot." Pt was encouraged to still be present during group programming in order to absorb the information, but it was suggested that she could take notes to gather her thoughts and discuss one-on-one with counselors later. Pt was informed of this provider's concern that not attend groups would lead to isolation and that patient would be missing important information that would be beneficial for her recovery. Pt was offered to maintain current dose of aripiprazole 15mg or continue titration to 20mg starting tomorrow. Pt states she has not had any side effects to the medication thus far and verbalizes a preference to continue titration. Pt denied other needs or concerns today. Physical Exam Psychiatric Orientation: alert, oriented x 3 and + guarded (superficially cooperative ) Apperance: appropriately dressed, + disheveled (appearing somewhat unkempt, awoken from sleep) and appeared stated age Eye Contact: good eye contact (though with prolonged staring/glaring) Motor Behavior: no abnormal motor movements (observed while laying in bed) Speech: normal rate/rhythm/volume of speech (irritable tone) Affect: + irritable affect Mood: no depressed mood ("I don't want you guys thinking I'm depressed.") Thought Process: goal directed thought process and + perseveration (on discharge and group programming) Thought Content: + preoccupation (with anxiety and desire to not attend group programming) and + cognitive distortions Suicidal Thoughts: denies suicidal thoughts and denies suicidal intent Homicidal Thoughts: denies homicidal thoughts Hallucinations: no auditory hallucinations and no visual hallucinations Cognition: attention grossly intact and language grossly intact Estimated Intelligence: consistent with education level Insight: + limited insight Judgement: + fair judgement Vital Signs (Past 24 Hours) Last Vital Signs Temp 37.1 C 03/31/20 06:55 Pulse 101 H 03/31/20 06:56 Resp 16 03/31/20 06:55 BP 124/76 03/31/20 06:56 Pulse Ox 100 03/29/20 00:51 Results & Data ([facility]) Laboratory Results Laboratory Results - last 24 hr 03/30/20 03/30/20 03/30/20 08:35 12:50 16:26 POC Glucose 164 H 69 L* 93 03/30/20 20:27 POC Glucose 140 H Current Inpatient Medications Current Inpatient Medications: Current Inpatient Medications Acetaminophen (Acetaminophen 325 Mg Tab) 650 mg PO Q4H PRN PRN Reason: Headache or Minor Fever Stop: 04/28/20 01:08 Al Hydrox/Mg Hydrox/Simethicone (Aluminum/Magnesium Susp 30 Ml Udc) 30 ml PO Q4H PRN PRN Reason: GI Upset Stop: 04/28/20 01:08 Aripiprazole (Aripiprazole 15 Mg Tab) 15 mg PO QAM LEIF Stop: 04/30/20 08:59 Bismuth Subsalicylate (Bismuth Subsalicylate Liqd 236 Ml) 15 ml PO PRN PRN PRN Reason: Loose Stool Stop: 04/28/20 01:08 Dextrose (Dextrose 50% 50 Ml Syringe) 25 - 50 ml IV UD PRN; Protocol PRN Reason: Hypoglycemia Protocol Stop: 04/28/20 20:29 Glucagon (Glucagon For Inj 1 Mg Vial) 1 mg IM UD PRN; Protocol PRN Reason: Hypoglycemia Protocol Stop: 04/28/20 20:29 Glucose (Glucose 40% Gel 15 Gm Tube) 15 - 30 gm PO UD PRN; Protocol PRN Reason: Hypoglycemia Protocol Stop: 04/28/20 20:29 Glucose (Glucose 10 Tabs/Tube) 4 - 8 tabs PO UD PRN; Protocol PRN Reason: Hypoglycemia Protocol Stop: 04/28/20 20:29 Haloperidol (Haloperidol 5 Mg Tab) 5 mg PO Q6 PRN PRN Reason: Agitation Stop: 04/28/20 05:59 Hydroxyzine HCl (Hydroxyzine Hcl 25 Mg Tab) 50 mg PO HSZ PRN PRN Reason: Insomnia Stop: 04/28/20 01:08 Last Admin: 03/29/20 02:11 Dose: 50 mg Documented by: Hydroxyzine HCl (Hydroxyzine Hcl 25 Mg Tab) 25 mg PO Q4H PRN PRN Reason: Anxiety Stop: 04/28/20 01:08 Last Admin: 03/31/20 03:23 Dose: 25 mg Documented by: Insulin Aspart (Insulin Aspart 100 Units/Ml 3 Ml Pen) 0 units SC ACHS LEIF Stop: 04/28/20 21:59 Last Admin: 03/30/20 20:29 Dose: Not Given Documented by: Insulin Glargine (Insulin Glargine Solostar 100 Units/Ml 3 Ml Pen) 20 units SQ HS LEIF Stop: 04/28/20 21:59 Last Admin: 03/30/20 21:12 Dose: 20 units Documented by: Lorazepam (Lorazepam 0.5 Mg Tab) 0.5 mg PO HS PRN PRN Reason: Sleep Stop: 04/28/20 14:59 Last Admin: 03/30/20 21:23 Dose: 0.5 mg Documented by: Magnesium Hydroxide (Magnesium Hydroxide Susp 30 Ml Udc) 30 ml PO DAILY PRN PRN Reason: Constipation Stop: 04/28/20 01:08 Metformin HCl (Metformin Hcl 500 Mg Tab) 1,000 mg PO BIDM LEIF Stop: 04/28/20 17:44 Last Admin: 03/30/20 18:05 Dose: 1,000 mg Documented by: Miscellaneous (Imiquimod 5 % Cream In Packet- Order Awaiting Action) 1 ea N/A QS [facility] Stop: 04/29/20 15:59 Last Admin: 03/31/20 04:47 Dose: Not Given Documented by: Miscellaneous (Butenafine 1 % Cream- Order Awaiting Action) 1 ea N/A QS LEIF Stop: 04/28/20 15:59 Last Admin: 03/30/20 23:54 Dose: Not Given Documented by: Miscellaneous (Carbohydrates For Hypoglycemia ) 15 - 30 gm PO UD PRN PRN Reason: Hypoglycemia Treatment Stop: 04/28/20 20:29 Miscellaneous Information (Pharmacy Glycemic Mgmt Consult) 1 ea N/A UD PRN PRN Reason: Consult Stop: 04/28/20 18:47 Sodium Chloride (Sodium Chloride 0.65% Na Soln 45 Ml ([place])) 1 - 2 sprays NA PRN PRN PRN Reason: Nasal Dryness/Congestion Stop: 04/28/20 01:08 Trihexyphenidyl HCl (Trihexyphenidyl Hcl 5 Mg Tab) 5 mg PO BID LEIF Stop: 04/28/20 20:59 Last Admin: 03/30/20 21:12 Dose: 5 mg Documented by: Vitamin D (Cholecalciferol 1,000 Units 25 Mcg Tab) 2,000 units PO DAILY LEIF Stop: 04/29/20 08:59 Last Admin: 03/30/20 08:47 Dose: 2,000 units Documented by: Mental Health & Subst Abuse Tx Psychiatrist Name of Psychiatrist: Concepcion Vo Date of Appointment with Psychiatrist: 05/15/20 Time of Appointment with Psychiatrist: 11:00 Therapist Name of Therapist: Rico Britton Date of Therapist Appointment: 04/04/20 Time of Therapist Appointment: 9:00am Progress Man Name of Progress Man: Mesha LOYA Date of Appointment with Progress Man: 04/02/20 Time of Appointment with Progress Man: 3:30pm Post Discharge Appointments Primary Care Physician Name Of Family Doctor: Grisel Leon (1) Diabetes mellitus type 2, uncontrolled Glycemic state: with hyperglycemia Qualified Code(s): E11.65 - Type 2 diabetes mellitus with hyperglycemia (2) Schizoaffective disorder Schizoaffective disorder type: bipolar Qualified Code(s): F25.0 - Schizoaffective disorder, bipolar type
[2020-03-31] MEDS: CHOLECALCIFEROL 1,000 UNITS 25 MCG TAB PO SCH (08:41)
[2020-03-31] MEDS: TRIHEXYPHENIDYL HCL 5 MG TAB PO SCH ×2 (08:41→20:09)
[2020-03-31] MEDS: metFORMIN HCL 500 MG TAB PO SCH ×2 (08:41→17:09)
[2020-03-31] MEDS: INSULIN ASPART 100 UNITS/ML 3 ML PEN SC SCH ×4 (08:49→20:13)
[2020-03-31] MEDS ORDERED: ARIPiprazole 15 MG TAB PO SCH (09:00)
[2020-03-31] MEDS: INSULIN GLARGINE SOLOSTAR 100 UNITS/ML 3 ML PEN SQ SCH (21:01)
[2020-03-31] MEDS: LORazepam 0.5 MG TAB PO PRN (21:06)
[2020-04-01] MEDS: ARIPiprazole 10 MG TAB PO SCH (08:37)
[2020-04-01] MEDS: CHOLECALCIFEROL 1,000 UNITS 25 MCG TAB PO SCH (08:38)
[2020-04-01] MEDS: TRIHEXYPHENIDYL HCL 5 MG TAB PO SCH ×2 (08:38→20:36)
[2020-04-01] MEDS: metFORMIN HCL 500 MG TAB PO SCH ×2 (08:38→17:07)
[2020-04-01] MEDS: INSULIN ASPART 100 UNITS/ML 3 ML PEN SC SCH ×4 (08:53→21:41)
--- NOTE | 2020-04-01 10:07 | Pharmacy Report ---
Pharmacy Glycemic Short Note 2 - Date of Service April 01, 2020 - Glycemic Short BSG Results (Last 24 hours): 03/31/20 03/31/20 03/31/20 12:34 16:15 20:12 POC Glucose 80 101 H 102 H 04/01/20 08:22 POC Glucose 119 H OUTPATIENT ANTIDIABETIC REGIMEN: * Lantus 28 units HS, metformin 1 gm bid * A1c of 6.1% 02/20/20 ASSESSMENT: 04/01: * Patient received 15 units of lantus last PM, receiving metformin 1000 mg BIDM, currently with no carb coverage * BSGs in past 24 hours [phone] mg/dL * Fasting this AM 119 mg/dL, will continue current reduced lantus dose, monitor for fasting trend 03/30 * Patient admitted to [facility] for management of schizoaffective bipolar state. Pharmacy consulted to help with glycemic management * Fasting BSG 85 mg/dL yesterday AM, therefore evening home Lantus reduced last night by ~30% * Fasting this AM 164 mg/dL - plan to continue with same Lantus regimen for now, started on CF/CR PLAN FOR INPATIENT GLYCEMIC CONTROL: * Continue metformin 1000 mg bidm * Basal insulin * Lantus 15 units HS * Bolus insulin * NovoLog per scale ACHS or Q6hrs while NPO * Goal Range: Low 120 mg/dL - High 150 mg/dL * Correction Factor: 30 mg/dL/unit PLAN FOR DISCHARGE: * A1c 6.1% 02/20/20 - reasonable goal <7% * Would recommend continuation of home insulin regimen/metformin on discharge as long as no contraindications exist
--- NOTE | 2020-04-01 10:47 | Psychiatric Progress Note ---
Date of Service April 01, 2020 Impression / Recommendations Impression Admission Impression (03/29/2020) - This is a rather complex case that is known to the behavioral health unit from a previous admission in the summer 2019. She can become floridly psychotic, highly disturbed, extremely disorganized (both in terms of behavior and in terms of her thinking). She has periodically lapsed into what she refers to as her "alters," and during these periods claims to be various entities of both genders and of various ages. There is something of a "as if" quality when this occurs, and there is some element of attention seeking observed previously. The patient also can be quite uncooperative, disagreeable, or catatonic. She has a history of symptom abeyance, and it has never been entirely clear if the apparent symptom resolution is entirely attributable to medications and other forms of treatment. The patient, herself, says that she has never taken any psychiatric medication and she thinks has been particularly helpful, but does acknowledge that she had been doing fairly well while taking Invega Sustenna. She seems to have suddenly taken the flight into health following a night's sleep after being admitted. On evaluation today the patient says that she slept well because the staff gave her something for sleep last night and she slept fairly well. She also says that she feels that having an increase in the amount of human interaction has helped. Her alters from speaking and has brought her back to "being [herself]." There is a history of nonadherence with medications and it is generally agreed that the patient needs to take a long-acting depot injectable antipsychotic. Invega Sustenna was stopped because of prolactinemia. The plan had been to switch her to Abilify Maintena, after she had tolerated Abilify 5 mg orally for approximately a month. However, at the last minute the patient refused to take Abilify as an injectable and claimed that her "alter" Stiven had ordered her not to. Of concern is the fact that at the time of admission last evening the patient was reporting that she was experiencing a command hallucination that was telling her to kill herself by jumping or by drowning, and she acknowledges today that she has a remote history of a serious suicide attempt by jumping off of a bridge. Although today she is saying that her symptoms have essentially gone into remission, her pattern during previous admissions had included the waxing and waning of symptoms, and given the severity of the presenting symptoms at admission it is agreed that inpatient psychiatric hospitalization is the least intensive, least restrictive level of care consistent with the patient's safety and clinical needs. (1) Schizoaffective disorder: 03/29/20 -The patient has been admitted to the locked inpatient psychiatric unit at [facility] and has been put on suicide precautions for safety. When appropriate, the patient will be referred for group and activity therapies. We will also anticipate family interventions, as permitted by the patient. -Following her significantly disturbed presentation last evening, today the patient seems to have taken a "flight into health," and says that her presenting symptoms, including hearing the voices of her "alters" have all stopped. She says that without the voices of the altered she is not suicidal, and she also says that her mood is "okay." However, inpatient psychiatric hospitalization is the least intensive level of care consistent with the patient's safety and clinical needs, given her history of waxing and waning symptomatology is observed during previous contact with the patient. Accordingly, additional observation at the inpatient level of hospitalization is medically necessary. 03/30 - Titrating aripiprazole to 15mg qAM starting tomorrow morning. Pt continues to be resistant to considering [place]on despite previous conversations with her outpatient psychiatric prescriber. - Pt does not appear to be actively responding to internal stimuli and is denying hallucinations since admission - but she also seems to be minimizing symptoms and is seeming to demonstrate a 'flight into health' as stated above. - Will attempt to schedule support meeting - patient requesting involvement of sister and nurse outreach case managerMesha - Pt is becoming a bit more irritable, focused more on discharge due to concern for development of claustrophobia. 03/31 - Pt agreed to titration of aripiprazole to 20mg starting tomorrow morning. Pt continues to deny side effects and perceived akathisia (has been reported with previous antipsychotic medications) - Pt continues to deny hallucinations, but has been irritable and verbalizing excuses to try to not attend group programming. - Attempts are being made to try to schedule a meeting with the patient's sister and nurse outreach case manager early this coming week. 04/01 - Continue aripiprazole 20mg qAM - consider need for further titration. Presently, patient continues to deny auditory hallucinations and is not verbalizing delusional thoughts/paranoia. - Support meeting scheduled for tomorrow with sister and possibly nurse outreach case manager - Reached out to her outpatient psychiatric prescriber with hopes to review progress and coordinate care (2) Diabetes mellitus type 2, uncontrolled: 03/29/20 -Patient's blood sugars will be monitored and we will continue the diabetic regimen that the patient has been following on an outpatient basis, with support and monitoring from nursing staff. -The patient's assertion is that she can independently follow her diabetic diet and medication regimen (including insulin) on her own, but acknowledges that sometimes her alters may interfere. Inventory Assets Strengths: Intelligent. Good social skills when stable. Some insight into her need to stay more connected with other people. Needs: History of florid psychosis, nonadherence, and limited cooperation with treatment. Risk Factors Assessment Male: No : No Do You Have Access To A Gun?: No Health Problems: Yes Mental Health Diagnoses: Yes Substance Use Disorders: No Previous Attempt: Yes Previous Attempt; Highly Lethal: Yes Previous Attempt; Planned: Yes Previous Attempt; Didn't Tell Anyone: Yes Family History of Suicide: No Previous Psychiatric Hospitalization: Yes Hopelessness: No Smoker: No Protective Factors Assessment Pentecostal Beliefs: Yes ("Spiritual. Believe in a higher power. Raised Islam.") : No Responsible for Young Children: No Employed: No Stable Relationships: Yes Supportive Family: Yes Good Rapport with Provider: Yes Absence of Any Risk Factors Above: No Interval History Identifying Information ZAHIRA JOHNSON ("Yosef") is a 39-year-old F who currently lives in alone in [place]. She has a history of schizoaffective disorder bipolar type and was admitted on 03/29/20 00:10 on a 201 voluntary commitment for a report of command hallucinations that tell her to commit suicide, combined with a reported intent to follow the commands. Chief Complaint "Um, I've been doing ok." Review of Systems Notes Constitutional: denied Cardiovascular: denied Respiratory: denied Gastrointestinal: denied Neurological: denied Psychiatric: denies symptoms other than stated above Total of at least 10 systems reviewed, pertinent positives as above and in HPI. Sleep Information Total Hours of Sleep: 7 Sleep Comments: . Meal Information Percent Meal Consumed - Breakfast: 100 Percent Meal Consumed - Lunch: 100 Percent Meal Consumed - Dinner: 25 Subjective Subjective Patient was seen & assessed and interval progress reviewed with treatment team. Staff report the patient has been attending parts of groups, but has been isolative for the most part. She is scheduled to have a meeting tomorrow morning with her sister, and possibly with her nurse outreach case manager. Pt was seen today to assess progress since admission. Pt was laying in bed, but did not appear to be sleeping. She shared that she is "doing ok." Pt denied side effects with increased dose of aripiprazole this morning. She was again offered to consider the ODELL, and did participate in a reasonable discussion regarding the benefits of Kassandra. Ultimately, the patient is still not willing for Abilynn Newtena, but did suggest she would consider speaking with her outpatient provider about the option down the road if desired. Pt did seem to understand the numerous benefits of Kassandra, but stated "I think it's worth trying the oral first to make sure that I tolerate it before I commit to more injectables." This led to a conversation in which patient expressed her frustration with side effects of antipsychotic medications and this being the reason she often distrusts healthcare professionals. Pt states "no one told me the side effects 12 years ago when they started these medications and now I have diabetes and have gained 60 pounds." We reviewed the benefits of aripiprazole with regard to somewhat reduced risk of these concerns. Pt continues to deny auditory hallucinations and does not verbalize any delusional thought content. She states she has been keeping her sister up to date on her progress and is not anxious about the meeting tomorrow. Pt continues to report her discomfort with group programming, but was encouraged to continue to attend as many as possible. Pt did not seem to be frustrated by her anticipated length of stay reviewed from treatment team. She denied other needs or concerns today. Physical Exam Psychiatric Orientation: alert, oriented x 3 and cooperative (at least superficially, but is mildly guarded) Apperance: appropriately dressed, appropriately groomed and appeared stated age Motor Behavior: no abnormal motor movements (observed while laying in bed) Speech: normal rate/rhythm/volume of speech (irritable tone at times) Affect: + flat affect Mood: no depressed mood and no anxious mood "I'm fine" Thought Process: goal directed thought process and clear/coherent thought proc ess Thought Content: reality based without delusions; no hopelessness and no worthlessness Suicidal Thoughts: denies suicidal thoughts Homicidal Thoughts: denies homicidal thoughts Hallucinations: no auditory hallucinations and no visual hallucinations Cognition: attention grossly intact and language grossly intact Insight: + fair insight Judgement: + fair judgement Vital Signs (Past 24 Hours) Last Vital Signs Temp 36.6 C 04/01/20 06:39 Pulse 76 04/01/20 06:40 Resp 16 04/01/20 06:39 BP 136/93 04/01/20 06:40 Pulse Ox 100 03/29/20 00:51 Results & Data ([facility]) Laboratory Results Laboratory Results - last 24 hr 03/31/20 03/31/20 03/31/20 12:34 16:15 20:12 POC Glucose 80 101 H 102 H 04/01/20 08:22 POC Glucose 119 H Current Inpatient Medications Current Inpatient Medications: Current Inpatient Medications Acetaminophen (Acetaminophen 325 Mg Tab) 650 mg PO Q4H PRN PRN Reason: Headache or Minor Fever Stop: 04/28/20 01:08 Al Hydrox/Mg Hydrox/Simethicone (Aluminum/Magnesium Susp 30 Ml Udc) 30 ml PO Q4H PRN PRN Reason: GI Upset Stop: 04/28/20 01:08 Aripiprazole (Aripiprazole 10 Mg Tab) 20 mg PO QAM LEIF Stop: 05/01/20 08:59 Last Admin: 04/01/20 08:37 Dose: 20 mg Documented by: Bismuth Subsalicylate (Bismuth Subsalicylate Liqd 236 Ml) 15 ml PO PRN PRN PRN Reason: Loose Stool Stop: 04/28/20 01:08 Dextrose (Dextrose 50% 50 Ml Syringe) 25 - 50 ml IV UD PRN; Protocol PRN Reason: Hypoglycemia Protocol Stop: 04/28/20 20:29 Glucagon (Glucagon For Inj 1 Mg Vial) 1 mg IM UD PRN; Protocol PRN Reason: Hypoglycemia Protocol Stop: 04/28/20 20:29 Glucose (Glucose 40% Gel 15 Gm Tube) 15 - 30 gm PO UD PRN; Protocol PRN Reason: Hypoglycemia Protocol Stop: 04/28/20 20:29 Glucose (Glucose 10 Tabs/Tube) 4 - 8 tabs PO UD PRN; Protocol PRN Reason: Hypoglycemia Protocol Stop: 04/28/20 20:29 Haloperidol (Haloperidol 5 Mg Tab) 5 mg PO Q6 PRN PRN Reason: Agitation Stop: 04/28/20 05:59 Hydroxyzine HCl (Hydroxyzine Hcl 25 Mg Tab) 50 mg PO HSZ PRN PRN Reason: Insomnia Stop: 04/28/20 01:08 Last Admin: 03/29/20 02:11 Dose: 50 mg Documented by: Hydroxyzine HCl (Hydroxyzine Hcl 25 Mg Tab) 25 mg PO Q4H PRN PRN Reason: Anxiety Stop: 04/28/20 01:08 Last Admin: 03/31/20 03:23 Dose: 25 mg Documented by: Insulin Aspart (Insulin Aspart 100 Units/Ml 3 Ml Pen) 0 units SC ACHS LEIF Stop: 04/28/20 21:59 Last Admin: 04/01/20 08:53 Dose: Not Given Documented by: Insulin Glargine (Insulin Glargine Solostar 100 Units/Ml 3 Ml Pen) 15 units SQ HS LEIF Stop: 04/30/20 21:59 Last Admin: 03/31/20 21:01 Dose: 15 units Documented by: Lorazepam (Lorazepam 0.5 Mg Tab) 0.5 mg PO HS PRN PRN Reason: Sleep Stop: 04/28/20 14:59 Last Admin: 03/31/20 21:06 Dose: 0.5 mg Documented by: Magnesium Hydroxide (Magnesium Hydroxide Susp 30 Ml Udc) 30 ml PO DAILY PRN PRN Reason: Constipation Stop: 04/28/20 01:08 Metformin HCl (Metformin Hcl 500 Mg Tab) 1,000 mg PO BIDM LEIF Stop: 04/28/20 17:44 Last Admin: 04/01/20 08:38 Dose: 1,000 mg Documented by: Miscellaneous (Imiquimod 5 % Cream In Packet- Order Awaiting Action) 1 ea N/A QS LEIF Stop: 04/29/20 15:59 Last Admin: 03/31/20 17:00 Dose: Not Given Documented by: Miscellaneous (Butenafine 1 % Cream- Order Awaiting Action) 1 ea N/A QS LEIF Stop: 04/28/20 15:59 Last Admin: 03/31/20 16:59 Dose: Not Given Documented by: Miscellaneous (Carbohydrates For Hypoglycemia ) 15 - 30 gm PO UD PRN PRN Reason: Hypoglycemia Treatment Stop: 04/28/20 20:29 Miscellaneous Information (Pharmacy Glycemic Mgmt Consult) 1 ea N/A UD PRN PRN Reason: Consult Stop: 04/28/20 18:47 Sodium Chloride (Sodium Chloride 0.65% Na Soln 45 Ml ([place])) 1 - 2 sprays NA PRN PRN PRN Reason: Nasal Dryness/Congestion Stop: 04/28/20 01:08 Trihexyphenidyl HCl (Trihexyphenidyl Hcl 5 Mg Tab) 5 mg PO BID LEIF Stop: 04/28/20 20:59 Last Admin: 04/01/20 08:38 Dose: 5 mg Documented by: Vitamin D (Cholecalciferol 1,000 Units 25 Mcg Tab) 2,000 units PO DAILY LEIF Stop: 04/29/20 08:59 Last Admin: 04/01/20 08:38 Dose: 2,000 units Documented by: Mental Health & Subst Abuse Tx Psychiatrist Name of Psychiatrist: Concepcion Vo Date of Appointment with Psychiatrist: 05/15/20 Time of Appointment with Psychiatrist: 11:00 Therapist Name of Therapist: Rico Britton Date of Therapist Appointment: 04/04/20 Time of Therapist Appointment: 9:00am Administrative Supervisor Name of Administrative Supervisor: Mesha LOYA Date of Appointment with Administrative Supervisor: 04/02/20 Time of Appointment with Administrative Supervisor: 3:30pm Post Discharge Appointments Primary Care Physician Name Of Family Doctor: Grisel Leon (1) Diabetes mellitus type 2, uncontrolled Glycemic state: with hyperglycemia Qualified Code(s): E11.65 - Type 2 diabetes mellitus with hyperglycemia (2) Schizoaffective disorder Schizoaffective disorder type: bipolar Qualified Code(s): F25.0 - Schizoaffective disorder, bipolar type
[2020-04-01] MEDS: LORazepam 0.5 MG TAB PO PRN (20:36)
[2020-04-01] MEDS: INSULIN GLARGINE SOLOSTAR 100 UNITS/ML 3 ML PEN SQ SCH (21:06)
[2020-04-02] MEDS: INSULIN ASPART 100 UNITS/ML 3 ML PEN SC SCH ×4 (08:55→20:37)
[2020-04-02] MEDS: TRIHEXYPHENIDYL HCL 5 MG TAB PO SCH ×2 (08:55→20:52)
[2020-04-02] MEDS: ARIPiprazole 10 MG TAB PO SCH (08:55)
[2020-04-02] MEDS: metFORMIN HCL 500 MG TAB PO SCH ×2 (08:55→17:32)
[2020-04-02] MEDS: CHOLECALCIFEROL 1,000 UNITS 25 MCG TAB PO SCH (08:55)
--- NOTE | 2020-04-02 11:00 | Psychiatric Progress Note ---
Date of Service April 02, 2020 Impression / Recommendations Impression Patient with a complex history including schizoaffective disorder with frequent episodes of psychosis, reporting "alters" and command auditory hallucinations telling her to kill herself and not to take medication, admitted voluntarily. Initially she agreed to the previously devised outpatient plan to transition to Abilify Maintena, but is now declining the injection, although she has been taking oral Abilify. She is reporting resolution of auditory hallucinations and SI, and although she has not been participating in groups and tends to isolate to her room, this is consistent with behavior during past admissions, and she is tending to ADLs. She had a discharge planning meeting with her sister today, and agreed to a referral to mobile psych rehab for increased outpatient services. Plan is for discharge tomorrow if she continues to improve. (1) Schizoaffective disorder: 03/29/20 -The patient has been admitted to the locked inpatient psychiatric unit at [facility] and has been put on suicide precautions for safety. When appropriate, the patient will be referred for group and activity therapies. We will also anticipate family interventions, as permitted by the patient. -Following her significantly disturbed presentation last evening, today the patient seems to have taken a "flight into health," and says that her presenting symptoms, including hearing the voices of her "alters" have all stopped. She says that without the voices of the altered she is not suicidal, and she also says that her mood is "okay." However, inpatient psychiatric hospitalization is the least intensive level of care consistent with the patient's safety and clinical needs, given her history of waxing and waning symptomatology is observ ed during previous contact with the patient. Accordingly, additional observation at the inpatient level of hospitalization is medically necessary. 03/30 - Titrating aripiprazole to 15mg qAM starting tomorrow morning. Pt continues to be resistant to considering Abilify Maintena despite previous conversations with her outpatient psychiatric prescriber. - Pt does not appear to be actively responding to internal stimuli and is denying hallucinations since admission - but she also seems to be minimizing symptoms and is seeming to demonstrate a 'flight into health' as stated above. - Will attempt to schedule support meeting - patient requesting involvement of sister and art manager, Mesha - Pt is becoming a bit more irritable, focused more on discharge due to concern for development of claustrophobia. 03/31 - Pt agreed to titration of aripiprazole to 20mg starting tomorrow morning. Pt continues to deny side effects and perceived akathisia (has been reported with previous antipsychotic medications) - Pt continues to deny hallucinations, but has been irritable and verbalizing excuses to try to not attend group programming. - Attempts are being made to try to schedule a meeting with the patient's sister and art manager early this coming week. 04/01 - Continue aripiprazole 20mg qAM - consider need for further titration. Presently, patient continues to deny auditory hallucinations and is not verbalizing delusional thoughts/paranoia. - Support meeting scheduled for tomorrow with sister and possibly art manager - Reached out to her outpatient psychiatric prescriber with hopes to review progress and coordinate care 04/02 -Continue p.o. medications, again reviewed recommendations to transition to Abilify Maintena, given history of nonadherence and command auditory hallucin ations not to take medication, severity of symptoms when she decompensates, and better outcomes with ODELL's, but she is declining, although she indicates willingness to consider the injection as an outpatient if she feels Abilify is working well for her. She is tolerating it well without side effects. -Family meeting with sister and social service liaison completed today. Sister supportive of discharge tomorrow. Patient agreed to referral to mobile psych rehab, and will need follow-up with ALEJA Arellano, therapist Rico Britton, and VINCENZO Zimmer. (2) Diabetes mellitus type 2, uncontrolled: 03/29/20 -Patient's blood sugars will be monitored and we will continue the diabetic regimen that the patient has been following on an outpatient basis, with support and monitoring from nursing staff. -The patient's assertion is that she can independently follow her diabetic diet and medication regimen (including insulin) on her own, but acknowledges that sometimes her alters may interfere. Inventory Assets Strengths: Intelligent. Good social skills when stable. Some insight into her need to stay more connected with other people. Needs: History of florid psychosis, nonadherence, and limited cooperation with treatment. Risk Factors Assessment Male: No : No Do You Have Access To A Gun?: No Health Problems: Yes Mental Health Diagnoses: Yes Substance Use Disorders: No Previous Attempt: Yes Previous Attempt; Highly Lethal: Yes Previous Attempt; Planned: Yes Previous Attempt; Didn't Tell Anyone: Yes Family History of Suicide: No Previous Psychiatric Hospitalization: Yes Hopelessness: No Smoker: No Protective Factors Assessment Pentecostal Beliefs: Yes ("Spiritual. Believe in a higher power. Raised [employer].") : No Responsible for Young Children: No Employed: No Stable Relationships: Yes Supportive Family: Yes Good Rapport with Provider: Yes Absence of Any Risk Factors Above: No Interval History Identifying Information ZAHIRA JOHNSON ("Yosef") is a 39-year-old F who currently lives in alone in [place]. She has a history of schizoaffective disorder bipolar type and was admitted on 03/29/20 00:10 on a 201 voluntary commitment for a report of command hallucinations that tell her to commit suicide, combined with a reported intent to follow the commands. Chief Complaint "Good". Review of Systems Sleep Information Total Hours of Sleep: 6 Sleep Comments: . Meal Information Percent Meal Consumed - Breakfast: 100 Percent Meal Consumed - Lunch: 100 Percent Meal Consumed - Dinner: 100 Subjective Subjective Patient was seen & assessed and interval progress reviewed with nursing and social work. Staff reports she is refusing groups, withdraws to her room. She did have one-on-one discussions with staff, and last evening said she was having flashbacks" and requested Ativan, then began to talk in a robotic voice, asking staff not to leave because she was having flashbacks and had been bullied as a child in school. At times she would resort to normal speech, then returned to a robot voice. She endorsed low self-esteem and made negative comments about herself, then abruptly ended the discussion and said she was going to sleep. She is taking oral Abilify as, but declining Abilify Maintena. On my assessment today, she states that she came into the hospital due to command auditory hallucinations to kill herself, which resolved immediately upon admission. She states she now feels she is getting worse due to being in the hospital because she feels "claustrophobic" and does not like groups, which is typical for her. She talks at length about why she refuses groups, stating she knows she should get out of her room, but she has not a social person, never has been, and does not like hearing about other people's personal issues. She thinks she is not a social person because of trauma she experienced growing up. She denies suicidal thoughts, homicidal thoughts, hallucinations, and paranoia, and feels she will be ready to go home within the next day or so. She continues to decline Abilify Maintena, stating she wants to continue the oral medication and ensure it works well for her before getting the injection. She denies any side effects. She praises staff, and says it was very helpful to talk to them last evening when she was having anxiety. After the interview, she had a family meeting with her sister, during which she agreed to mobile psych rehab. Her sister observed that the patient sounds like she is doing better, and both she and the patient were in agreement with the plan for discharge 04/03/20. Physical Exam Psychiatric Orientation: alert and cooperative Apperance: appropriately dressed, appropriately groomed and appeared stated age Lying in bed, awake Eye Contact: + fair eye contact Motor Behavior: steady gait and station and no abnormal motor movements Speech: normal rate/rhythm/volume of speech Affect: + blunted affect "Okay." Thought Process: + circumstantial thought process Thought Content: + self deprecation Suicidal Thoughts: denies suicidal thoughts Homicidal Thoughts: denies homicidal thoughts Hallucinations: no auditory hallucinations and no visual hallucinations Cognition: recent memory grossly intact, attention grossly intact and language grossly intact Insight: + impaired insight Judgement: + impaired judgement Vital Signs (Past 24 Hours) Last Vital Signs Temp 36.7 C 04/02/20 06:38 Pulse 76 04/02/20 06:39 Resp 16 04/02/20 06:38 BP 136/85 04/02/20 06:39 Pulse Ox 100 03/29/20 00:51 Results & Data ([facility]) Laboratory Results Laboratory Results - last 24 hr 04/01/20 04/01/20 04/01/20 11:32 16:53 19:44 POC Glucose 83 143 H 124 H 04/02/20 08:41 POC Glucose 129 H Current Inpatient Medications Current Inpatient Medications: Current Inpatient Medications Acetaminophen (Acetaminophen 325 Mg Tab) 650 mg PO Q4H PRN PRN Reason: Headache or Minor Fever Stop: 04/28/20 01:08 Al Hydrox/Mg Hydrox/Simethicone (Aluminum/Magnesium Susp 30 Ml Udc) 30 ml PO Q4H PRN PRN Reason: GI Upset Stop: 04/28/20 01:08 Aripiprazole (Aripiprazole 10 Mg Tab) 20 mg PO QAM LEIF Stop: 05/01/20 08:59 Last Admin: 04/02/20 08:55 Dose: 20 mg Documented by: Bismuth Subsalicylate (Bismuth Subsalicylate Liqd 236 Ml) 15 ml PO PRN PRN PRN Reason: Loose Stool Stop: 04/28/20 01:08 Dextrose (Dextrose 50% 50 Ml Syringe) 25 - 50 ml IV UD PRN; Protocol PRN Reason: Hypoglycemia Protocol Stop: 04/28/20 20:29 Glucagon (Glucagon For Inj 1 Mg Vial) 1 mg IM UD PRN; Protocol PRN Reason: Hypoglycemia Protocol Stop: 04/28/20 20:29 Glucose (Glucose 40% Gel 15 Gm Tube) 15 - 30 gm PO UD PRN; Protocol PRN Reason: Hypoglycemia Protocol Stop: 04/28/20 20:29 Glucose (Glucose 10 Tabs/Tube) 4 - 8 tabs PO UD PRN; Protocol PRN Reason: Hypoglycemia Protocol Stop: 04/28/20 20:29 Haloperidol (Haloperidol 5 Mg Tab) 5 mg PO Q6 PRN PRN Reason: Agitation Stop: 04/28/20 05:59 Last Admin: 04/01/20 13:57 Dose: 5 mg Documented by: Hydroxyzine HCl (Hydroxyzine Hcl 25 Mg Tab) 50 mg PO HSZ PRN PRN Reason: Insomnia Stop: 04/28/20 01:08 Last Admin: 03/29/20 02:11 Dose: 50 mg Documented by: Hydroxyzine HCl (Hydroxyzine Hcl 25 Mg Tab) 25 mg PO Q4H PRN PRN Reason: Anxiety Stop: 04/28/20 01:08 Last Admin: 03/31/20 03:23 Dose: 25 mg Documented by: Insulin Aspart (Insulin Aspart 100 Units/Ml 3 Ml Pen) 0 units SC ACHS LEIF Stop: 04/28/20 21:59 Last Admin: 04/02/20 08:55 Dose: Not Given Documented by: Insulin Glargine (Insulin Glargine Solostar 100 Units/Ml 3 Ml Pen) 15 units SQ HS LEIF Stop: 04/30/20 21:59 Last Admin: 04/01/20 21:06 Dose: 15 units Documented by: Lorazepam (Lorazepam 0.5 Mg Tab) 0.5 mg PO HS PRN PRN Reason: Sleep Stop: 04/28/20 14:59 Last Admin: 04/01/20 20:36 Dose: 0.5 mg Documented by: Magnesium Hydroxide (Magnesium Hydroxide Susp 30 Ml Udc) 30 ml PO DAILY PRN PRN Reason: Constipation Stop: 04/28/20 01:08 Metformin HCl (Metformin Hcl 500 Mg Tab) 1,000 mg PO BIDM LEIF Stop: 04/28/20 17:44 Last Admin: 04/02/20 08:55 Dose: 1,000 mg Documented by: Miscellaneous (Imiquimod 5 % Cream In Packet- Order Awaiting Action) 1 ea N/A QS LEIF Stop: 04/29/20 15:59 Last Admin: 04/02/20 08:56 Dose: Not Given Documented by: Miscellaneous (Butenafine 1 % Cream- Order Awaiting Action) 1 ea N/A QS LEIF Stop: 04/28/20 15:59 Last Admin: 04/02/20 08:56 Dose: Not Given Documented by: Miscellaneous (Carbohydrates For Hypoglycemia ) 15 - 30 gm PO UD PRN PRN Reason: Hypoglycemia Treatment Stop: 04/28/20 20:29 Miscellaneous Information (Pharmacy Glycemic Mgmt Consult) 1 ea N/A UD PRN PRN Reason: Consult Stop: 04/28/20 18:47 Sodium Chloride (Sodium Chloride 0.65% Na Soln 45 Ml ([place])) 1 - 2 sprays NA PRN PRN PRN Reason: Nasal Dryness/Congestion Stop: 04/28/20 01:08 Trihexyphenidyl HCl (Trihexyphenidyl Hcl 5 Mg Tab) 5 mg PO BID LEIF Stop: 04/28/20 20:59 Last Admin: 04/02/20 08:55 Dose: 5 mg Documented by: Vitamin D (Cholecalciferol 1,000 Units 25 Mcg Tab) 2,000 units PO DAILY LEIF Stop: 04/29/20 08:59 Last Admin: 04/02/20 08:55 Dose: 2,000 units Documented by: Mental Health & Subst Abuse Tx Psychiatrist Name of Psychiatrist: Kailey Vo Psychiatrist's Date of Appointment with Psychiatrist: 05/15/20 Time of Appointment with Psychiatrist: 11:00 a.m. Psychiatric Appointment Comment: [address] [facility] Therapist Name of Therapist: Kailey Britton Therapist's Date of Therapist Appointment: 04/04/20 Time of Therapist Appointment: 9:00 am Therapy Appointment Comment: [address] [facility] Global Regulatory Affairs Manager Name of Global Regulatory Affairs Manager: Otilio Zimmer Phone Number for Global Regulatory Affairs Manager: [phone] Date of Appointment with Global Regulatory Affairs Manager: 04/02/20 Time of Appointment with Global Regulatory Affairs Manager: 3:30pm Post Discharge Appointments Primary Care Physician Name Of Family Doctor: ANIBAL Leon PA-C Primary Care Provider Appointment Comment: [address] [facility] Partial or Psych Rehab Name of Partial or Psych Rehab: [facility] Contact Information Discharge Discharge [address]: [address] [place] [id number] (1) Schizoaffective disorder Schizoaffective disorder type: bipolar Qualified Code(s): F25.0 - Schizoaffective disorder, bipolar type (2) Diabetes mellitus type 2, uncontrolled Glycemic state: with hyperglycemia Qualified Code(s): E11.65 - Type 2 diabetes mellitus with hyperglycemia
--- NOTE | 2020-04-02 13:22 | Pharmacy Report ---
Pharmacy Glycemic Short Note 2 - Date of Service April 02, 2020 - Glycemic Short BSG Results (Last 24 hours): 04/01/20 04/01/20 04/02/20 16:53 19:44 08:41 POC Glucose 143 H 124 H 129 H 04/02/20 12:10 POC Glucose 80 OUTPATIENT ANTIDIABETIC REGIMEN: * Lantus 28 units HS, metformin 1 gm bid * A1c of 6.1% 02/20/20 ASSESSMENT: 04/02 * Blood sugars at goal with current regimen, continue * Fasting may be trending upward,consider increase in lantus dose if continues to trend upward tomorrow. * Possible discharge tomorrow AM 04/01: * Patient received 15 units of lantus last PM, receiving metformin 1000 mg BIDM, currently with no carb coverage * BSGs in past 24 hours [phone] mg/dL * Fasting this AM 119 mg/dL, will continue current reduced lantus dose, monitor for fasting trend 03/30 * Patient admitted to [facility] for management of schizoaffective bipolar state. Pharmacy consulted to help with glycemic management * Fasting BSG 85 mg/dL yesterday AM, therefore evening home Lantus reduced last night by ~30% * Fasting this AM 164 mg/dL - plan to continue with same Lantus regimen for now, started on CF/CR PLAN FOR INPATIENT GLYCEMIC CONTROL: * Continue metformin 1000 mg bidm * Basal insulin * Lantus 15 units HS * Bolus insulin * NovoLog per scale ACHS or Q6hrs while NPO * Goal Range: Low 120 mg/dL - High 150 mg/dL * Correction Factor: 30 mg/dL/unit PLAN FOR DISCHARGE: * A1c 6.1% 02/20/20 - reasonable goal <7% * Would recommend continuation of home insulin regimen/metformin on discharge as long as no contraindications exist
[2020-04-02] MEDS: LORazepam 0.5 MG TAB PO PRN (20:51)
[2020-04-02] MEDS: INSULIN GLARGINE SOLOSTAR 100 UNITS/ML 3 ML PEN SQ SCH (20:53)
[2020-04-03] MEDS: TRIHEXYPHENIDYL HCL 5 MG TAB PO SCH (08:37)
[2020-04-03] MEDS: ARIPiprazole 10 MG TAB PO SCH (08:37)
[2020-04-03] MEDS: CHOLECALCIFEROL 1,000 UNITS 25 MCG TAB PO SCH (08:37)
[2020-04-03] MEDS: metFORMIN HCL 500 MG TAB PO SCH (08:37)
[2020-04-03] MEDS: INSULIN ASPART 100 UNITS/ML 3 ML PEN SC SCH ×2 (08:51→12:16)
--- NOTE | 2020-04-03 10:17 | Discharge Summary ---
Date of Service April 03, 2020 History of Present Illness The patient is a 39-year-old female who presented in the ER and reported command auditory hallucinations that were telling her to kill herself. She has a known diagnosis of schizoaffective disorder and diabetes type 2. 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 She notes that "Stiven," who she identifies as one of her alters, had taken over her body and that he was telling her to kill herself by jumping out of a window or by drowning herself. She noted that she can generally fight these urges for short periods of time and then she has no control when he takes over her body and she will do what he wants her to do. The patient is under the care and treatment of a community psychiatrist, Dr. Concepcion Vo. She had been successfully treated with Invega Sustenna and was due shortly for her next monthly injection of Invega Sustenna 156 mg IM. However, the patient developed symptoms of hyperprolactinemia, and for that reason Dr. Vo had started her on aripiprazole 5 mg by mouth approximately 1 month ago. According to the record, the plan had been to switch the patient to Abilify Maintena, but the patient began asserting that her "alter," a voice that she refers to as "Stiven" had ordered her, beginning last week, to refuse to take the Abilify Maintena, and so, currently, she refused to take it. At the time of her psychiatric evaluation, following her admission to the behavioral health unit, the patient said that, inexplicably, the voice of "Stiven" and all other voices have stopped and she is no longer contemplating suicide. In retrospect, the patient says that possibly she began experiencing command auditory hallucinations because it was getting close to the time at which she would have normally taken her next Invega Sustenna injection, and she supposes that the Depo medication may have lost potency. The patient also says that she thinks that possibly the perceptual disturbances and emergence of the "alter" that she refers to as "Stiven" may have dissipated because she had been so involved in various interviews, for example with her senior clinical project manager, emergency room staff, staff on the behavioral health unit, etc., and she thinks that perhaps this level of fairly intensive human interaction may have helped bring her back into reality. She notes that she often spends much of her time alone in her apartment and she indicates that the the perceptual disturbances, that she refers to as her "alters" are more prominent when she is isolated. We talked her about Dr. Gupta's recommendation that she begin taking Abilify Maintena, but she says that she would much prefer to take Abilify by mouth. She has a reported history of nonadherence with medications, and it was explained to her that a once a month shot would not only be more convenient, but would be more likely to help her avoid nonadherence. However, the patient was adamant that she "prefers" taking oral medicines rather than shots because she feels that giving her shots takes away her sense of self control. There was some unc ertainty about her use of lorazepam. It has been prescribed as lorazepam 0.5 mg daily as needed for anxiety, and 1 mg at bedtime as needed for sleep. However, the patient says that she may or may not take the 0.5 mg tablet during the day for sleep, and that she generally ((almost every night) takes half of a lorazepam 1 mg tablet at bedtime as needed for sleep, and then if she awakens during the night she takes the other halfand with the system she reportedly sleeps well. The patient acknowledges that she is socially isolated and has a limited support network outside of her mental health treatment providers. Physical Exam Psychiatric Orientation: alert and cooperative Apperance: appropriately dressed, appropriately groomed and appeared stated age Dressed all in black, reclining on her bed in her room, awake. Eye Contact: good eye contact Motor Behavior: no abnormal motor movements Speech: normal rate/rhythm/volume of speech Affect: + blunted affect "Good." Thought Process: goal directed thought process Thought Content: reality based without delusions Suicidal Thoughts: denies suicidal thoughts Homicidal Thoughts: denies homicidal thoughts Hallucinations: no auditory hallucinations and no visual hallucinations Cognition: recent memory grossly intact, attention grossly intact and language grossly intact Estimated Intelligence: consistent with education level Insight: + fair insight Judgement: + fair judgement Vital Signs (Past 24 Hours) Last Vital Signs Temp 36.9 C 04/03/20 06:33 Pulse 83 04/03/20 06:34 Resp 16 04/03/20 06:33 BP 145/89 H 04/03/20 06:34 Pulse Ox 100 03/29/20 00:51 Principal Diagnosis Schizoaffective disorder bipolar type Psychiatric Data The patient was hospitalized for 5 days. On admission, she agreed to transition to Abilify Maintena per her outpatient plan, but when it came time to receive the injection, she refused it, stating she wanted to continue taking the oral medication to ensure it was effective and well-tolerated before receiving the long-acting injection. Her dose of oral aripiprazole was titrated to 20 mg daily, which she tolerated well. She took her medications as prescribed and without difficulty, but continued to decline the Maintena injection, although it was repeatedly recommended. She reported a rapid resolution of command auditory hallucinations by the time she arrived on the U from the ER, and consistently denied hallucinations and suicidal thoughts throughout the remainder of her stay. She refused groups, stating she did not like groups or being around other people, and tended to isolate in her room where she spent much of the day lying in bed, awake. She did participate in one-to-one interactions with staff, and had a family meeting with the social worker palliative care and her sister, who observed that the patient sounded like she was doing better, and both the patient and her sister felt she could be discharged with outpatient treatment. She did agree to higher level of outpatient services and was referred for mobile psych rehab. Care was coordinated with her outpatient physician magistrate assistant and senior clinical project manager. She had episodes of bizarre behavior while in the hospital, for example 1 evening began talking like a robot, told staff she was having "flashbacks." She was observed to be eating and sleeping well and tending to ADLs independently. Day of Discharge Assessment Staff report the patient was withdrawn to her room for much of the day yesterday, declining groups. Mobile psych rehab referral was sent, and care was coordinated with her outpatient clinician at [facility] -earliest follow-up appointment available is > 1 month away, so a bridge appointment was scheduled with her PCP for next week. On my assessment, she states that her mood is "good," denies hallucinations and thoughts of harming herself or others, and feels she is ready to go home. She denies any safety concerns with discharge. She denies side effects to medications, and states willingness to continue oral aripiprazole. She says she spends most of her time at home on the Internet, and is able to review her follow-up appointments, including therapy tomorrow, and the plan to start mobile psych rehab. She says her anxiety was exacerbated yesterday by thinking about "how bad my life in [place] is," stating she was homeless last year, and felt that a lot of people did not like her because her alternate personalities were "doing weird things." She says that people she did not know downtown were mean to her and wanted her to move away, but she could not because she has section 8 housing. She says that her alternate personalities cause her bad behavior, but they are not controlling her anymore. She feels her current medications are helping, and was advised to request to be placed on a wait list for an earlier appointment at [facility], as her current appointment is not until 05/15/2020. Transition of Care Transition Of Care Record: was reviewed with the patient Advance Directives Advance Directives Information Provided: Yes Advance Directives: No Mental Health Advance Directive: No Advance Directives on File: No Living Will: No Power of Liquid Sugar Fortifier: No Advance Directives Reason:: Declines as Mental Health Visit. Risk Factors Assessment Risk factors mitigated by admission to the inpatient unit, use of medications to target mood and psychotic symptoms, recommendations for a long-acting injectable antipsychotic which the patient declined, coordinating care with her outpatient clinicians, referring her for higher level of outpatient services, encouraging her to attend and participate in groups and therapy which she declined, family meeting with her sister and the social worker palliative care, and working on healthy coping skills and a discharge safety plan. She is reporting improvement in mood, reso lution of auditory hallucinations, and consistently denying thoughts of harming herself or others. She is taking medication orally, eating and sleeping well, and tending to ADLs independently. She is requesting discharge, and is no longer at acute risk of harm to herself or others, so can be managed as an outpatient at this time. Male: No : No Do You Have Access To A Gun?: No Health Problems: Yes Mental Health Diagnoses: Yes Substance Use Disorders: No Previous Attempt: Yes Previous Attempt; Highly Lethal: Yes Previous Attempt; Planned: Yes Previous Attempt; Didn't Tell Anyone: Yes Family History of Suicide: No Previous Psychiatric Hospitalization: Yes Hopelessness: No Smoker: No Protective Factors Assessment Confucianist Beliefs: Yes ("Spiritual. Believe in a higher power. Raised C kotaian.") : No Responsible for Young Children: No Employed: No Stable Relationships: Yes Supportive Family: Yes Good Rapport with Provider: Yes Absence of Any Risk Factors Above: No Tobacco Cessation at Discharge Tobacco Cessation Medication Prescribed at Discharge: Not Applicable/Non-Smoker Total Time Total Time Spent: Greater Than 30 Minutes Total Time Includes: Examination of the patient, Discharge Planning and Medication Reconciliation Discharge Data Lab Results 03/28/20 03/28/20 03/28/20 18:47 18:47 18:47 WBC 8.29 RBC 4.26 Hgb 12.2 Hct 36.5 L MCV 85.7 MCH 28.6 MCHC 33.4 RDW Std Deviation 39.8 RDW Coeff of Portia 12.8 Plt Count 243 MPV 10.7 H Immature Gran % (Auto) 0.1 Neut % (Auto) 38.5 Lymph % (Auto) 52.2 [place] % (Auto) 7.7 Eos % (Auto) 1.4 Baso % (Auto) 0.1 Neut # (Auto) 3.18 Lymph # (Auto) 4.33 H [place] # (Auto) 0.64 H Eos # (Auto) 0.12 Baso # (Auto) 0.01 Immature Gran # (Auto) 0.01 Sodium 138 Potassium 3.6 Chloride 105 Carbon Dioxide 24 Anion Gap 9.0 BUN 12 Creatinine 1.05 Est Cr Clr Drug Dosing 90.9 Est GFR ( Amer) 78.0 Est GFR (Non-Af Amer) 67.3 BUN/Creatinine Ratio 11.0 Glucose 131 H POC Glucose Calcium 9.7 Total Bilirubin 0.9 AST 21 ALT 65 Alkaline Phosphatase 45 Total Protein 7.7 Albumin 3.8 Globulin 3.9 Albumin/Globulin Ratio 1.0 TSH 1.370 Urine Color Urine Appearance Urine pH Ur Specific [place] Urine Protein Urine Glucose (UA) Urine Ketones Urine Blood Urine Nitrite Urine Bilirubin Urine Urobilinogen Ur Leukocyte Esterase Urine WBC (Auto) Urine RBC (Auto) U Hyaline Cast (Auto) U Epithel Cells (Auto) Urine Bacteria (Auto) POC Ur Test Salicylates < 1.7 L Urine Opiates Screen Ur Methadone, Qual Acetaminophen < 2 L Urine Barbiturates Ur Phencyclidine (PCP) U Amphetamin/Meth Scrn MDMA (Ecstasy) Screen U Benzodiazepines Scrn Ur Cocaine Metabolite U Marijuana (THC) Screen Ethyl Alcohol mg/dL SARS-CoV-2 Ag (Rapid) 03/28/20 03/28/20 03/28/20 18:47 18:52 19:20 WBC RBC Hgb Hct MCV MCH MCHC RDW Std Deviation RDW Coeff of Portia Plt Count MPV Immature Gran % (Auto) Neut % (Auto) Lymph % (Auto) [place] % (Auto) Eos % (Auto) Baso % (Auto) Neut # (Auto) Lymph # (Auto) [place] # (Auto) Eos # (Auto) Baso # (Auto) Immature Gran # (Auto) Sodium Potassium Chloride Carbon Dioxide Anion Gap BUN Creatinine Est Cr Clr Drug Dosing Est GFR ( Amer) Est GFR (Non-Af Amer) BUN/Creatinine Ratio Glucose POC Glucose Calcium Total Bilirubin AST ALT Alkaline Phosphatase Total Protein Albumin Globulin Albumin/Globulin Ratio TSH Urine Color Yellow Urine Appearance Clear Urine pH 5.0 Ur Specific [place] 1.010 Urine Protein Negative Urine Glucose (UA) Negative Urine Ketones Negative Urine Blood 2+ H Urine Nitrite Negative Urine Bilirubin Negative Urine Urobilinogen Negative Ur Leukocyte Esterase Negative Urine WBC (Auto) 1-5 Urine RBC (Auto) 0-4 U Hyaline Cast (Auto) 0 U Epithel Cells (Auto) 5-10 H Urine Bacteria (Auto) Negative POC Ur Test Salicylates Urine Opiates Screen Ur Methadone, Qual Acetaminophen Urine Barbiturates Ur Phencyclidine (PCP) U Amphetamin/Meth Scrn MDMA (Ecstasy) Screen U Benzodiazepines Scrn Ur Cocaine Metabolite U Marijuana (THC) Screen Ethyl Alcohol mg/dL < 3.0 SARS-CoV-2 Ag (Rapid) Negative 03/28/20 03/28/20 03/28/20 19:20 19:20 23:26 WBC RBC Hgb Hct MCV MCH MCHC RDW Std Deviation RDW Coeff of Portia Plt Count MPV Immature Gran % (Auto) Neut % (Auto) Lymph % (Auto) [place] % (Auto) Eos % (Auto) Baso % (Auto) Neut # (Auto) Lymph # (Auto) [place] # (Auto) Eos # (Auto) Baso # (Auto) Immature Gran # (Auto) Sodium Potassium Chloride Carbon Dioxide Anion Gap BUN Creatinine Est Cr Clr Drug Dosing Est GFR ( Amer) Est GFR (Non-Af Amer) BUN/Creatinine Ratio Glucose POC Glucose 178 H Calcium Total Bilirubin AST ALT Alkaline Phosphatase Total Protein Albumin Globulin Albumin/Globulin Ratio TSH Urine Color Urine Appearance Urine pH Ur Specific [place] Urine Protein Urine Glucose (UA) Urine Ketones Urine Blood Urine Nitrite Urine Bilirubin Urine Urobilinogen Ur Leukocyte Esterase Urine WBC (Auto) Urine RBC (Auto) U Hyaline Cast (Auto) U Epithel Cells (Auto) Urine Bacteria (Auto) POC Ur Test NEG Salicylates Urine Opiates Screen Neg Ur Methadone, Qual Neg Acetaminophen Urine Barbiturates Neg Ur Phencyclidine (PCP) Neg U Amphetamin/Meth Scrn Neg MDMA (Ecstasy) Screen Neg U Benzodiazepines Scrn Neg Ur Cocaine Metabolite Neg U Marijuana (THC) Screen Neg Ethyl Alcohol mg/dL SARS-CoV-2 Ag (Rapid) 03/29/20 03/29/20 03/29/20 07:27 17:06 21:47 WBC RBC Hgb Hct MCV MCH MCHC RDW Std Deviation RDW Coeff of Portia Plt Count MPV Immature Gran % (Auto) Neut % (Auto) Lymph % (Auto) [place] % (Auto) Eos % (Auto) Baso % (Auto) Neut # (Auto) Lymph # (Auto) [place] # (Auto) Eos # (Auto) Baso # (Auto) Immature Gran # (Auto) Sodium Potassium Chloride Carbon Dioxide Anion Gap BUN Creatinine Est Cr Clr Drug Dosing Est GFR ( Amer) Est GFR (Non-Af Amer) BUN/Creatinine Ratio Glucose POC Glucose 85 119 H 104 H Calcium Total Bilirubin AST ALT Alkaline Phosphatase Total Protein Albumin Globulin Albumin/Globulin Ratio TSH Urine Color Urine Appearance Urine pH Ur Specific [place] Urine Protein Urine Glucose (UA) Urine Ketones Urine Blood Urine Nitrite Urine Bilirubin Urine Urobilinogen Ur Leukocyte Esterase Urine WBC (Auto) Urine RBC (Auto) U Hyaline Cast (Auto) U Epithel Cells (Auto) Urine Bacteria (Auto) POC Ur Test Salicylates Urine Opiates Screen Ur Methadone, Qual Acetaminophen Urine Barbiturates Ur Phencyclidine (PCP) U Amphetamin/Meth Scrn MDMA (Ecstasy) Screen U Benzodiazepines Scrn Ur Cocaine Metabolite U Marijuana (THC) Screen Ethyl Alcohol mg/dL SARS-CoV-2 Ag (Rapid) 03/30/20 03/30/20 03/30/20 08:35 12:50 16:26 WBC RBC Hgb Hct MCV MCH MCHC RDW Std Deviation RDW Coeff of Portia Plt Count MPV Immature Gran % (Auto) Neut % (Auto) Lymph % (Auto) [place] % (Auto) Eos % (Auto) Baso % (Auto) Neut # (Auto) Lymph # (Auto) [place] # (Auto) Eos # (Auto) Baso # (Auto) Immature Gran # (Auto) Sodium Potassium Chloride Carbon Dioxide Anion Gap BUN Creatinine Est Cr Clr Drug Dosing Est GFR ( Amer) Est GFR (Non-Af Amer) BUN/Creatinine Ratio Glucose POC Glucose 164 H 69 L* 93 Calcium Total Bilirubin AST ALT Alkaline Phosphatase Total Protein Albumin Globulin Albumin/Globulin Ratio TSH Urine Color Urine Appearance Urine pH Ur Specific [place] Urine Protein Urine Glucose (UA) Urine Ketones Urine Blood Urine Nitrite Urine Bilirubin Urine Urobilinogen Ur Leukocyte Esterase Urine WBC (Auto) Urine RBC (Auto) U Hyaline Cast (Auto) U Epithel Cells (Auto) Urine Bacteria (Auto) POC Ur Test Salicylates Urine Opiates Screen Ur Methadone, Qual Acetaminophen Urine Barbiturates Ur Phencyclidine (PCP) U Amphetamin/Meth Scrn MDMA (Ecstasy) Screen U Benzodiazepines Scrn Ur Cocaine Metabolite U Marijuana (THC) Screen Ethyl Alcohol mg/dL SARS-CoV-2 Ag (Rapid) 03/30/20 03/31/20 03/31/20 20:27 08:35 12:34 WBC RBC Hgb Hct MCV MCH MCHC RDW Std Deviation RDW Coeff of Portia Plt Count MPV Immature Gran % (Auto) Neut % (Auto) Lymph % (Auto) [place] % (Auto) Eos % (Auto) Baso % (Auto) Neut # (Auto) Lymph # (Auto) [place] # (Auto) Eos # (Auto) Baso # (Auto) Immature Gran # (Auto) Sodium Potassium Chloride Carbon Dioxide Anion Gap BUN Creatinine Est Cr Clr Drug Dosing Est GFR ( Amer) Est GFR (Non-Af Amer) BUN/Creatinine Ratio Glucose POC Glucose 140 H 101 H 80 Calcium Total Bilirubin AST ALT Alkaline Phosphatase Total Protein Albumin Globulin Albumin/Globulin Ratio TSH Urine Color Urine Appearance Urine pH Ur Specific [place] Urine Protein Urine Glucose (UA) Urine Ketones Urine Blood Urine Nitrite Urine Bilirubin Urine Urobilinogen Ur Leukocyte Esterase Urine WBC (Auto) Urine RBC (Auto) U Hyaline Cast (Auto) U Epithel Cells (Auto) Urine Bacteria (Auto) POC Ur Test Salicylates Urine Opiates Screen Ur Methadone, Qual Acetaminophen Urine Barbiturates Ur Phencyclidine (PCP) U Amphetamin/Meth Scrn MDMA (Ecstasy) Screen U Benzodiazepines Scrn Ur Cocaine Metabolite U Marijuana (THC) Screen Ethyl Alcohol mg/dL SARS-CoV-2 Ag (Rapid) 03/31/20 03/31/20 04/01/20 16:15 20:12 08:22 WBC RBC Hgb Hct MCV MCH MCHC RDW Std Deviation RDW Coeff of Portia Plt Count MPV Immature Gran % (Auto) Neut % (Auto) Lymph % (Auto) [place] % (Auto) Eos % (Auto) Baso % (Auto) Neut # (Auto) Lymph # (Auto) [place] # (Auto) Eos # (Auto) Baso # (Auto) Immature Gran # (Auto) Sodium Potassium Chloride Carbon Dioxide Anion Gap BUN Creatinine Est Cr Clr Drug Dosing Est GFR ( Amer) Est GFR (Non-Af Amer) BUN/Creatinine Ratio Glucose POC Glucose 101 H 102 H 119 H Calcium Total Bilirubin AST ALT Alkaline Phosphatase Total Protein Albumin Globulin Albumin/Globulin Ratio TSH Urine Color Urine Appearance Urine pH Ur Specific [place] Urine Protein Urine Glucose (UA) Urine Ketones Urine Blood Urine Nitrite Urine Bilirubin Urine Urobilinogen Ur Leukocyte Esterase Urine WBC (Auto) Urine RBC (Auto) U Hyaline Cast (Auto) U Epithel Cells (Auto) Urine Bacteria (Auto) POC Ur Test Salicylates Urine Opiates Screen Ur Methadone, Qual Acetaminophen Urine Barbiturates Ur Phencyclidine (PCP) U Amphetamin/Meth Scrn MDMA (Ecstasy) Screen U Benzodiazepines Scrn Ur Cocaine Metabolite U Marijuana (THC) Screen Ethyl Alcohol mg/dL SARS-CoV-2 Ag (Rapid) 04/01/20 04/01/20 04/01/20 11:32 16:53 19:44 WBC RBC Hgb Hct MCV MCH MCHC RDW Std Deviation RDW Coeff of Portia Plt Count MPV Immature Gran % (Auto) Neut % (Auto) Lymph % (Auto) [place] % (Auto) Eos % (Auto) Baso % (Auto) Neut # (Auto) Lymph # (Auto) [place] # (Auto) Eos # (Auto) Baso # (Auto) Immature Gran # (Auto) Sodium Potassium Chloride Carbon Dioxide Anion Gap BUN Creatinine Est Cr Clr Drug Dosing Est GFR ( Amer) Est GFR (Non-Af Amer) BUN/Creatinine Ratio Glucose POC Glucose 83 143 H 124 H Calcium Total Bilirubin AST ALT Alkaline Phosphatase Total Protein Albumin Globulin Albumin/Globulin Ratio TSH Urine Color Urine Appearance Urine pH Ur Specific [place] Urine Protein Urine Glucose (UA) Urine Ketones Urine Blood Urine Nitrite Urine Bilirubin Urine Urobilinogen Ur Leukocyte Esterase Urine WBC (Auto) Urine RBC (Auto) U Hyaline Cast (Auto) U Epithel Cells (Auto) Urine Bacteria (Auto) POC Ur Test Salicylates Urine Opiates Screen Ur Methadone, Qual Acetaminophen Urine Barbiturates Ur Phencyclidine (PCP) U Amphetamin/Meth Scrn MDMA (Ecstasy) Screen U Benzodiazepines Scrn Ur Cocaine Metabolite U Marijuana (THC) Screen Ethyl Alcohol mg/dL SARS-CoV-2 Ag (Rapid) 04/02/20 04/02/20 04/02/20 08:41 12:10 16:47 WBC RBC Hgb Hct MCV MCH MCHC RDW Std Deviation RDW Coeff of Portia Plt Count MPV Immature Gran % (Auto) Neut % (Auto) Lymph % (Auto) [place] % (Auto) Eos % (Auto) Baso % (Auto) Neut # (Auto) Lymph # (Auto) [place] # (Auto) Eos # (Auto) Baso # (Auto) Immature Gran # (Auto) Sodium Potassium Chloride Carbon Dioxide Anion Gap BUN Creatinine Est Cr Clr Drug Dosing Est GFR ( Amer) Est GFR (Non-Af Amer) BUN/Creatinine Ratio Glucose POC Glucose 129 H 80 99 Calcium Total Bilirubin AST ALT Alkaline Phosphatase Total Protein Albumin Globulin Albumin/Globulin Ratio TSH Urine Color Urine Appearance Urine pH Ur Specific [place] Urine Protein Urine Glucose (UA) Urine Ketones Urine Blood Urine Nitrite Urine Bilirubin Urine Urobilinogen Ur Leukocyte Esterase Urine WBC (Auto) Urine RBC (Auto) U Hyaline Cast (Auto) U Epithel Cells (Auto) Urine Bacteria (Auto) POC Ur Test Salicylates Urine Opiates Screen Ur Methadone, Qual Acetaminophen Urine Barbiturates Ur Phencyclidine (PCP) U Amphetamin/Meth Scrn MDMA (Ecstasy) Screen U Benzodiazepines Scrn Ur Cocaine Metabolite U Marijuana (THC) Screen Ethyl Alcohol mg/dL SARS-CoV-2 Ag (Rapid) 04/02/20 04/03/20 20:34 08:27 WBC RBC Hgb Hct MCV MCH MCHC RDW Std Deviation RDW Coeff of Portia Plt Count MPV Immature Gran % (Auto) Neut % (Auto) Lymph % (Auto) [place] % (Auto) Eos % (Auto) Baso % (Auto) Neut # (Auto) Lymph # (Auto) [place] # (Auto) Eos # (Auto) Baso # (Auto) Immature Gran # (Auto) Sodium Potassium Chloride Carbon Dioxide Anion Gap BUN Creatinine Est Cr Clr Drug Dosing Est GFR ( Amer) Est GFR (Non-Af Amer) BUN/Creatinine Ratio Glucose POC Glucose 115 H 142 H Calcium Total Bilirubin AST ALT Alkaline Phosphatase Total Protein Albumin Globulin Albumin/Globulin Ratio TSH Urine Color Urine Appearance Urine pH Ur Specific [place] Urine Protein Urine Glucose (UA) Urine Ketones Urine Blood Urine Nitrite Urine Bilirubin Urine Urobilinogen Ur Leukocyte Esterase Urine WBC (Auto) Urine RBC (Auto) U Hyaline Cast (Auto) U Epithel Cells (Auto) Urine Bacteria (Auto) POC Ur Test Salicylates Urine Opiates Screen Ur Methadone, Qual Acetaminophen Urine Barbiturates Ur Phencyclidine (PCP) U Amphetamin/Meth Scrn MDMA (Ecstasy) Screen U Benzodiazepines Scrn Ur Cocaine Metabolite U Marijuana (THC) Screen Ethyl Alcohol mg/dL SARS-CoV-2 Ag (Rapid) Hospital Course (1) Schizoaffective disorder: 03/29/20 -The patient has been admitted to the locked inpatient psychiatric unit at [facility] and has been put on suicide precautions for safety. When appropriate, the patient will be referred for group and activity therapies. We will also anticipate family interventions, as permitted by the patient. -Following her significantly disturbed presentation last evening, today the patient seems to have taken a "flight into health," and says that her presenting symptoms, including hearing the voices of her "alters" have all stopped. She says that without the voices of the altered she is not suicidal, and she also says that her mood is "okay." However, inpatient psychiatric hospitalization is the least intensive level of care consistent with the patient's safety and clinical needs, given her history of waxing and waning symptomatology is ob served during previous contact with the patient. Accordingly, additional observation at the inpatient level of hospitalization is medically necessary. 03/30 - Titrating aripiprazole to 15mg qAM starting tomorrow morning. Pt continues to be resistant to considering Abilify Maintena despite previous conversations with her outpatient psychiatric prescriber. - Pt does not appear to be actively responding to internal stimuli and is denying hallucinations since admission - but she also seems to be minimizing symptoms and is seeming to demonstrate a 'flight into health' as stated above. - Will attempt to schedule support meeting - patient requesting involvement of sister and senior clinical project manager, Mesha - Pt is becoming a bit more irritable, focused more on discharge due to concern for development of claustrophobia. 03/31 - Pt agreed to titration of aripiprazole to 20mg starting tomorrow morning. Pt continues to deny side effects and perceived akathisia (has been reported with previous antipsychotic medications) - Pt continues to deny hallucinations, but has been irritable and verbalizing excuses to try to not attend group programming. - Attempts are being made to try to schedule a meeting with the patient's sister and senior clinical project manager early this coming week. 04/01 - Continue aripiprazole 20mg qAM - consider need for further titration. Presently, patient continues to deny auditory hallucinations and is not verbalizing delusional thoughts/paranoia. - Support meeting scheduled for tomorrow with sister and possibly senior clinical project manager - Reached out to her outpatient psychiatric prescriber with hopes to review progress and coordinate care 04/02 -Continue p.o. medications, again reviewed recommendations to transition to Abilify Maintena, given history of nonadherence and command auditory wood ucinations not to take medication, severity of symptoms when she decompensates, and better outcomes with ODELL's, but she is declining, although she indicates willingness to consider the injection as an outpatient if she feels Abilify is working well for her. She is tolerating it well without side effects. -Family meeting with sister and social worker palliative care completed today. Sister supportive of discharge tomorrow. Patient agreed to referral to mobile psych rehab, and will need follow-up with ALEJA Arellano, therapist Rico Britton, and VINCENZO Zimmer. 04/03 -Prescription issued for aripiprazole 20 mg p.o. daily, patient encouraged to transition to Abilify Maintena for improved adherence/outcomes, and reduce side effect risk. -Follow-up with outpatient treatment as below, advised patient to request to be placed on a wait list for an earlier appointment at [place], and bridge appointment scheduled with her PCP in the interim. -Referred for mobile psych rehab, and follow-up with VINCENZO Zimmer. (2) Diabetes mellitus type 2, uncontrolled: 03/29/20 -Patient's blood sugars will be monitored and we will continue the diabetic regimen that the patient has been following on an outpatient basis, with support and monitoring from nursing staff. -The patient's assertion is that she can independently follow her diabetic diet and medication regimen (including insulin) on her own, but acknowledges that sometimes her alters may interfere. Mental Health & Subst Abuse Tx Psychiatrist Name of Psychiatrist: Kailey Vo Psychiatrist's Date of Appointment with Psychiatrist: 05/15/20 Time of Appointment with Psychiatrist: 11:00 a.m. Psychiatric Appointment Comment: [facility] Therapist Name of Therapist: Kailey Britton Therapist's Date of Therapist Appointment: 04/04/20 Time of Therapist Appointment: 9:00 am Therapy Appointment Comment: [address] [facility] Corporate Executive Name of Corporate Executive: Otilio Zimmer Phone Number for Corporate Executive: [phone] Date of Appointment with Corporate Executive: 04/02/20 Time of Appointment with Corporate Executive: 3:30pm Post Discharge Appointments Primary Care Physician Name Of Family Doctor: ANIBAL Leon PA-C Primary Care Date of Appointment with PCP: 04/09/20 Time of Appointment with PCP: 1:30 p.m. Provider Appointment Comment: In person - [facility] Partial or Psych Rehab Name of Partial or Psych Rehab: [facility] Smoking Cessation Counseling Tobacco Cessation Medication Prescribed at Discharge: Not Applicable/Non-Smoker Contact Information Discharge Discharge Address: [address] [place] [id number] Discharge Plan Discharge Items Patient Disposition: Home - Self-Care Reason For Visit: SCHIZOAFFECTIVE DISORDER Discharge Diagnosis: Schizoaffective disorder bipolar type Activity: Per Instructions section Non-emergency contact: Psychiatrist, Therapist and Contact Lens Assistant Call non-emergency contact if: you have any medication questions and your symptoms worsen Follow-up/Referrals: Dudukovich,Tia M., PA-C [Primary Care Provider] - Diet: Carb Consistent or DM2 Addtl Attending Provider Instructions: SPECIAL CARE INSTRUCTIONS: 1. Follow through with your scheduled aftercare appointments. If unable to keep an appointment, please call to reschedule. We recommend you follow-up with ALEJA Arellano at [facility] within 2 weeks of discharge, if an appointment is not available in that timeframe, please request to be placed on the wait list for an earlier appointment. 2. Take your medication only as prescribed. Medication should not be changed or stopped without the approval of your doctor. In the event of worsening symptoms or concerns about side effects, contact your doctor immediately. 3. Utilize new healthy coping skills, anger management skills, and stress management skills learned during your hospitalization. Journal feelings and process them with a support person. Identify stressors or situations that may result in relapse, deterioration or inappropriate behaviors and develop a plan to deal with those issues. 4. If your coping skills are ineffective and you are in crisis, contact your outpatient providers for direction. If unable to reach your providers, please call the [facility] CRISIS LINE AT , go to the [facility] walk-in center at [address], [address], [place], or go to the closest Emergency Room. 5. Avoid alcohol and un-prescribed drugs. 6. You have been provided with the Mental Health Advance Directives Pamphlet for your review. AFTERCARE APPOINTMENTS: * Please call your insurance company prior to your scheduled appointment to confirm your aftercare providers are covered. Take your insurance information to your appointments. WHO TO CALL AND WHEN: Medical Emergencies: For questions or emergencies related to your hospital stay, please contact the Inpatient Behavioral Health Unit at [phone]. A department clinician is on-call 07/09 for the Behavioral Health Unit for emergencies At any time you feel your situation is an emergency, you may also call 911 immediately. Pending Studies at Discharge: No Stand-Alone Forms: My iMeigu, Smoking Cessation Medications and DC Order Prescriptions: New aripiprazole 20 mg tablet 20 mg PO QAM Qty: 30 RF: 0 Continued (DME) blood-glucose meter [OneTouch Verio Meter] Misc See Rx Instructions .ROUTE .MEDSUPPLY Qty: 1 RF: 0 (DME) lancets [OneTouch Delica Lancets] 33 gauge misc See Rx Instructions .ROUTE .MEDSUPPLY Qty: 200 RF: 3 (DME) OneTouch Verio test strips Strip See Rx Instructions .ROUTE .MEDSUPPLY Qty: 200 RF: 3 (DME) FreeStyle Genie 14 Day [place] Misc See Rx Instructions .ROUTE .MEDSUPPLY Qty: 1 RF: 0 (DME) FreeStyle Genie 14 Day Sensor Kit See Rx Instructions .ROUTE .MEDSUPPLY Qty: 2 RF: 5 butenafine 1 % cream 1 applic TOP BID Qty: 30 RF: 1 (DME) pen needle, diabetic [BD Ultra-Fine Mariel Pen Needle] 32 gauge x 5/32" needle See Rx Instructions .ROUTE .MEDSUPPLY Qty: 100 RF: 3 Lantus Solostar U-100 Insulin 100 unit/mL (3 mL) insulin pen 28 unit SQ HS Qty: 15 RF: 5 ergocalciferol (vitamin D2) 50 mcg (2,000 unit) capsule 50 mcg PO DAILY Qty: 30 RF: 5 lorazepam 0.5 mg tablet 0.5 mg PO DAILY PRN (Reason: Anxiety) RF: 0 trihexyphenidyl 5 mg tablet 5 mg PO BID RF: 0 metformin 1,000 mg tablet 1,000 mg PO BIDM RF: 0 imiquimod 5 % cream in packet See Rx Instructions .ROUTE .COMPLEX RF: 0 Discontinued Invega Sustenna 156 mg/mL syringe 234 mg IM Q30D RF: 0 lorazepam 1 mg Tablet 1 mg PO HS RF: 0 aripiprazole 5 mg Tablet 5 mg PO HS RF: 0 Discharge Orders: Discharge Order (Routine); Ordered 04/03/20 Ordered By: April Perkins Admission Data Admit Date/Time: 03/29/20 00:10 Attending Provider: Heriberto Ojeda Admit Provider: Millie Deluca Primary Care Provider: Grisel Leon Other Interventions: PSY Interdisciplinary Discharge Planning Last Done: 04/02/20 15:24 Coding Level of Care Code 69183 D/C day mgmt > 30 min Diagnoses Schizoaffective disorder F25.0 Schizoaffective disorder type: bipolar Diabetes mellitus type 2, uncontrolled E11.65 Glycemic state: with hyperglycemia
== END 2020-04-03 13:55 | disposition home or self-care (01) | DRG 885 ==
LOC: ED 18:07 → 3S 03-29 00:10 → ED 03-29 00:31